=== PATIENT | male | born 1945 | race Caucasian/White ===

== ENCOUNTER 2016-10-27 | Outpatient (CLI) | payer MEDICARE, OTHER | END 2016-10-27 01:04 | disposition short-term general hospital (02) | DX: R07.9 Chest pain, unspecified (principal) | CPT/HCPCS: A0425; A0427 ==

== ENCOUNTER 2016-11-02 13:22 | Outpatient (CLI) | payer MEDICARE, OTHER | END 2016-11-02 13:23 | disposition home or self-care (01) | DX: J84.10 Pulmonary fibrosis, unspecified (principal); E11.9 Type 2 diabetes mellitus without complications; I25.10 Atherosclerotic heart disease of native coronary artery without angina pectoris; M54.5 Low back pain ==

== ENCOUNTER 2016-12-23 14:07 | Outpatient (CLI) | payer MEDICARE, OTHER | END 2016-12-23 14:08 | disposition home or self-care (01) | DX: G47.33 Obstructive sleep apnea (adult) (pediatric) (principal) | CPT/HCPCS: 99214; G0463 ==

== ENCOUNTER 2017-01-25 11:29 | Outpatient (CLI) | payer MEDICARE, OTHER ==
[2017-01-25 19:50] LABS: ALBUMIN/GLOBULIN RATIO 1.1 (1.0-2.2); BILIRUBIN,TOTAL 0.3 mg/dL (0.2-1.0); CALCIUM 9.5 mg/dL (8.5-10.3); CREATININE 0.9 mg/dL (0.6-1.2); POTASSIUM 4.1 mmol/L (3.5-5.0); TOTAL PROTEIN 7.5 g/dL (6.7-8.2)
[2017-01-25 20:06] LABS: BASOPHILS # (AUTO) 0.1 10^3/uL (0.0-0.1); BASOPHILS % (AUTO) 0.6 %; EOSINOPHILS # (AUTO) 0.3 10^3/uL (0.0-0.7); EOSINOPHILS % (AUTO) 2.3 %; HCT - HEMATOCRIT 41.2 % (42.0-52.0); HGB - HEMOGLOBIN 13.6 g/dL (14.0-18.0); LYMPHOCYTES # (AUTO) 1.6 10^3/uL (1.5-3.5); LYMPHOCYTES % (AUTO) 13.1 %; MEAN CORPUSCULAR HEMOGLOBIN 29.4 pg (27.0-31.0); MEAN CORPUSCULAR VOLUME 89.2 fL (80.0-94.0); MEAN PLATELET VOLUME 9.4 fL (7.4-11.4); MONOCYTES # (AUTO) 0.9 10^3/uL (0.0-1.0); MONOCYTES % (AUTO) 7.5 %; NEUTROPHILS # (AUTO) 9.1 10^3/uL (1.5-6.6); NEUTROPHILS % (AUTO) 76.5 %; NUCLEATED RED BLOOD CELLS AUTO 0.1 /100WBC; RED BLOOD COUNT 4.62 10^6/uL (4.70-6.10); RED CELL DISTRIBUTION WIDTH 14.3 % (12.0-15.0); UNCORRECTED WHITE BLOOD COUNT 11.9 x10^3/uL; WHITE BLOOD COUNT 11.9 x10^3/uL (4.8-10.8)
== END 2017-01-25 23:59 | disposition home or self-care (01) ==
LOC: LAB.WCP 11:29
PROVIDERS: ATTEND Family Medicine
DX: E11.9 Type 2 diabetes mellitus without complications (principal); I25.10 Atherosclerotic heart disease of native coronary artery without angina pectoris
CPT/HCPCS: 36415; 80053; 85025

== ENCOUNTER 2017-02-16 04:27 | Outpatient (CLI) | payer MEDICARE, OTHER | END 2017-02-16 04:28 | disposition critical access hospital (66) | LOC: EMS 04:27 | PROVIDERS: ATTEND Surgery | DX: R07.9 Chest pain, unspecified (principal) | CPT/HCPCS: A0425; A0427 ==

== ENCOUNTER 2017-02-16 04:45 | Emergency (ER) | payer MEDICARE, OTHER ==
[2017-02-16] MEDS ORDERED: SODIUM CHLORIDE 0.9% 1,000 ML IV ONE (05:06)
--- NOTE | 2017-02-16 05:08 | ED Physician Documentation ---
PD HPI CHEST PAIN - Stated complaint Stated Complaint: CP - Chief complaint Chief Complaint: Cardiac - History obtained from History obtained from: Patient, EMS - History of Present Illness Timing - onset: Enter time (2199), Today Timing - onset during: Rest Timing - duration: Hours Timing - details: Gradual onset, Now resolved Quality: Pressure Location: Substernal, Left chest Improved by: Nitro (given by medics) Worsened by: Exertion Associated symptoms: No: Shortness of air, Diaphoresis, Nausea, Vomiting Similar symptoms before: Diagnosis (angina) Recently seen: Other (had a stent placed in December of this year saw the body designer on 02-10-17 and his metoprolol was increased to 3 pills per day.) - Additional information Additional information: 71 y/o male with a history of CAD and angina has had angina this evening that has not responded to 3 nitros given at home and he did get relief of this with nitro given in the ambulance. He arrives pain free. He notes that he has angina and uses nitro about 3 times per week with exertion or stress and this usually works. Tonight he was celebrating with a granddaughter graduating and he had extra cake and ice cream today and he has not been taking care of his diabetes. Review of Systems Constitutional: denies: Fever Eyes: denies: Decreased vision Ears: denies: Ear pain Nose: denies: Congestion Throat: denies: Sore throat Cardiac: reports: Chest pain / pressure. denies: Palpitations, Pedal edema, Calf pain Respiratory: denies: Dyspnea, Cough, Wheezing GI: denies: Abdominal Pain, Nausea, Vomiting : denies: Dysuria, Frequency PD PAST MEDICAL HISTORY - Past Medical History Cardiovascular: Congestive heart failure, Hypertension, Coronary artery disease , Valve disorder Endocrine/Autoimmune: Type 2 diabetes GI: GERD Musculoskeletal: Fibromyalgia - Past Surgical History Past Surgical History: Yes Cardiovascular: Coronary stent, Other - Present Medications Home Medications: Ambulatory Orders Medication Instructions Recorded Confirmed Albuterol 2.5 mg INH Q4H PRN 06/09/13 02/16/17 Amitriptyline [Elavil] 50 mg PO HS 06/09/13 02/16/17 Aspirin Chewable [St Jr 81 mg PO DAILY 06/09/13 02/16/17 Aspirin] Atorvastatin Calcium [Lipitor] 80 mg PO HS 06/09/13 02/16/17 Clonazepam [Klonopin] 0.5 mg PO HS 06/09/13 02/16/17 Glucosamine Sulfate Dipot Chlr 1,000 mg PO DAILY 06/09/13 02/16/17 [Glucosamine] HYDROcod/ACETAM 5/325 [Vicodin 1 - 2 ea PO Q6H PRN 06/09/13 02/16/17 5/325] Insulin Glargine,Hum.rec.anlog 35 unit SQ QAM 06/09/13 02/16/17 [Lantus] Metformin HCl [Metformin HCl ER] 500 mg PO BID 06/09/13 02/16/17 Metoprolol Succinate [Toprol Xl] 50 mg PO BID 06/09/13 02/16/17 Mometasone Furoate [Nasonex] 17 gm NS DAILY PRN 06/09/13 02/16/17 Multivitamin [Multi-Vitamin Daily] 1 each PO DAILY 06/09/13 02/16/17 Nitroglycerin [Nitrostat] 0.4 mg SL Q5MIN PRN 06/09/13 02/16/17 Omeprazole 20 mg PO BID 06/09/13 02/16/17 Ranitidine HCl [Acid Control] 150 mg PO HS 06/09/13 02/16/17 glipiZIDE [Glucotrol] 5 mg PO QAM 06/09/13 02/16/17 Cholecalciferol (Vitamin D3) 1,000 unit PO DAILY 09/11/13 02/16/17 [Vitamin D3] Isosorbide Mononitrate ER [Imdur] 30 mg PO DAILY 09/11/13 02/16/17 Ascorbic Acid [Vitamin C] 1,000 mg PO DAILY 07/05/15 02/16/17 Ezetimibe [Zetia] 10 mg PO DAILY PM 02/25/16 02/16/17 - Allergies Allergies/Adverse Reactions: Allergies Allergy/AdvReac Type Severity Reaction Status Date / Time amiodarone Allergy Severe Anaphylaxis Verified 02/16/17 04:54 levodopa Allergy Severe Nausea Verified 02/16/17 04:54 venom-honey bee Allergy Severe Edema/Light Verified 02/16/17 04:54 [bee venom (honey bee)] headed moxifloxacin HCl * AdvReac Severe GI upset Verified 02/16/17 04:54 [From Avelox] - Social History Does the pt smoke?: No Smoking Status: Never smoker Does the pt drink ETOH?: No Does the pt have substance abuse?: No - Immunizations Immunizations are current?: Yes - POLST Patient has POLST: Yes POLST Status: Limited Interventions PD ED PE NORMAL - Vitals Vital signs reviewed: Yes (hypertensive. ) - General General: Alert and oriented X 3, No acute distress, Well developed/nourished - HEENT HEENT: Atraumatic, PERRL, EOMI - Neck Neck: Supple, no meningeal sign - Cardiac Cardiac: RRR, Other (2/6 holosystolic blowing murmer at LSB) - Respiratory Respiratory: No respiratory distress, Clear bilaterally - Abdomen Abdomen: Soft, Non tender - Back Back: No CVA TTP, No spinal TTP - Derm Derm: Normal color, Warm and dry, No rash - Extremities Extremities: No deformity, No edema - Neuro Neuro: Alert and oriented X 3, No motor deficit, No sensory deficit, Normal speech - Psych Psych: Normal mood, Normal affect Results - Vitals Vitals: Vital Signs - 24 hr 02/16/17 02/16/17 02/16/17 04:47 05:52 06:10 Temperature 36.3 C L Heart Rate 84 77 89 Respiratory 17 18 21 Rate Blood Pressure 179/82 H 165/75 H 174/84 H O2 Saturation 96 100 100 02/16/17 02/16/17 02/16/17 06:35 06:49 07:06 Temperature Heart Rate 86 90 85 Respiratory 18 19 19 Rate Blood Pressure 182/80 H 160/76 H 152/81 H O2 Saturation 99 100 100 Oxygen O2 Source Nasal cannula - EKG (time done) 0452 Rate: Rate (enter#) (79) Rhythm: LAE Intervals: RBBB Compare to prior EKG: Changed from prior EKG (SPT 07-05-15 rate has increased. ) Computer interpretation: Agree with computer - Labs Labs: Laboratory Tests 02/16/17 02/16/17 02/16/17 05:49 05:49 05:49 WBC RBC Hgb Hct MCV MCH MCHC RDW Plt Count MPV Neut # Lymph # Trigg # Eos # Baso # Absolute Nucleated RBC Nucleated RBCs Sodium 136 Potassium 4.5 Chloride 101 Carbon Dioxide 27 Anion Gap 8.0 BUN 12 Creatinine 0.8 Estimated GFR (MDRD) 96 Glucose 324 H Calcium 8.8 Total Bilirubin 0.4 AST 17 ALT 23 Alkaline Phosphatase 94 Troponin I 0.05 B-Natriuretic Peptide 148 H Total Protein 6.9 Albumin 3.8 Globulin 3.1 Albumin/Globulin Ratio 1.2 Lipase 14 L 02/16/17 06:10 WBC 8.5 RBC 3.90 L Hgb 11.7 L Hct 34.9 L MCV 89.4 MCH 30.1 MCHC 33.7 RDW 14.2 Plt Count 163 MPV 8.7 Neut # 6.6 Lymph # 0.9 L Trigg # 0.7 Eos # 0.2 Baso # 0.1 Absolute Nucleated RBC 0.00 Nucleated RBCs 0.0 Sodium Potassium Chloride Carbon Dioxide Anion Gap BUN Creatinine Estimated GFR (MDRD) Glucose Calcium Total Bilirubin AST ALT Alkaline Phosphatase Troponin I B-Natriuretic Peptide Total Protein Albumin Globulin Albumin/Globulin Ratio Lipase - Rads (name of study) 2 view chest Radiology: Prelim report reviewed (Impression: 1. Postoperative changes with chronic pleural and parenchymal opacities. 2. Minimal superimposed acute infiltrate or edema not excluded.), EMP read indepedently, See rad report Procedures - IVC sono (time) 0455 Bedside IVC sono: IVC measures (cm) (1.02), IVC collapsed c insp (cm) (complete) , Dehydration PD MEDICAL DECISION MAKING - ED course Complexity details: reviewed old records, reviewed results, re-evaluated patient , considered differential, d/w patient, d/w family ED course: 71 y/o male with a history of angina is usually stable with this and requires only one nitro. He has bad CAD with [address] This morning he appears mildly dehydrated and his angina recurs despite addition of fluids. He is given a 5th and a 6th nitro and his pressure is running high and he is given an inch of nitro paste. Dr. Hoyt cardiology at [facility] diamond powder mixer for Dr. Martinez has accepted the patient in transfer and we have started a heparin drip as well. Departure - Departure Disposition: 02 Transfer Acute Care Hosp Clinical Impression: Unstable angina, Dehydration Hypertension Qualifiers: Hypertension type: essential hypertension Qualified Code(s): I10 - Essential ( primary) hypertension Condition: Fair
[2017-02-16] MEDS ORDERED: NITROGLYCERIN SL 0.4 MG TABLET SL ONE (05:22)
[2017-02-16] MEDS ORDERED: NITROGLYCERIN SL 0.4 MG TABLET SL STA ×3 (05:22→07:44)
--- NOTE | 2017-02-16 05:53 | XRAY Preliminary Report ---
Exam: XR Chest 2 View PA/LAT IMPRESSION: 1. Postoperative changes with chronic pleural and parenchymal opacities. 2. Minimal superimposed acute infiltrate or edema not excluded. [facility] SITE ID: [id number]
--- NOTE | 2017-02-16 05:56 | XRAY Report ---
EXAM: CHEST RADIOGRAPHY EXAM DATE: 02/16/2017 05:35 AM. CLINICAL HISTORY: Chest pain . COMPARISON: 02/26/2016. TECHNIQUE: 2 views. FINDINGS: Lungs/Pleura: Chronic pleural and parenchymal opacities are again seen. There could be minimal superi mposed acute infiltrate or edema. No pneumothorax. Mediastinum: Heart and mediastinal contours are unremarkable. Other: Median sternotomy and CABG. IMPRESSION: 1. Postoperative changes with chronic pleural and parenchymal opacities. 2. Minimal superimposed acute infiltrate or edema not excluded. [facility] Referring Provider Line: [phone] SITE ID: [id number]
[2017-02-16] MEDS ORDERED: NITROGLYCERIN 2% PASTE TOP STA ×2 (06:08→07:45)
[2017-02-16] MEDS ORDERED: NITROGLYCERIN 2% PASTE TOP ONE ×2 (06:08→07:45)
[2017-02-16 06:10] LABS: ALBUMIN/GLOBULIN RATIO 1.2 (1.0-2.2); BILIRUBIN,TOTAL 0.4 mg/dL (0.2-1.0); CALCIUM 8.8 mg/dL (8.5-10.3); CREATININE 0.8 mg/dL (0.6-1.2); POTASSIUM 4.5 mmol/L (3.5-5.0); TOTAL PROTEIN 6.9 g/dL (6.7-8.2)
[2017-02-16 06:16] LABS: BASOPHILS # (AUTO) 0.1 10^3/uL (0.0-0.1); BASOPHILS % (AUTO) 0.6 %; EOSINOPHILS # (AUTO) 0.2 10^3/uL (0.0-0.7); EOSINOPHILS % (AUTO) 2.7 %; HCT - HEMATOCRIT 34.9 % (42.0-52.0); HGB - HEMOGLOBIN 11.7 g/dL (14.0-18.0); LYMPHOCYTES # (AUTO) 0.9 10^3/uL (1.5-3.5); LYMPHOCYTES % (AUTO) 10.4 %; MEAN CORPUSCULAR HEMOGLOBIN 30.1 pg (27.0-31.0); MEAN CORPUSCULAR HGB CONC 33.7 g/dL (32.0-36.0); MEAN CORPUSCULAR VOLUME 89.4 fL (80.0-94.0); MEAN PLATELET VOLUME 8.7 fL (7.4-11.4); MONOCYTES # (AUTO) 0.7 10^3/uL (0.0-1.0); MONOCYTES % (AUTO) 8.2 %; NEUTROPHILS # (AUTO) 6.6 10^3/uL (1.5-6.6); NEUTROPHILS % (AUTO) 78.1 %; RED CELL DISTRIBUTION WIDTH 14.2 % (12.0-15.0); UNCORRECTED WHITE BLOOD COUNT 8.5 x10^3/uL; WHITE BLOOD COUNT 8.5 x10^3/uL (4.8-10.8)
[2017-02-16] MEDS ORDERED: HEPARIN 5,000 UNIT/ML VIAL IVP STA (06:54)
[2017-02-16] MEDS ORDERED: HEPARIN 25,000 UNITS/500 ML 500 ML IV STA (06:54)
[2017-02-16] MEDS ORDERED: HEPARIN 5,000 UNIT/ML VIAL ONE (06:58)
[2017-02-16] MEDS ORDERED: HEPARIN 25,000 UNITS/500 ML 500 ML IV ONE (06:59)
[2017-02-16 07:53] VITALS: BP 163/81
== END 2017-02-16 08:00 | disposition short-term general hospital (02) ==
LOC: EDUNIT# → ED 04:45 → SUPCPDRO 04:45 → ED 08:00
DX: I25.110 Atherosclerotic heart disease of native coronary artery with unstable angina pectoris (principal); E86.0 Dehydration; I45.10 Unspecified right bundle-branch block; R94.31 Abnormal electrocardiogram [ECG] [EKG]; I11.0 Hypertensive heart disease with heart failure; I50.9 Heart failure, unspecified; E11.9 Type 2 diabetes mellitus without complications; Z79.4 Long term (current) use of insulin; Z79.84 Long term (current) use of oral hypoglycemic drugs; K21.9 Gastro-esophageal reflux disease without esophagitis; M79.7 Fibromyalgia; Z79.82 Long term (current) use of aspirin
CPT/HCPCS: 36415; 71020; 80053; 83690; 83880; 84484; 85025; 93005; 93010; 96361; 96365; 96376; 99284; 99285; A9270

== ENCOUNTER 2017-02-16 08:04 | Outpatient (CLI) | payer MEDICARE, OTHER | END 2017-02-16 08:05 | disposition short-term general hospital (02) | LOC: EMS 08:04 | PROVIDERS: ATTEND Surgery | DX: I20.0 Unstable angina (principal) | CPT/HCPCS: A0170; A0425; A0426 ==

== ENCOUNTER 2017-03-22 08:00 | Outpatient (CLI) | payer MEDICARE, OTHER ==
[2017-03-22 20:05] LABS: BASOPHILS # (AUTO) 0.1 10^3/uL (0.0-0.1); BASOPHILS % (AUTO) 0.7 %; EOSINOPHILS # (AUTO) 0.4 10^3/uL (0.0-0.7); EOSINOPHILS % (AUTO) 5.1 %; HCT - HEMATOCRIT 35.7 % (42.0-52.0); HGB - HEMOGLOBIN 11.9 g/dL (14.0-18.0); LYMPHOCYTES # (AUTO) 1.2 10^3/uL (1.5-3.5); LYMPHOCYTES % (AUTO) 13.8 %; MEAN CORPUSCULAR HEMOGLOBIN 29.6 pg (27.0-31.0); MEAN CORPUSCULAR HGB CONC 33.4 g/dL (32.0-36.0); MEAN CORPUSCULAR VOLUME 88.4 fL (80.0-94.0); MEAN PLATELET VOLUME 8.5 fL (7.4-11.4); MONOCYTES # (AUTO) 0.6 10^3/uL (0.0-1.0); MONOCYTES % (AUTO) 7.5 %; NEUTROPHILS # (AUTO) 6.1 10^3/uL (1.5-6.6); NEUTROPHILS % (AUTO) 72.9 %; RED BLOOD COUNT 4.04 10^6/uL (4.70-6.10); RED CELL DISTRIBUTION WIDTH 14.6 % (12.0-15.0); UNCORRECTED WHITE BLOOD COUNT 8.4 x10^3/uL; WHITE BLOOD COUNT 8.4 x10^3/uL (4.8-10.8)
[2017-03-22 20:34] LABS: HEMOGLOBIN A1C 0.7 g/dL
[2017-03-22 21:02] LABS: ALBUMIN/GLOBULIN RATIO 1.4 (1.0-2.2); BILIRUBIN,TOTAL < 0.2 mg/dL (0.2-1.0); BUN - BLOOD UREA NITROGEN 11 mg/dL (6-20); CARBON DIOXIDE - CO2 28 mmol/L (21-32); CHLORIDE 103 mmol/L (101-111); CREATININE 0.9 mg/dL (0.6-1.2); GFR - MDRD 83 (>89); GLUCOSE 114 mg/dL (70-100); POTASSIUM 4.4 mmol/L (3.5-5.0); SODIUM 138 mmol/L (135-145); TOTAL PROTEIN 6.6 g/dL (6.7-8.2)
[2017-03-22 22:37] LABS: PLATELET MORPHOLOGY NORMAL APPEARANCE (NORMAL)
[2017-03-22 22:38] LABS: PLATELET ESTIMATE, MANUAL NORMAL (130-450,000) (NORMAL)
== END 2017-03-22 08:01 | disposition home or self-care (01) ==
LOC: LAB.WCP 08:00
PROVIDERS: ATTEND Family Medicine
DX: J18.0 Bronchopneumonia, unspecified organism (principal); E11.9 Type 2 diabetes mellitus without complications; I20.0 Unstable angina
CPT/HCPCS: 36415; 80053; 83036; 85025

== ENCOUNTER 2017-04-23 11:57 | Outpatient (CLI) | payer MEDICARE, OTHER | END 2017-04-23 11:58 | disposition critical access hospital (66) | LOC: EMS 11:57 | PROVIDERS: ATTEND Surgery | DX: R07.9 Chest pain, unspecified (principal) | CPT/HCPCS: A0425; A0427 ==

== ENCOUNTER 2017-04-23 12:16 | Emergency (ER) | payer MEDICARE, OTHER ==
--- NOTE | 2017-04-23 12:57 | ED Physician Documentation ---
PD HPI CHEST PAIN - Stated complaint Stated Complaint: CP - Chief complaint Chief Complaint: Cardiac - History obtained from History obtained from: Patient - History of Present Illness Timing - onset: Last night (CP last night for about an hour, improved with few nitro SL. He awoke with some dull pains; not improved with NTG.) Timing - onset during: Rest Timing - details: Abrupt onset Quality: Aching, Pain Location: Substernal, Left chest Radiation: No: Jaw, Neck, Back Improved by: No: Nitro Worsened by: No: Exertion, Inspiration, Movement, Palpation Associated symptoms: Shortness of air. No: Diaphoresis, Nausea, Feeling faint / dizzy, Palpitations Similar symptoms before: Diagnosis (angina and prior MIs. Last seen by Cardiology March with med changes, seen and admitted for CP February. Last heart cath November 2016 without stentable lesions (small vessel occlusions that are too small/distal to stent).) Recently seen: Clinic, Emergency Dept, Admitted Review of Systems Constitutional: denies: Fever, Chills Nose: denies: Rhinorrhea / runny nose, Congestion Throat: denies: Sore throat Cardiac: reports: Chest pain / pressure, Pedal edema. denies: Palpitations, Calf pain Respiratory: denies: Cough GI: denies: Abdominal Pain, Nausea, Vomiting, Diarrhea : denies: Frequency, Hematuria Skin: denies: Rash, Lesions Neurologic: denies: Generalized weakness, Focal weakness, Numbness, Near syncope Endocrine: denies: Weight loss, Weight gain Immunocompromised: denies: Immunocompromised PD PAST MEDICAL HISTORY - Past Medical History Past Medical History: Yes Cardiovascular: Congestive heart failure, Hypertension, Coronary artery disease , [place], Arrhythmia, Valve disorder Respiratory: Shortness of breath, Sleep apnea, CPAP use Neuro: Tremors Endocrine/Autoimmune: Type 2 diabetes GI: GERD, Chronic constipation, Diverticulitis HEENT: Other Psych: None Musculoskeletal: Osteoarthritis, Fibromyalgia, Rheumatoid arthritis Derm: None - Past Surgical History Past Surgical History: Yes General: Other Cardiovascular: Coronary stent, Other - Present Medications Home Medications: Ambulatory Orders Medication Instructions Recorded Confirmed Albuterol 2.5 mg INH Q4H PRN 06/09/13 04/23/17 Amitriptyline [Elavil] 50 mg PO HS 06/09/13 04/23/17 Aspirin Chewable [St Jr 81 mg PO DAILY 06/09/13 04/23/17 Aspirin] Clonazepam [Klonopin] 0.5 mg PO HS 06/09/13 04/23/17 HYDROcod/ACETAM 5/325 [Vicodin 1 - 2 ea PO Q6H PRN 06/09/13 04/23/17 5/325] Insulin Glargine,Hum.rec.anlog 35 unit SQ QAM 06/09/13 04/23/17 [Lantus] Metformin HCl [Metformin HCl ER] 500 mg PO BID 06/09/13 04/23/17 Metoprolol Succinate [Toprol Xl] 50 mg PO TID 06/09/13 04/23/17 Mometasone Furoate [Nasonex] 17 gm NS DAILY PRN 06/09/13 04/23/17 Multivitamin [Multi-Vitamin Daily] 1 each PO DAILY 06/09/13 04/23/17 Nitroglycerin [Nitrostat] 0.4 mg SL Q5MIN PRN 06/09/13 04/23/17 glipiZIDE [Glucotrol] 5 mg PO QAM 06/09/13 04/23/17 Cholecalciferol (Vitamin D3) 1,000 unit PO DAILY 09/11/13 04/23/17 [Vitamin D3] Isosorbide Mononitrate ER [Imdur] 30 mg PO DAILY 09/11/13 04/23/17 Ascorbic Acid [Vitamin C] 1,000 mg PO DAILY 07/05/15 04/23/17 Ezetimibe [Zetia] 10 mg PO DAILY PM 02/25/16 04/23/17 Atorvastatin Calcium [Lipitor] 80 mg PO 04/23/17 Clopidogrel [Plavix] 75 mg PO DAILY 04/23/17 04/23/17 Lisinopril [Prinivil] 5 mg PO 04/23/17 Magnesium Oxide 400 mg PO 04/23/17 Pantoprazole [Protonix] 40 mg PO 04/23/17 04/23/17 Ranolazine [Ranexa] 500 mg PO 04/23/17 Sodium Fluoride 0.5 mg PO 04/23/17 amLODIPine [Norvasc] 5 mg PO DAILY 04/23/17 04/23/17 - Allergies Allergies/Adverse Reactions: Allergies Allergy/AdvReac Type Severity Reaction Status Date / Time amiodarone Allergy Severe Anaphylaxis Verified 06/13/17 04:54 levodopa Allergy Severe Nausea Verified 02/16/17 04:54 venom-honey bee Allergy Severe Edema/Light Verified 02/16/17 04:54 [bee venom (honey bee)] headed moxifloxacin HCl * AdvReac Severe GI upset Verified 02/16/17 04:54 [From Avelox] - Social History Does the pt smoke?: No Smoking Status: Never smoker Does the pt drink ETOH?: No Does the pt have substance abuse?: No - Immunizations Immunizations are current?: Yes - POLST Patient has POLST: Yes POLST Status: Limited Interventions PD ED PE NORMAL - Vitals Vital signs reviewed: Yes - General General: Alert and oriented X 3, No acute distress, Well developed/nourished - HEENT HEENT: Pharynx benign - Neck Neck: Supple, no meningeal sign, No adenopathy, No JVD - Cardiac Cardiac: RRR, No murmur - Respiratory Respiratory: Clear bilaterally - Abdomen Abdomen: Soft, Non tender - Back Back: No CVA TTP - Derm Derm: Normal color, Warm and dry - Extremities Extremities: No tenderness to palpate, Normal ROM s pain, No calf tenderness / cord, Other (1+ edema in both legs. ) - Neuro Neuro: Alert and oriented X 3, No motor deficit, Normal speech - Psych Psych: Normal mood Results - Vitals Vitals: Vital Signs - 24 hr 04/23/17 04/23/17 04/23/17 16:01 16:05 16:19 Heart Rate 94 99 94 Respiratory 20 22 21 Rate Blood Pressure 155/73 H 143/68 H 137/62 H O2 Saturation 96 98 94 Oxygen O2 Source Room air - EKG (time done) 12:20 Rate: Rate (enter#) (86) Rhythm: NSR [place]: Normal Intervals: Normal MT Ischemia: Non specific changes. No: ST elevation c/w ischemia, ST depression Compare to prior EKG: Unchanged from prior EKG - Labs Labs: Laboratory Tests 04/23/17 04/23/17 04/23/17 13:52 13:52 13:52 WBC 9.1 RBC 3.83 L Hgb 11.6 L Hct 34.1 L MCV 89.1 MCH 30.3 MCHC 34.0 RDW 15.0 Plt Count 245 MPV 8.2 Neut # 7.2 H Lymph # 0.9 L [place] # 0.8 Eos # 0.2 Baso # 0.0 Absolute Nucleated RBC 0.00 Nucleated RBCs 0.0 Sodium 137 Potassium 4.0 Chloride 99 L Carbon Dioxide 29 Anion Gap 9.0 BUN 10 Creatinine 0.8 Estimated GFR (MDRD) 96 Glucose 171 H Calcium 9.2 Magnesium 1.8 Total Bilirubin 0.6 AST 17 ALT 15 Alkaline Phosphatase 85 Troponin I 0.04 B-Natriuretic Peptide Total Protein 6.9 Albumin 3.7 Globulin 3.2 Albumin/Globulin Ratio 1.2 Lipase 14 L 04/23/17 13:52 WBC RBC Hgb Hct MCV MCH MCHC RDW Plt Count MPV Neut # Lymph # [place] # Eos # Baso # Absolute Nucleated RBC Nucleated RBCs Sodium Potassium Chloride Carbon Dioxide Anion Gap BUN Creatinine Estimated GFR (MDRD) Glucose Calcium Magnesium Total Bilirubin AST ALT Alkaline Phosphatase Troponin I B-Natriuretic Peptide 259 H Total Protein Albumin Globulin Albumin/Globulin Ratio Lipase - Rads (name of study) chest Radiology: Prelim report reviewed (no acute process) PD MEDICAL DECISION MAKING - ED course Complexity details: reviewed old records, reviewed results, considered differential, d/w patient, d/w windows consultant (front desk receptionist cardiology, who reviewed chart and recent cath. No stentable lesions, but small vessels problems. Medical management is only option. To increase oral nitrates. His BP has been relatively low at times (103-105 on some readings from home) so can hold other BP med initially. ) Departure - Departure Disposition: Home, Self Care Clinical Impression: Angina pectoris Chest pain Qualifiers: Chest pain type: precordial pain Qualified Code(s): R07.2 - Precordial pain Condition: Stable Record reviewed to determine appropriate education?: Yes Instructions: ED Chest Pain Angina Stable Follow-Up: Travon Morales MD [Primary Care Provider] - Lee Ann Martinez MD [Physician No Access] - Comments: Increase your nitrate isosorbide dinitrate 20 mg to 3 times a day, morning dinner and bedtime. Hold her lisinopril for now and if her blood pressure is still doing well then you can reinstitute it. If her blood pressure is still low then consider decreasing the metoprolol from 3 times to twice daily. However the cardiology office should call you on Wednesday to see how you are doing and arrange a follow-up. Return to the ER or call your enterprise sales person if significant symptoms over the weekend despite these medication changes. Discharge Date/Time: 04/23/17 16:48
--- NOTE | 2017-04-23 14:03 | XRAY Preliminary Report ---
Exam: XR Chest 2 View PA/LAT IMPRESSION: 1. Stable chest 2. Airways disease 3. Masslike opacity at the right lung base with adjacent pleural thickening or fluid most suggestive of round atelectasis, similar. Three-month follow-up chest radiograph can be obtained. [facility] SITE ID: [id number]
--- NOTE | 2017-04-23 14:06 | XRAY Report ---
EXAM: CHEST RADIOGRAPHY EXAM DATE: 04/23/2017 01:33 PM. CLINICAL HISTORY: Recurrent chest pain, worse last night. COMPARISON: Chest radiograph 02/16/2017. TECHNIQUE: 2 views. FINDINGS: Lungs/Pleura: Chronic lung changes. Masslike opacity at the right lung base adjacent to pleural thick ening or effusion with convergence of vessels. Mediastinum: Stable. Coronary stent. Mediastinal surgical clips. Other: Status post median sternotomy. IMPRESSION: 1. Stable chest 2. Airways disease 3. Masslike opacity at the right lung base with adjacent pleural thickening or fluid most suggestive of round atelectasis, similar. Three-month follow-up chest radiograph can be obtained. [facility] Referring Provider Line: [phone] SITE ID: [id number]
[2017-04-23 14:29] LABS: BASOPHILS % (AUTO) 0.4 %; EOSINOPHILS # (AUTO) 0.2 10^3/uL (0.0-0.7); EOSINOPHILS % (AUTO) 1.8 %; HCT - HEMATOCRIT 34.1 % (42.0-52.0); HGB - HEMOGLOBIN 11.6 g/dL (14.0-18.0); LYMPHOCYTES # (AUTO) 0.9 10^3/uL (1.5-3.5); LYMPHOCYTES % (AUTO) 10.2 %; MEAN CORPUSCULAR HEMOGLOBIN 30.3 pg (27.0-31.0); MEAN CORPUSCULAR VOLUME 89.1 fL (80.0-94.0); MEAN PLATELET VOLUME 8.2 fL (7.4-11.4); MONOCYTES # (AUTO) 0.8 10^3/uL (0.0-1.0); MONOCYTES % (AUTO) 8.6 %; NEUTROPHILS # (AUTO) 7.2 10^3/uL (1.5-6.6); RED BLOOD COUNT 3.83 10^6/uL (4.70-6.10); UNCORRECTED WHITE BLOOD COUNT 9.1 x10^3/uL; WHITE BLOOD COUNT 9.1 x10^3/uL (4.8-10.8)
[2017-04-23 14:30] LABS: ALBUMIN/GLOBULIN RATIO 1.2 (1.0-2.2); BILIRUBIN,TOTAL 0.6 mg/dL (0.2-1.0); CALCIUM 9.2 mg/dL (8.5-10.3); CREATININE 0.8 mg/dL (0.6-1.2); MAGNESIUM 1.8 mg/dL (1.7-2.8); TOTAL PROTEIN 6.9 g/dL (6.7-8.2)
[2017-04-23] MEDS ORDERED: MORPHINE 2 MG/ML CARPUJECT IVP STA (15:39)
[2017-04-23] MEDS ORDERED: MORPHINE 2 MG/ML CARPUJECT ONE (15:58)
[2017-04-23] MEDS ORDERED: SODIUM CHLORIDE FLUSH 0.9% 10 ML SYRINGE IVP ONE (16:00)
[2017-04-23 16:21] VITALS: BP 137/62
== END 2017-04-23 16:48 | disposition home or self-care (01) ==
LOC: EDUNIT# → ED 12:16 → SUPCPDRO 12:16 → ED 16:48
DX: I25.119 Atherosclerotic heart disease of native coronary artery with unspecified angina pectoris (principal); I45.10 Unspecified right bundle-branch block; I10 Essential (primary) hypertension; I25.2 Old myocardial infarction; E11.8 Type 2 diabetes mellitus with unspecified complications; Z79.4 Long term (current) use of insulin; Z95.5 Presence of coronary angioplasty implant and graft; Z79.82 Long term (current) use of aspirin
CPT/HCPCS: 36415; 71020; 80053; 83690; 83735; 83880; 84484; 85025; 93005; 96374; 99284

== ENCOUNTER 2017-04-27 14:00 | Outpatient (CLI) | payer MEDICARE, OTHER ==
[2017-04-27 19:39] LABS: CHOL/HDL RATIO 2.8 (<5.0); CHOLESTEROL 73 mg/dL; HDL CHOLESTEROL 26 mg/dL
[2017-04-27 20:04] LABS: LDL/HDL RATIO 1.2 (<3.6); TRIGLYCERIDES 84 mg/dL; VLDL CHOLESTEROL 17 mg/dL
== END 2017-04-27 14:01 | disposition home or self-care (01) ==
LOC: LAB.WCP 14:00
PROVIDERS: ATTEND Family Medicine
DX: E11.40 Type 2 diabetes mellitus with diabetic neuropathy, unspecified (principal); J84.10 Pulmonary fibrosis, unspecified; I25.10 Atherosclerotic heart disease of native coronary artery without angina pectoris
CPT/HCPCS: 36415; 80061; 82043

== ENCOUNTER 2017-06-17 15:27 | Outpatient (CLI) | payer MEDICARE, OTHER ==
--- NOTE | 2017-06-18 08:21 | XRAY Report ---
THREE-VIEW LEFT ANKLE: 06/17/2017 CLINICAL INDICATION: Pain, edema. FINDINGS: AP, lateral, oblique views of the left ankle demonstrate mild osteoarthritis. There is no evidence of acute fracture or dislocation. Postoperative changes are noted in the medial soft tissu es. IMPRESSION: MILD OSTEOARTHRITIS. NO EVIDENCE OF FRACTURE. JOB #: [id number] EXT JOB #:[id number]
== END 2017-06-17 15:28 | disposition home or self-care (01) ==
LOC: DI 15:27
PROVIDERS: ATTEND Podiatrist
DX: M19.072 Primary osteoarthritis, left ankle and foot (principal)

== ENCOUNTER 2017-07-26 09:47 | Outpatient (CLI) | payer MEDICARE, OTHER ==
[2017-07-26 14:10] LABS: HEMOGLOBIN A1C 0.8 g/dL
[2017-07-26 14:30] LABS: ALBUMIN/GLOBULIN RATIO 1.3 (1.0-2.2); BILIRUBIN,TOTAL 0.5 mg/dL (0.2-1.0); CALCIUM 8.8 mg/dL (8.5-10.3); CREATININE 0.9 mg/dL (0.6-1.2); POTASSIUM 4.1 mmol/L (3.5-5.0); TOTAL PROTEIN 6.5 g/dL (6.7-8.2)
== END 2017-07-26 09:48 | disposition home or self-care (01) ==
LOC: LAB.WCP 09:47
PROVIDERS: ATTEND Family Medicine
DX: E11.40 Type 2 diabetes mellitus with diabetic neuropathy, unspecified (principal); I25.10 Atherosclerotic heart disease of native coronary artery without angina pectoris; J84.10 Pulmonary fibrosis, unspecified
CPT/HCPCS: 36415; 80053; 83036

== ENCOUNTER 2017-07-30 07:55 | Outpatient (CLI) | payer MEDICARE, OTHER ==
--- NOTE | 2017-07-30 11:06 | MRI Report ---
EXAM: MRI LUMBAR SPINE WITHOUT CONTRAST EXAM DATE: 07/30/2017 08:51 AM. CLINICAL HISTORY: Left leg numbness. COMPARISON: None. TECHNIQUE: Multiplanar, multisequence T1-weighted and fluid-sensitive sequences of the lumbar spine w ithout contrast. Other: None. FINDINGS: Numbering assumes 5 [id number] lumbar-type vertebral bodies. No suspicious marrow replacement is identified in the lumbar vertebral bodies. The urinary bladder is mildly distended. The distal tip of the conus medullaris is seen at the level near the L1-L2 disk space. T11 through L3: No posterior disk protrusion is present. L3-L4: A mild broad-based posterior disk protrusion is seen. No central canal or foraminal stenosis. L4-L5: Unremarkable. L5-S1: A minimal shallow left posterior lateral protrusion is seen. No central canal or foraminal pat nosis. Mild to moderate facet/ligamentum flavum hypertrophy is seen in the mid and lower lumbar spine. IMPRESSION: 1. Mild degenerative disk disease at L3-L4. 2. Minimal degenerative disk disease on the left at L5-S1. 3. No central canal or foraminal stenosis. 4. Mild urinary bladder distention. Comment: The following findings are so common in adults without low back pain that while we report th eir presence, they must be interpreted with caution and in the context of the clinical situation. (Re adrien Delaney et al, Spine 2001) Prevalence of findings in patients without low back pain: Disk degeneration (any evidence): 92% Disk desiccation/T2 signal loss: 83% Disk height loss: 56% Disk bulge: 64% Disk protrusion: 32% Annular tear/high intensity zone: 38% [facility] Referring Provider Line: [phone] SITE ID: [id number]
== END 2017-07-30 07:56 | disposition home or self-care (01) ==
LOC: DI 07:55
PROVIDERS: ATTEND Family Medicine
DX: M51.26 Other intervertebral disc displacement, lumbar region (principal); M51.27 Other intervertebral disc displacement, lumbosacral region; M51.36 Other intervertebral disc degeneration, lumbar region; M51.37 Other intervertebral disc degeneration, lumbosacral region
CPT/HCPCS: 72148

== ENCOUNTER 2017-10-28 08:00 | Outpatient (CLI) | payer MEDICARE, OTHER ==
[2017-10-28 19:01] LABS: ALBUMIN 3.9 g/dL (3.2-5.5); ALBUMIN/GLOBULIN RATIO 1.4 (1.0-2.2); BILIRUBIN,TOTAL 0.6 mg/dL (0.2-1.0); CALCIUM 8.9 mg/dL (8.5-10.3); CREATININE 1.1 mg/dL (0.6-1.2); TOTAL PROTEIN 6.7 g/dL (6.7-8.2)
[2017-10-28 19:03] LABS: HB2 TOTAL 13.3 g/dL; HEMOGLOBIN A1C 0.98 g/dL; HEMOGLOBIN A1C % 8.9 % (4.6-6.2)
== END 2017-10-28 08:01 | disposition home or self-care (01) ==
LOC: LAB.WCP 08:00
PROVIDERS: ATTEND Family Medicine
DX: E11.40 Type 2 diabetes mellitus with diabetic neuropathy, unspecified (principal); I25.10 Atherosclerotic heart disease of native coronary artery without angina pectoris
CPT/HCPCS: 36415; 80053; 83036

== ENCOUNTER 2017-11-04 03:48 | Outpatient (CLI) | payer MEDICARE, OTHER | END 2017-11-04 03:49 | disposition critical access hospital (66) | LOC: EMS 03:48 | PROVIDERS: ATTEND Surgery | DX: R51 Headache (principal); R53.83 Other fatigue; R47.81 Slurred speech; R29.6 Repeated falls | CPT/HCPCS: A0425; A0427 ==

== ENCOUNTER 2017-11-04 04:07 | Emergency (ER) | payer MEDICARE, OTHER ==
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
--- NOTE | 2017-11-04 04:51 | CT Report ---
EXAM: CT HEAD EXAM DATE: 11/04/2017 04:33 AM. CLINICAL HISTORY: Altered mental status. COMPARISON: None. TECHNIQUE: Multiaxial CT images were obtained from the foramen magnum to the vertex. Reformats: Coron al. IV contrast: None. In accordance with CT protocol optimization, one or more of the following dose reduction techniques w ere utilized for this exam: automated exposure control, adjustment of mA and/or KV based on patient s ize, or use of iterative reconstructive technique. FINDINGS: Parenchyma: No intraparenchymal hemorrhage. No evidence of mass, midline shift, or CT findings of inf arction. Haddad-white differentiation is distinct. Extraaxial Spaces: Normal for age. No subdural or epidural collections identified. Ventricles: Normal in size and position. Sinuses and Orbits: Imaged paranasal sinuses, orbits, and mastoids show no significant abnormality. C hanges of endoscopic sinus surgery. Bones: No evidence of fracture or calvarial defect. Other: None. IMPRESSION: No acute or focal intracranial abnormality. [facility] Referring Provider Line: [phone] SITE ID: [id number]
[2017-11-04 05:07] LABS: BASOPHILS # (AUTO) 0.1 10^3/uL (0.0-0.1); BASOPHILS % (AUTO) 0.8 %; EOSINOPHILS # (AUTO) 0.2 10^3/uL (0.0-0.7); EOSINOPHILS % (AUTO) 3.5 %; HGB - HEMOGLOBIN 11.3 g/dL (14.0-18.0); LYMPHOCYTES # (AUTO) 1.2 10^3/uL (1.5-3.5); LYMPHOCYTES % (AUTO) 17.9 %; MEAN CORPUSCULAR HEMOGLOBIN 29.4 pg (27.0-31.0); MEAN CORPUSCULAR HGB CONC 33.4 g/dL (32.0-36.0); MEAN CORPUSCULAR VOLUME 88.1 fL (80.0-94.0); MEAN PLATELET VOLUME 8.1 fL (7.4-11.4); MONOCYTES # (AUTO) 0.7 10^3/uL (0.0-1.0); NEUTROPHILS # (AUTO) 4.5 10^3/uL (1.5-6.6); NEUTROPHILS % (AUTO) 67.8 %; PLT - PLATELET COUNT 234 10^3/uL (130-450); RED BLOOD COUNT 3.84 10^6/uL (4.70-6.10); RED CELL DISTRIBUTION WIDTH 13.8 % (12.0-15.0); WHITE BLOOD COUNT 6.7 x10^3/uL (4.8-10.8)
[2017-11-04 05:26] LABS: ALBUMIN 3.5 g/dL (3.2-5.5); ALBUMIN/GLOBULIN RATIO 1.2 (1.0-2.2); ALKALINE PHOSPHATASE 74 IU/L (42-121); ALT ALANINE AMINOTRANSFERASE 20 IU/L (10-60); AST ASPARTATE AMINOTRANSFERASE 18 IU/L (10-42); BILIRUBIN,TOTAL 0.6 mg/dL (0.2-1.0); BUN - BLOOD UREA NITROGEN 10 mg/dL (6-20); CALCIUM 8.7 mg/dL (8.5-10.3); CARBON DIOXIDE - CO2 25 mmol/L (21-32); CHLORIDE 103 mmol/L (101-111); CREATININE 0.8 mg/dL (0.6-1.2); GFR - MDRD 96 (>89); GLUCOSE 240 mg/dL (70-100); SODIUM 136 mmol/L (135-145); TOTAL PROTEIN 6.5 g/dL (6.7-8.2)
[2017-11-04 05:28] LABS: MUDS CUTOFF CONCENTRATIONS CUTOFF CONC BELOW:
[2017-11-04 05:35] LABS: BILIRUBIN,URINE NEGATIVE (NEGATIVE); GLUCOSE, URINE (UA) 100 mg/dL (NEGATIVE); KETONES,URINE (UA) NEGATIVE (NEGATIVE); LEUKOCYTE ESTERASE, URINE NEGATIVE (NEGATIVE); NITRITE,URINE NEGATIVE (NEGATIVE); OCCULT BLOOD,URINE NEGATIVE (NEGATIVE); PROTEIN,URINE NEGATIVE (NEGATIVE); UROBILINOGEN,URINE 0.2 (NORMAL) E.U./dL (NORMAL)
[2017-11-04 05:38] LABS: CLARITY,URINE CLEAR (CLEAR)
[2017-11-04 05:58] LABS: AMPHETAMINE SCREEN,URINE NEGATIVE (NEGATIVE); BENZODIAZEPINES SCREEN, URINE NEGATIVE (NEGATIVE); COCAINE SCREEN URINE NEGATIVE (NEGATIVE); METHADONE SCREEN, URINE NEGATIVE (NEGATIVE); METHAMPHETAMINES SCREEN, URINE NEGATIVE (NEGATIVE); OPIATE SCREEN, URINE POSITIVE (NEGATIVE); OXYCODONE SCREEN, URINE NEGATIVE (NEGATIVE); PROPOXYPHENE SCREEN, URINE NEGATIVE (NEGATIVE); TRICYCLIC ANTIDEPRESSANT,URINE POSITIVE (NEGATIVE)
[2017-11-04 06:07] VITALS: BP 136/67
[2017-11-04 06:35] LABS: LIPASE < 10 U/L (22-51)
== END 2017-11-04 06:06 | disposition home or self-care (01) ==
LOC: EDUNIT# → ED 04:07
DX: R41.82 Altered mental status, unspecified (principal); I45.81 Long QT syndrome; I45.10 Unspecified right bundle-branch block; I11.0 Hypertensive heart disease with heart failure; I50.9 Heart failure, unspecified; I25.10 Atherosclerotic heart disease of native coronary artery without angina pectoris; I25.2 Old myocardial infarction; E11.9 Type 2 diabetes mellitus without complications; Z79.4 Long term (current) use of insulin; Z95.5 Presence of coronary angioplasty implant and graft; Z79.82 Long term (current) use of aspirin
CPT/HCPCS: 36415; 70450; 80053; 80306; 81001; 81003; 82375; 83690; 84443; 85025; 87086; 93005; 99283; 99285

== ENCOUNTER 2017-11-07 08:48 | Outpatient (CLI) | payer MEDICARE, OTHER ==
[2017-11-07] MEDS ORDERED: ALBUTEROL NEB 2.5 MG/3 ML INH ONE (09:30)
== END 2017-11-07 08:49 | disposition home or self-care (01) ==
LOC: RT 08:48
PROVIDERS: ATTEND Family Medicine
DX: J84.10 Pulmonary fibrosis, unspecified (principal)
CPT/HCPCS: 94060; 94729; J7613

== ENCOUNTER 2018-02-05 23:26 | Outpatient (CLI) | payer MEDICARE, OTHER | END 2018-02-05 23:27 | disposition critical access hospital (66) | LOC: EMS 23:26 | PROVIDERS: ATTEND Surgery | DX: R53.83 Other fatigue (principal); R53.1 Weakness; J02.9 Acute pharyngitis, unspecified | CPT/HCPCS: A0425; A0429 ==

== ENCOUNTER 2018-02-05 23:44 | Emergency (ER) | payer MEDICARE, OTHER ==
--- NOTE | 2018-02-05 23:54 | ED Physician Documentation ---
History of Present Illness - Stated complaint Stated Complaint: FEELING SICK, DECREASED ENERGY - Chief complaint Chief Complaint: Resp - History obtained from History obtained from: Patient - History of Present Illness Timing: Today Pain level now: 0 Improved by: no ameliorating factors Worsened by: no exacerbating factors - Additonal information Additional information: c/o nonproductive/dry cough despite chest congestion, mild sore throat, mild chest discomfort. fatigue, "just feel sick" (per patient) Review of Systems Constitutional: reports: Fatigue. denies: Fever, Chills, Sweats Cardiac: reports: Chest pain / pressure (mild, which patient relates to coughing ). denies: Palpitations, Pedal edema, Calf pain Respiratory: reports: Cough. denies: Dyspnea, Hemoptysis, Wheezing GI: reports: Reviewed and negative : denies: Dysuria, Frequency PD PAST MEDICAL HISTORY - Past Medical History Cardiovascular: Congestive heart failure, Hypertension, Coronary artery disease , [place], Arrhythmia, Valve disorder Respiratory: Shortness of breath, Sleep apnea, CPAP use Endocrine/Autoimmune: Type 2 diabetes GI: GERD, Chronic constipation, Diverticulitis HEENT: Other Psych: None Musculoskeletal: Osteoarthritis, Fibromyalgia, Rheumatoid arthritis Derm: None - Past Surgical History Past Surgical History: Yes General: Other Cardiovascular: Coronary stent, Other - Present Medications Home Medications: Ambulatory Orders Medication Instructions Recorded Confirmed Albuterol 2.5 mg INH Q4H PRN 06/09/13 12/27/17 Amitriptyline [Elavil] 50 mg PO HS 06/09/13 12/27/17 Aspirin Chewable [St Jr 81 mg PO DAILY 06/09/13 12/27/17 Aspirin] HYDROcod/ACETAM 5/325 [Vicodin 1 - 2 ea PO Q6H PRN 06/09/13 12/27/17 5/325] Insulin Glargine,Hum.rec.anlog 35 unit SQ QAM 06/09/13 12/27/17 [Lantus] Metformin HCl [Metformin HCl ER] 500 mg PO BID 06/09/13 12/27/17 Metoprolol Succinate [Toprol Xl] 50 mg PO TID 06/09/13 12/27/17 Mometasone Furoate [Nasonex] 17 gm NS DAILY PRN 06/09/13 12/27/17 Multivitamin [Multi-Vitamin Daily] 1 each PO DAILY 06/09/13 12/27/17 Nitroglycerin [Nitrostat] 0.4 mg SL Q5MIN PRN 06/09/13 12/27/17 clonazePAM [Klonopin] 0.5 mg PO HS 06/09/13 12/27/17 glipiZIDE [Glucotrol] 5 mg PO QAM 06/09/13 12/27/17 Cholecalciferol (Vitamin D3) 1,000 unit PO DAILY 09/11/13 12/27/17 [Vitamin D3] Ascorbic Acid [Vitamin C] 1,000 mg PO DAILY 07/05/15 12/27/17 Ezetimibe [Zetia] 10 mg PO DAILY PM 02/25/16 12/27/17 Atorvastatin Calcium [Lipitor] 80 mg PO DAILY 04/23/17 12/27/17 Clopidogrel [Plavix] 75 mg PO DAILY 04/23/17 12/27/17 Magnesium Oxide 400 mg PO DAILY 04/23/17 12/27/17 Pantoprazole [Protonix] 40 mg PO DAILY 04/23/17 12/27/17 Ranolazine [Ranexa] 500 mg PO BID 04/23/17 12/27/17 amLODIPine [Norvasc] 5 mg PO DAILY 04/23/17 12/27/17 Isosorbide Dinitrate 20 mg PO TID 05/24/17 12/27/17 Gabapentin 600 mg PO Q12H 09/20/17 12/27/17 - Allergies Allergies/Adverse Reactions: Allergies Allergy/AdvReac Type Severity Reaction Status Date / Time amiodarone Allergy Severe Anaphylaxis Verified 02/05/18 23:49 levodopa Allergy Severe Nausea Verified 02/05/18 23:49 venom-honey bee Allergy Severe Edema/Light Verified 02/05/18 23:49 [bee venom (honey bee)] headed moxifloxacin HCl * AdvReac Severe GI upset Verified 02/05/18 23:49 [From Avelox] - Social History Does the pt smoke?: No Smoking Status: Never smoker Does the pt drink ETOH?: No Does the pt have substance abuse?: No - Immunizations Immunizations are current?: Yes - POLST Patient has POLST: Yes POLST Status: Limited Interventions PD ED PE NORMAL - Vitals Vital signs reviewed: Yes - General General: Alert and oriented X 3, No acute distress, Well developed/nourished - HEENT HEENT: Moist mucous membranes, Pharynx benign - Neck Neck: Supple, no meningeal sign - Cardiac Cardiac: RRR - Respiratory Respiratory: No respiratory distress, Clear bilaterally - Abdomen Abdomen: Soft, Non tender - Back Back: No CVA TTP - Derm Derm: Normal color, Warm and dry - Extremities Extremities: No edema - Neuro Neuro: Alert and oriented 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, 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, No motor deficit, No sensory deficit, Normal speech PD ED PE EXPANDED - Cardiac Cardiac: Murmur Present Results - Vitals Vitals: Vital Signs - 24 hr 02/05/18 02/06/18 02/06/18 23:46 01:00 02:25 Temperature 36.8 C Heart Rate 74 69 76 Respiratory 18 16 18 Rate Blood Pressure 117/72 107/86 H 109/62 O2 Saturation 95 99 95 Oxygen O2 Source Room air - Labs Labs: Laboratory Tests 02/05/18 02/05/18 02/05/18 23:59 23:59 23:59 WBC 14.2 H RBC 4.17 L Hgb 12.7 L Hct 37.1 L MCV 88.8 MCH 30.4 MCHC 34.3 RDW 14.0 Plt Count 190 MPV 8.6 Neut # (Auto) 12.7 H Lymph # (Auto) 0.5 L [place] # (Auto) 0.8 Eos # (Auto) 0.2 Baso # (Auto) 0.1 Absolute Nucleated RBC 0.01 Nucleated RBC % 0.0 Sodium 131 L Potassium 3.9 Chloride 95 L Carbon Dioxide 27 Anion Gap 9.0 BUN 9 Creatinine 0.9 Estimated GFR (MDRD) 83 L Glucose 293 H Calcium 8.2 L Troponin I < 0.04 Urine Color Urine Clarity Urine pH Ur Specific [place] Urine Protein Urine Glucose (UA) Urine Ketones Urine Occult Blood Urine Nitrite Urine Bilirubin Urine Urobilinogen Ur Leukocyte Esterase Ur Microscopic Review Urine Culture Comments Serum Ketones NEGATIVE 02/06/18 01:08 WBC RBC Hgb Hct MCV MCH MCHC RDW Plt Count MPV Neut # (Auto) Lymph # (Auto) [place] # (Auto) Eos # (Auto) Baso # (Auto) Absolute Nucleated RBC Nucleated RBC % Sodium Potassium Chloride Carbon Dioxide Anion Gap BUN Creatinine Estimated GFR (MDRD) Glucose Calcium Troponin I Urine Color YELLOW Urine Clarity CLEAR Urine pH 5.5 Ur Specific [place] 1.025 Urine Protein NEGATIVE Urine Glucose (UA) >=1000 H Urine Ketones NEGATIVE Urine Occult Blood NEGATIVE Urine Nitrite NEGATIVE Urine Bilirubin NEGATIVE Urine Urobilinogen 0.2 (NORMAL) Ur Leukocyte Esterase NEGATIVE Ur Microscopic Review NOT INDICATED Urine Culture Comments NOT INDICATED Serum Ketones - Rads (name of study) chest xray Radiology: Prelim report reviewed, See rad report PD MEDICAL DECISION MAKING - ED course Complexity details: reviewed results, re-evaluated patient, considered differential, d/w patient, d/w family Departure - Departure Disposition: 01 Home, Self Care Clinical Impression: Hyperglycemia Upper respiratory tract infection Qualifiers: URI type: unspecified URI Qualified Code(s): J06.9 - Acute upper respiratory infection, unspecified Condition: Good Instructions: ED Hyperglycemia Diabetic, ED URI Viral Comments: Follow up with your primary doctor within 3-5 days if symptoms have not resolved Discharge Date/Time: 02/06/18 02:25
[2018-02-06 00:26] LABS: BASOPHILS # (AUTO) 0.1 10^3/uL (0.0-0.1); BASOPHILS % (AUTO) 0.6 %; EOSINOPHILS # (AUTO) 0.2 10^3/uL (0.0-0.7); EOSINOPHILS % (AUTO) 1.4 %; HGB - HEMOGLOBIN 12.7 g/dL (14.0-18.0); LYMPHOCYTES # (AUTO) 0.5 10^3/uL (1.5-3.5); LYMPHOCYTES % (AUTO) 3.5 %; MEAN CORPUSCULAR HEMOGLOBIN 30.4 pg (27.0-31.0); MEAN CORPUSCULAR HGB CONC 34.3 g/dL (32.0-36.0); MEAN CORPUSCULAR VOLUME 88.8 fL (80.0-94.0); MEAN PLATELET VOLUME 8.6 fL (7.4-11.4); MONOCYTES # (AUTO) 0.8 10^3/uL (0.0-1.0); MONOCYTES % (AUTO) 5.3 %; NEUTROPHILS # (AUTO) 12.7 10^3/uL (1.5-6.6); NEUTROPHILS % (AUTO) 89.2 %; PLT - PLATELET COUNT 190 10^3/uL (130-450); RED BLOOD COUNT 4.17 10^6/uL (4.70-6.10); WHITE BLOOD COUNT 14.2 x10^3/uL (4.8-10.8)
[2018-02-06 00:33] LABS: BUN - BLOOD UREA NITROGEN 9 mg/dL (6-20); CALCIUM 8.2 mg/dL (8.5-10.3); CARBON DIOXIDE - CO2 27 mmol/L (21-32); CHLORIDE 95 mmol/L (101-111); CREATININE 0.9 mg/dL (0.6-1.2); GFR - MDRD 83 (>89); GLUCOSE 293 mg/dL (70-100); SODIUM 131 mmol/L (135-145)
[2018-02-06 00:52] LABS: KETONES, SERUM (ACETEST) NEGATIVE (NEGATIVE)
--- NOTE | 2018-02-06 00:55 | XRAY Report ---
EXAM: CHEST RADIOGRAPHY EXAM DATE: 02/06/2018 12:38 AM. CLINICAL HISTORY: Cough. Chest pain. COMPARISON: 04/23/2017. TECHNIQUE: 2 views. FINDINGS: Lungs/Pleura: Persistent pleural and parenchymal scarring at the right base, otherwise no focal opaci ties evident. No pleural effusion. No pneumothorax. Normal volumes. Mediastinum: Prior CABG. Large heart. Other: No compression fractures. IMPRESSION: 1. No acute abnormalities. 2. Persistent pleural and parenchymal scarring at the right base. 3. Cardiomegaly. [facility] Referring Provider Line: [phone] SITE ID: [id number]
[2018-02-06 01:21] LABS: BILIRUBIN,URINE NEGATIVE (NEGATIVE); GLUCOSE, URINE (UA) >=1000 mg/dL (NEGATIVE); KETONES,URINE (UA) NEGATIVE (NEGATIVE); LEUKOCYTE ESTERASE, URINE NEGATIVE (NEGATIVE); NITRITE,URINE NEGATIVE (NEGATIVE); OCCULT BLOOD,URINE NEGATIVE (NEGATIVE); PH,URINE 5.5 PH (5.0-7.5); PROTEIN,URINE NEGATIVE (NEGATIVE); UROBILINOGEN,URINE 0.2 (NORMAL) E.U./dL (NORMAL)
[2018-02-06 01:32] LABS: CLARITY,URINE CLEAR (CLEAR)
[2018-02-06 02:25] VITALS: BP 109/62
== END 2018-02-06 02:25 | disposition home or self-care (01) ==
LOC: EDUNIT# → ED 23:44
DX: J06.9 Acute upper respiratory infection, unspecified (principal); I45.10 Unspecified right bundle-branch block; I11.0 Hypertensive heart disease with heart failure; I50.9 Heart failure, unspecified; I25.10 Atherosclerotic heart disease of native coronary artery without angina pectoris; I25.2 Old myocardial infarction; E11.9 Type 2 diabetes mellitus without complications; M06.9 Rheumatoid arthritis, unspecified; Z95.5 Presence of coronary angioplasty implant and graft; Z79.82 Long term (current) use of aspirin
CPT/HCPCS: 36415; 71046; 80048; 81001; 81003; 82009; 84484; 85025; 87086; 93005; 99283; 99284

== ENCOUNTER 2018-03-28 07:33 | Outpatient (CLI) | payer MEDICARE, OTHER ==
[2018-03-28 13:42] LABS: HB2 TOTAL 12.1 g/dL; HEMOGLOBIN A1C 0.85 g/dL; HEMOGLOBIN A1C % 8.6 % (4.6-6.2)
[2018-03-28 13:50] LABS: ALBUMIN 3.3 g/dL (3.2-5.5); BILIRUBIN,TOTAL 0.7 mg/dL (0.2-1.0); CALCIUM 8.4 mg/dL (8.5-10.3); CREATININE 0.8 mg/dL (0.6-1.2); TOTAL PROTEIN 6.5 g/dL (6.7-8.2)
== END 2018-03-28 07:34 | disposition home or self-care (01) ==
LOC: LAB.WCP 07:33
PROVIDERS: ATTEND Family Medicine
DX: E11.40 Type 2 diabetes mellitus with diabetic neuropathy, unspecified (principal); I25.10 Atherosclerotic heart disease of native coronary artery without angina pectoris; J84.9 Interstitial pulmonary disease, unspecified
CPT/HCPCS: 36415; 80053; 82043; 83036

== ENCOUNTER 2018-03-31 11:24 | Outpatient (CLI) | payer MEDICARE, OTHER | END 2018-03-31 11:25 | disposition critical access hospital (66) | LOC: EMS 11:24 | PROVIDERS: ATTEND Surgery | DX: R06.02 Shortness of breath (principal); R53.1 Weakness | CPT/HCPCS: A0425; A0429 ==

== ENCOUNTER 2018-03-31 11:46 | Inpatient (IN) | payer MEDICARE, OTHER ==
[2018-03-31] MEDS ORDERED: MAG HYDROX/AL HYDROX/SIMETH 30 ML UDC PO STA (12:07)
[2018-03-31] MEDS ORDERED: LIDOCAINE VISCOUS 2% 15 ML UDC MM STA (12:07)
[2018-03-31] MEDS ORDERED: SODIUM CHLORIDE 0.9% 500 ML IV ONE (12:08)
--- NOTE | 2018-03-31 12:11 | ED Physician Documentation ---
History of Present Illness - Stated complaint Stated Complaint: SOA - Chief complaint Chief Complaint: General - History obtained from History obtained from: Patient - History of Present Illness Timing: Other (This is a gentleman with complicated medical history including 14 cardiac stents, diabetes who presents with 2 days of generalized weakness which got worse over the last couple of days and now today has been so weak he basically Crumpled out of bed on the floor. It is associated with staccato chest pain yesterday and today which is now been constant today but feels more like heartburn and is nonradiating. He has had shortness of breath with a mild dry cough, potentially fevers, nausea and large episode of vomiting but no changes in his bowel movements and no dark or tarry stools. He has some crampy abdominal pain with it. He has been sweating.) Review of Systems Constitutional: reports: Fever, Fatigue, Sweats. denies: Chills Nose: denies: Rhinorrhea / runny nose, Congestion Cardiac: reports: Chest pain / pressure. denies: Palpitations, Pedal edema, Calf pain Respiratory: reports: Dyspnea, Cough GI: reports: Abdominal Pain, Nausea, Vomiting. denies: Constipation, Diarrhea, Hematemesis, Bloody / black stool PD PAST MEDICAL HISTORY - Past Medical History Cardiovascular: Congestive heart failure, Hypertension, Coronary artery disease , [place], Arrhythmia, Valve disorder Respiratory: Shortness of breath, Sleep apnea, CPAP use Endocrine/Autoimmune: Type 2 diabetes GI: GERD, Chronic constipation, Diverticulitis HEENT: Other Psych: None Musculoskeletal: Osteoarthritis, Fibromyalgia, Rheumatoid arthritis Derm: None - Past Surgical History Past Surgical History: Yes General: Other Cardiovascular: Coronary stent, Other - Present Medications Home Medications: Ambulatory Orders Medication Instructions Recorded Confirmed Albuterol 2.5 mg INH Q4H PRN 06/09/13 12/27/17 Amitriptyline [Elavil] 50 mg PO HS 06/09/13 12/27/17 Aspirin Chewable [St Jr 81 mg PO DAILY 06/09/13 12/27/17 Aspirin] HYDROcod/ACETAM 5/325 [Vicodin 1 - 2 ea PO Q6H PRN 06/09/13 12/27/17 5/325] Insulin Glargine,Hum.rec.anlog 35 unit SQ QAM 06/09/13 12/27/17 [Lantus] Metformin HCl [Metformin HCl ER] 500 mg PO BID 06/09/13 12/27/17 Metoprolol Succinate [Toprol Xl] 50 mg PO TID 06/09/13 12/27/17 Mometasone Furoate [Nasonex] 17 gm NS DAILY PRN 06/09/13 12/27/17 Multivitamin [Multi-Vitamin Daily] 1 each PO DAILY 06/09/13 12/27/17 Nitroglycerin [Nitrostat] 0.4 mg SL Q5MIN PRN 06/09/13 12/27/17 clonazePAM [Klonopin] 0.5 mg PO HS 06/09/13 12/27/17 glipiZIDE [Glucotrol] 5 mg PO QAM 06/09/13 12/27/17 Cholecalciferol (Vitamin D3) 1,000 unit PO DAILY 09/11/13 12/27/17 [Vitamin D3] Ascorbic Acid [Vitamin C] 1,000 mg PO DAILY 07/05/15 12/27/17 Ezetimibe [Zetia] 10 mg PO DAILY PM 02/25/16 12/27/17 Atorvastatin Calcium [Lipitor] 80 mg PO DAILY 04/23/17 12/27/17 Clopidogrel [Plavix] 75 mg PO DAILY 04/23/17 12/27/17 Magnesium Oxide 400 mg PO DAILY 04/23/17 12/27/17 Pantoprazole [Protonix] 40 mg PO DAILY 04/23/17 12/27/17 Ranolazine [Ranexa] 500 mg PO BID 04/23/17 12/27/17 amLODIPine [Norvasc] 5 mg PO DAILY 04/23/17 12/27/17 Isosorbide Dinitrate 20 mg PO TID 05/24/17 12/27/17 Gabapentin 600 mg PO Q12H 09/20/17 12/27/17 - Allergies Allergies/Adverse Reactions: Allergies Allergy/AdvReac Type Severity Reaction Status Date / Time amiodarone Allergy Severe Anaphylaxis Verified 03/31/18 11:57 levodopa Allergy Severe Nausea Verified 03/31/18 11:57 venom-honey bee Allergy Severe Edema/Light Verified 03/31/18 11:57 [bee venom (honey bee)] headed moxifloxacin HCl * AdvReac Severe GI upset Verified 03/31/18 11:57 [From Avelox] - Social History Does the pt smoke?: No Smoking Status: Never smoker Does the pt drink ETOH?: No Does the pt have substance abuse?: No - Family History Family history: reports: Non contributory - Immunizations Immunizations are current?: Yes - POLST Patient has POLST: Yes POLST Status: Limited Interventions PD ED PE NORMAL - Vitals Vital signs reviewed: Yes - General General: Alert and oriented X 3, No acute distress - HEENT HEENT: PERRL, EOMI - Neck Neck: Supple, no meningeal sign, No bony TTP, No JVD (Neck veins are flat) - Cardiac Cardiac: Other (Tachycardic with frequent extrasystoles, no murmur) - Respiratory Respiratory: No respiratory distress, Other (Rhonchi at the right base) - Abdomen Abdomen: Normal bowel sounds, Soft, Non tender, Other (Extensive surgical scars) - Back Back: No CVA TTP, No spinal TTP - Derm Derm: Normal color, Warm and dry - Extremities Extremities: No edema, No calf tenderness / cord - Neuro Neuro: Alert and oriented X 3, Normal speech - Psych Psych: Normal mood, Normal affect Results - Vitals Vitals: Vital Signs - 24 hr 03/31/18 03/31/18 11:53 12:09 Temperature 36.8 C Heart Rate 113 H 113 H Respiratory 16 16 Rate Blood Pressure 128/73 128/73 O2 Saturation 94 95 Oxygen O2 Source Room air - EKG (time done) 1157 Rate: Rate (enter#) (102) Rhythm: Sinus tachycardia (frq pacs) [place]: Normal Intervals: RBBB Ischemia: Non specific changes (ST depression especially V1 and V2, compared with the last EKG on chart, February 05, 2018 he has a faster rate now but the ST-T changes are pretty similar.) Computer interpretation: Agree with computer - Labs Labs: Laboratory Tests 03/31/18 03/31/18 03/31/18 12:10 12:10 12:10 WBC 23.2 H RBC 4.00 L Hgb 12.0 L Hct 35.9 L MCV 89.8 MCH 29.9 MCHC 33.3 RDW 14.8 Plt Count 264 MPV 8.5 Neut # (Auto) 21.0 H Lymph # (Auto) 0.7 L Toole # (Auto) 1.4 H Eos # (Auto) 0.0 Baso # (Auto) 0.1 Absolute Nucleated RBC 0.00 Band Neuts % (Manual) Not Reportable Abnorm Lymph % (Manual) Not Reportable Nucleated RBC % 0.0 Neutrophils # (Manual) Not Reportable Lymphocytes # (Manual) Not Reportable Monocytes # (Manual) Not Reportable Eosinophils # (Manual) Not Reportable Basophils # (Manual) Not Reportable Differential Comment MANUAL=AUTO DIFF WBC Morphology 1+ VACUOLATION PT INR D-Dimer Sodium 134 L Potassium 3.9 Chloride 98 L Carbon Dioxide 26 Anion Gap 10.0 BUN 10 Creatinine 0.8 Estimated GFR (MDRD) 95 Glucose 322 H Lactic Acid Calcium 8.9 Total Bilirubin 0.9 AST 17 ALT 17 Alkaline Phosphatase 94 Troponin I < 0.04 Total Protein 7.0 Albumin 3.2 Globulin 3.8 Albumin/Globulin Ratio 0.8 L Lipase 15 L 03/31/18 03/31/18 12:30 13:09 WBC RBC Hgb Hct MCV MCH MCHC RDW Plt Count MPV Neut # (Auto) Lymph # (Auto) Toole # (Auto) Eos # (Auto) Baso # (Auto) Absolute Nucleated RBC Band Neuts % (Manual) Abnorm Lymph % (Manual) Nucleated RBC % Neutrophils # (Manual) Lymphocytes # (Manual) Monocytes # (Manual) Eosinophils # (Manual) Basophils # (Manual) Differential Comment WBC Morphology PT 13.9 H INR 1.2 D-Dimer 201.6 Sodium Potassium Chloride Carbon Dioxide Anion Gap BUN Creatinine Estimated GFR (MDRD) Glucose Lactic Acid 1.2 Calcium Total Bilirubin AST ALT Alkaline Phosphatase Troponin I Total Protein Albumin Globulin Albumin/Globulin Ratio Lipase - Rads (name of study) 1v chest Radiology: EMP read contemporaneously (Right basilar atelectasis or chronic infiltrate and pleural thickening without clear acute disease.) PD MEDICAL DECISION MAKING - ED course ED course: This is a 73-year-old gentleman with multiple medical problems aunts with chest pain, weakness, and probably clinical pneumonia at the right base although this is not completely corroborated on chest x-ray. He does have a significantly elevated white count 23,000 and a negative troponin making an infectious etiology more likely. He was tachycardic, on and off in A. fib. He appeared hypovolemic. He was given IV fluids, Rocephin and Zithromax after blood cultures again for clinical pneumonia. Call the hospitalist for admission at 2: 01 PM. - Sepsis Event Vital Signs: Vital Signs - 24 hr 03/31/18 03/31/18 11:53 12:09 Temperature 36.8 C Heart Rate 113 H 113 H Respiratory 16 16 Rate Blood Pressure 128/73 128/73 O2 Saturation 94 95 Oxygen O2 Source Room air Departure - Departure Disposition: [facility] DC/Xfer Clinical Impression: Chest pain Qualifiers: Chest pain type: unspecified Qualified Code(s): R07.9 - Chest pain, unspecified Pneumonia Qualifiers: Pneumonia type: due to unspecified organism Laterality: right Lung location: lower lobe of lung Qualified Code(s): J18.1 - Lobar pneumonia, unspecified organism Condition: Stable
[2018-03-31 12:19] LABS: BASOPHILS # (AUTO) 0.1 10^3/uL (0.0-0.1); BASOPHILS % (AUTO) 0.5 %; EOSINOPHILS % (AUTO) 0.1 %; LYMPHOCYTES # (AUTO) 0.7 10^3/uL (1.5-3.5); LYMPHOCYTES % (AUTO) 3.1 %; MEAN CORPUSCULAR HEMOGLOBIN 29.9 pg (27.0-31.0); MEAN CORPUSCULAR HGB CONC 33.3 g/dL (32.0-36.0); MEAN CORPUSCULAR VOLUME 89.8 fL (80.0-94.0); MEAN PLATELET VOLUME 8.5 fL (7.4-11.4); MONOCYTES # (AUTO) 1.4 10^3/uL (0.0-1.0); MONOCYTES % (AUTO) 5.9 %; NEUTROPHILS % (AUTO) 90.4 %; PLT - PLATELET COUNT 264 10^3/uL (130-450); RED CELL DISTRIBUTION WIDTH 14.8 % (12.0-15.0); WHITE BLOOD COUNT 23.2 x10^3/uL (4.8-10.8)
[2018-03-31 12:45] LABS: ALBUMIN 3.2 g/dL (3.2-5.5); ALBUMIN/GLOBULIN RATIO 0.8 (1.0-2.2); BILIRUBIN,TOTAL 0.9 mg/dL (0.2-1.0); CALCIUM 8.9 mg/dL (8.5-10.3); CREATININE 0.8 mg/dL (0.6-1.2)
[2018-03-31 12:49] LABS: INR 1.2 (0.8-1.2); PT - PROTHROMBIN TIME 13.9 secs (9.9-12.6)
[2018-03-31 12:56] LABS: D-DIMER 201.6 ng/mL (200.0-255.0)
[2018-03-31 13:02] LABS: DIFFERENTIAL COMMENT MANUAL=AUTO DIFF
--- NOTE | 2018-03-31 13:56 | XRAY Report ---
Procedure Date: 03/31/2018 Accession Number: [id number] / [id number] Procedure: XR - Chest 1 View X-Ray CPT Code: 20863 FULL RESULT: EXAM: CHEST RADIOGRAPHY EXAM DATE: 03/31/2018 12:15 PM. CLINICAL HISTORY: Chest pain. COMPARISON: 02/06/2018. TECHNIQUE: 1 view. FINDINGS: Lungs/Pleura: Minimal right pleural fluid or thickening, as before. No pneumothorax. Minimal wispy lateral bibasilar scarring or atelectasis, as before. No new airspace opacities. No interstitial abnormality. Mediastinum: Heart size normal. Prior CABG. Other: None. IMPRESSION: 1. Heart size normal. Prior CABG. 2. No new air space opacities. Minimal scarring or atelectasis at the lateral right lung base, as before. Minimal right pleural fluid or thickening, as before. RADIA
[2018-03-31] MEDS ORDERED: AZITHROMYCIN INJ 500 MG in SODIUM CHLORIDE 0.9% 250 ML IV STA (14:00)
[2018-03-31] MEDS ORDERED: cefTRIAXone 2 GM in SODIUM CHLORIDE 0.9% MINIBAG 100 ML IV STA (14:00)
[2018-03-31] MEDS ORDERED: PROCHLORPERAZINE 10 MG/2 ML VIAL IVP PRN ×2 (14:11→16:05)
[2018-03-31] MEDS ORDERED: SODIUM CHLORIDE FLUSH 0.9% 10 ML SYRINGE IVP PRN ×2 (14:11→16:05)
[2018-03-31] MEDS ORDERED: ONDANSETRON 4 MG/2 ML VIAL IVP PRN ×2 (14:11→16:05)
[2018-03-31] MEDS ORDERED: oxyCODONE 5 MG TABLET PO PRN (14:11)
[2018-03-31] MEDS ORDERED: ACETAMINOPHEN 325 MG TABLET PO PRN ×2 (14:11→16:05)
[2018-03-31] MEDS ORDERED: ONDANSETRON ODT 4 MG TABLET TL PRN ×2 (14:11→16:05)
[2018-03-31] MEDS ORDERED: NON FORMULARY MED (Gabapentin [Gabapentin] 600 MG) PO SCH (14:15)
[2018-03-31] MEDS ORDERED: NITROGLYCERIN SL 0.4 MG TABLET SL PRN ×2 (14:15→16:05)
[2018-03-31] MEDS ORDERED: SODIUM CHLORIDE 0.9% 1,000 ML IV SCH (15:00)
[2018-03-31 15:01] LABS: HB2 TOTAL 12.6 g/dL; HEMOGLOBIN A1C 0.9 g/dL; HEMOGLOBIN A1C % 8.7 % (4.6-6.2)
[2018-03-31] MEDS ORDERED: INSULIN ASPART 300 UNIT/3 ML PEN SUBQ SCH (17:00)
[2018-03-31] MEDS ORDERED: SODIUM CHLORIDE FLUSH 0.9% 10 ML SYRINGE IVP SCH (17:00)
[2018-03-31] MEDS: SODIUM CHLORIDE 0.9% 1,000 ML IV SCH ×2 (17:33→17:35)
[2018-03-31] MEDS: INSULIN ASPART 300 UNIT/3 ML PEN SUBQ SCH ×2 (17:34→21:07)
[2018-03-31] MEDS: SODIUM CHLORIDE FLUSH 0.9% 10 ML SYRINGE IVP SCH (17:35)
[2018-03-31] MEDS: oxyCODONE 5 MG TABLET PO PRN (17:39)
--- NOTE | 2018-03-31 19:10 | HISTORY & PHYSICAL EXAMINATION ---
Chief Complaint - Chief Complaint Chief Complaint: unable to get up after sliding to ground History of Present Illness - Admitted From Admitted From:: HOme/ER - History Obtained From [facility] History obtained from: Dr. Knowles, and records Exam Limitations: encephalopathy - History of Present Illness HPI Comment/Other: He started feeling generalized malaise and generalized achiness with weakness on 03/29. He thinks he was having fevers accompanied by severe sweats, fatigue, and generalized achiness. He had 24 hours of emesis and then he felt better. But denied any rigors. He saw Dr. Morales on 03/30 and they both agreed it was most likely food poisoning of some type. Later that day he started having tickle in his throat with a cough. But he denied sore throat, rhinorrhea, ear pain. He started getting mildly short of breath, and then 03/30 started having brief episodes of sharp stabbing chest pain. Today those are gone but now he feels like he is having a burning steady ache in his central chest. It is nonradiating. It happens at rest. He has been sweating off and on so he cannot tell if he is diaphoretic from the chest pain or not. He has been nauseated off and on but he cannot tell of his from the chest pain. Today, he tried to get out of bed because the phone was ringing at 5:30 am and it woke him up. He was so weak that he just slid to the floor. And he cannot get up. Crawled on his hands and knees to the bathroom and to call his grandson who lives with him. He was brought to the ER via ambulance. He was evaluated by Dr. Morales. This gentleman has a history of numerous cardiac stents. The last 2 stents were placed after he had a cardiac arrest in 2017. He has 14 total. On examination he was afebrile to 36.8 but tachycardic at 113. Normotensive at 128/73 with 94% oxygen saturation. He was alert, no respiratory distress but had rhonchi at the right lung base. A normal abdominal exam. His troponin was less than 0.04. Random glucose was 322. White cell count with now 23.2 thousand. And chest x-ray confirms a right lower lobe infiltrate. History - Past Medical History Cardiovascular: reports: Congestive heart failure, Hypertension, Coronary artery disease (10 stents with bypass surgery in the past. He then had a chest pain in October 2016 and sent to [facility]. 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 ABVD chemotherapy from January 1993 through July 1993. Complete response. Iron deficiency anemia diagnosed March 2012. On intermittent INFeD. EGD and colonoscopy showed no source of bleeding July 2015. Low reticulocyte count. Bone marrow biopsy done October 2015 negative for cancer or lymphoma and has generalized low cellularity. - Past Surgical History General: reports: Other Cardiovascular: reports: Coronary stent, Other - Family & Social History Family History Comment/Other: Dad at 59 of stroke, he was an alcoholic. Mom at 62 of lung cancer. 1 half brother is alive. 3 kids: daughter of enlarged heart and failure 1.5 years ago. Other 2 sons are healthy. Living arrangement: At home Living Situation: With spouse/s.o., With family Social History Notes: He was born in [place] but moved to [place] when his dad went back to his family. Lived in [place] all of his life until he enrolled into the [employer] when he graduated from high school. 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 Did that until senior living when he moved to [facility]. [place] When his daughter , they are taking care of their grandson. The grandson has Tourette's, developmental delay. He still considers himself independent with his activities of daily living, drives a car , and slowly gets all of his work done around the house. No history of alcohol abuse. No recreational substance abuse. Smoked in the past. - Substance History Use: Uses substance without health or social issues: NONE Abuse: Recurrent use of substance despite neg consequences: NONE Dependence: Experiences withdrawal or developed tolerances: NONE - POLST Patient has POLST: Yes POLST Status: Full Code (he states he has a POLST here but not in our records.) Meds/Allgy - Home Medications Home Medications: Ambulatory Orders Medication Instructions Recorded Confirmed Amitriptyline [Elavil] 25 mg PO HS 06/09/13 03/31/18 HYDROcod/ACETAM 5/325 [Vicodin 1 tab PO QID PRN 06/09/13 03/31/18 5/325] Insulin Glargine,Hum.rec.anlog 40 unit SQ QPM 06/09/13 03/31/18 [Lantus] Metformin HCl [Metformin HCl ER] 1,000 mg PO BID 06/09/13 03/31/18 Mometasone Furoate [Nasonex] 2 spray KILLIAN BID 06/09/13 03/31/18 Multivitamin [Multi-Vitamin Daily] 1 each PO DAILY 06/09/13 03/31/18 Nitroglycerin [Nitrostat] 0.4 mg SL Q5MIN PRN 06/09/13 03/31/18 clonazePAM [Klonopin] 0.5 mg PO HS 06/09/13 03/31/18 Cholecalciferol (Vitamin D3) 1,000 unit PO DAILY 09/11/13 03/31/18 [Vitamin D3] Ascorbic Acid [Vitamin C] 1,000 mg PO DAILY 07/05/15 03/31/18 Ezetimibe [Zetia] 10 mg PO DAILY PM 02/25/16 03/31/18 Atorvastatin Calcium [Lipitor] 80 mg PO QPM 04/23/17 03/31/18 Clopidogrel [Plavix] 75 mg PO DAILY 04/23/17 03/31/18 Pantoprazole [Protonix] 40 mg PO QDAC 04/23/17 03/31/18 Ranolazine [Ranexa] 500 mg PO BID 04/23/17 03/31/18 amLODIPine [Norvasc] 5 mg PO QPM 04/23/17 03/31/18 Isosorbide Dinitrate 20 mg PO BID 05/24/17 03/31/18 Albuterol Sulfate [Proair Hfa 2 puffs INH Q4H PRN 03/31/18 03/31/18 Inhaler] Aspirin [Aspirin EC] 81 mg PO DAILY 03/31/18 03/31/18 Furosemide [Furosemide] 20 mg PO DAILY 03/31/18 03/31/18 Gabapentin [Gabapentin] 300 mg PO BID 03/31/18 03/31/18 Glipizide [Glipizide ER] 5 mg PO DAILY 03/31/18 03/31/18 Gluc/Devin-MSM#1/Vit C/Blane/Bor 1 each PO BID 03/31/18 03/31/18 [[id number]-GCK Complex Cplt] Magnesium Oxide [Magnesium] 500 mg PO DAILY 03/31/18 03/31/18 Metoprolol Tartrate [Lopressor] 50 mg PO TID 03/31/18 03/31/18 raNITIdine [Zantac] 150 mg PO QPM 03/31/18 03/31/18 - Allergies Allergies/Adverse Reactions: Allergies Allergy/AdvReac Type Severity Reaction Status Date / Time amiodarone Allergy Severe Anaphylaxis Verified 03/31/18 11:57 levodopa Allergy Severe Nausea Verified 03/31/18 11:57 venom-honey bee Allergy Severe Edema/Light Verified 03/31/18 11:57 [bee venom (honey bee)] headed moxifloxacin HCl * AdvReac Severe GI upset Verified 03/31/18 11:57 [From Avelox] Review of Systems - Constitutional Constitutional: reports: Fatigue, Fever, Malaise, Weakness, Poor appetite - Eyes Eyes: denies: Pain, Irritation, Amaurosis, Blurred vision - Ears, Nose & Throat Ears, Nose & Throat: denies: Ear pain, Hearing loss, Hearing aids, Tinnitus, Nasal obstruction, Nasal congestion, Sore throat, Hoarseness - Cardiovascular Cariovascular: reports: Irregular heart rate, Palpitations, Chest pain, Lightheadedness, Exertional dyspnea (Constant. Not new.) - Respiratory Respiratory: reports: Cough (Mild, no sputum production), SOB with exertion. denies: Wheezing, Snoring, Hemoptysis, Orthopnea - Gastrointestinal Gastrointestinal: reports: Nausea. denies: Black stools, Bloody stools, Vomiting, Bile emesis - Genitourinary Genitourinary: denies: Dysuria, Frequency, Urgency, Hematuria - Musculoskeletal Musculoskeletal: reports: Muscle pain, Muscle aches, Muscle weakness. denies: Stiffness, Limited range of motion, Gout, Joint pain - Integumentary Integumentary: denies: Rash, Pruritis, Lesions, Dryness - Neurological Neurological: reports: General weakness, Numbness (Chronic from peripheral neuropathy). denies: Focal weakness, Headache, Dizziness - Psychiatric Psychiatric: denies: Depression, Anxiety, Suicidal - Endocrine Endocrine: denies: Polyuria, Polydypsia - Hematologic/Lymphatic Hematologic/Lymphatic: reports: Anemia, Bruising. denies: Petechiae, Blood clots Exam - Vital Signs Reviewed Vital Signs: Yes Vital Signs: Vital Signs x48h Temp Pulse Pulse Resp BP BP Pulse Ox 03/31/18 15:50 36.9 C 99 20 138/64 H 96 03/31/18 15:03 98 20 144/63 H 99 03/31/18 14:19 85 17 140/77 H 97 - Physical Exam General Appearance: positive: Alert, Mild distress (from cough and congestion and fatigue, sleepy) Eyes Bilateral: positive: PERRL, EOMI ENT: positive: Pharynx nml, Other (hoarse voice, nasal tone of voice) Neck: positive: No JVD, Carotid bruit. negative: Stiff neck Respiratory: positive: Chest non-tender, No respiratory distress, Rales, Rhonchi , Other (congested cough). negative: Wheezes Cardiovascular: positive: Regular rate & rhythm, Systolic murmur. negative: Gallop/S4, Friction rub Peripheral Pulses: positive: 0 Abdomen: positive: Non-tender (5 sec capillary refill), Nml bowel sounds, No distention. negative: Guarding, Rebound Skin: positive: Warm, Dry Extremities: positive: Full ROM Neurologic/Psychiatric: positive: Oriented x3, CN's nml (2-12), Motor nml, Other (sleepy, slow to respond) Conclusion/Plan - Problem List (1) Pneumonia involving right lung Conclusion/Plan: He clinically presents as an infection with an elevated white cell count, days of fever, cough, and positive findings on lung exam. Chest x-ray shows the same chronic changes with no new opacity. Nevertheless will be admitted and treated as pneumonia. Plan: Admit inpatient status Blood cultures Sputum cultures Treatment with Rocephin and azithromycin and adjust on the basis of culture results Qualifiers: Pneumonia type: due to unspecified organism (2) Chest pain Conclusion/Plan: It sounds atypical. But in a gentleman who has known cardiac disease with a cardiac arrest a year ago, it would be prudent to do serial cardiac enzymes to rule out UT. He is already on aspirin, statin, beta-steven and those will be continued. Qualifiers: Chest pain type: unspecified Qualified Code(s): R07.9 - Chest pain, unspecified (3) Type II diabetes mellitus with complication, uncontrolled Conclusion/Plan: His random glucose of over 300 indicates uncontrolled diabetes. He does not describe noncompliance. He says he takes his medications. He does admit to not checking sugars very frequently. We will resume some of his oral medications. Check A1c. Start Lantus and sliding scale insulin. 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 Resume usual medications Qualifiers: Hypertension type: essential hypertension Qualified Code(s): I10 - Essential (primary) hypertension (5) Generalized weakness Conclusion/Plan: Associated with an acute episode of illness. He had vomiting for 24 hours earlier this week, poor p.o. intake, elevated glucose. Although his BUN and creatinine are normal, I suspect some elements of dehydration and orthostasis. He will get IV fluids. Reassess in 24 hours. If still week we will ask for physical therapy evaluation. - Lab Results Lab results reviewed: Yes Fish Bones: 03/31/18 12:10 03/31/18 12:10 - Diagnostic Imaging Results Diagnostic Imaging Results: positive: Final report reviewed Diagnostic Imaging Results Comments: Chest Xray IMPRESSION: 1. Heart size normal. Prior CABG. 2. No new air space opacities. Minimal scarring or atelectasis at the lateral right lung base, as before. Minimal right pleural fluid or thickening, as before. - EKG Results EKG Interpreted Independently: No EKG Comparison: Unchanged from prior EKG (NSR. PAC's) Core Measures - Anticipated LOS I expect patient to be DC'd or transferred within 96 hours.: Yes - DVT/VTE - Prophylaxis VTE/DVT Device ordered at admit?: Yes
[2018-03-31] MEDS ORDERED: RANOLAZINE 500 MG PO SCH (21:00)
[2018-03-31] MEDS ORDERED: AMITRIPTYLINE 25 MG TABLET PO SCH (21:00)
[2018-03-31] MEDS ORDERED: clonazePAM 0.5 MG TABLET PO SCH (21:00)
[2018-03-31] MEDS ORDERED: INSULIN GLARGINE 300 UNIT/3 ML PEN SUBQ SCH (21:00)
[2018-03-31] MEDS: ATORVASTATIN 40 MG TABLET PO SCH (21:02)
[2018-03-31] MEDS: amLODIPine 5 MG TABLET PO SCH (21:03)
[2018-03-31] MEDS: EZETIMIBE 10 MG TABLET PO SCH (21:04)
[2018-03-31] MEDS: METOPROLOL TARTRATE 50 MG TABLET PO SCH (21:04)
[2018-03-31] MEDS: AMITRIPTYLINE 25 MG TABLET PO SCH (21:04)
[2018-03-31] MEDS: GABAPENTIN 300 MG CAPSULE PO SCH (21:04)
[2018-03-31] MEDS: clonazePAM 0.5 MG TABLET PO SCH (21:05)
[2018-03-31] MEDS: Ranolazine [Ranexa] 500 MG PO SCH (21:05)
[2018-03-31] MEDS: ISOSORBIDE DINITRATE 10 MG TABLET PO SCH (21:06)
[2018-03-31] MEDS ORDERED: ISOSORBIDE DINITRATE 20 MG PO SCH (22:00)
[2018-03-31] MEDS ORDERED: METOPROLOL SUCCINATE 50 MG TABLET PO SCH (22:00)
[2018-04-01] MEDS: SODIUM CHLORIDE FLUSH 0.9% 10 ML SYRINGE IVP SCH ×4 (02:10→23:57)
[2018-04-01] MEDS: SODIUM CHLORIDE 0.9% 1,000 ML IV SCH ×2 (02:32→12:56)
[2018-04-01] MEDS: HYDROcod/ACETAM 5/325 MG TABLET PO PRN ×2 (03:14→19:18)
[2018-04-01] MEDS: METOPROLOL TARTRATE 50 MG TABLET PO SCH ×3 (06:37→21:04)
[2018-04-01] MEDS: PANTOPRAZOLE 40 MG TABLET PO SCH (06:37)
[2018-04-01] MEDS ORDERED: INSULIN GLARGINE 300 UNIT/3 ML PEN SUBQ SCH (07:00)
[2018-04-01] MEDS: POLYETHYLENE GLYCOL 3350 17 GM PACKET PO SCH (08:07)
[2018-04-01] MEDS: CLOPIDOGREL 75 MG TABLET PO SCH (08:07)
[2018-04-01] MEDS: ASPIRIN CHEW 81 MG TABLET PO SCH (08:08)
[2018-04-01] MEDS: MAGNESIUM OXIDE 400 MG TABLET PO SCH (08:08)
[2018-04-01] MEDS: INSULIN ASPART 300 UNIT/3 ML PEN SUBQ SCH ×4 (08:11→21:06)
[2018-04-01] MEDS: AZITHROMYCIN INJ 500 MG in SODIUM CHLORIDE 0.9% 250 ML IV SCH (08:18)
[2018-04-01] MEDS: ISOSORBIDE DINITRATE 10 MG TABLET PO SCH ×2 (08:21→21:05)
[2018-04-01] MEDS: Ranolazine [Ranexa] 500 MG PO SCH ×2 (08:21→21:06)
[2018-04-01] MEDS: ENOXAPARIN 40 MG/0.4 ML SYRINGE SUBQ SCH (08:24)
[2018-04-01] MEDS ORDERED: MAGNESIUM OXIDE 400 MG TABLET PO SCH (09:00)
[2018-04-01] MEDS ORDERED: amLODIPine 5 MG TABLET PO SCH (09:00)
[2018-04-01] MEDS ORDERED: ENOXAPARIN 40 MG/0.4 ML SYRINGE SUBQ SCH (09:00)
[2018-04-01] MEDS ORDERED: ASPIRIN CHEW 81 MG TABLET PO SCH (09:00)
[2018-04-01] MEDS ORDERED: PANTOPRAZOLE 40 MG TABLET PO SCH (09:00)
[2018-04-01] MEDS ORDERED: ATORVASTATIN CALCIUM 80 MG PO SCH (09:00)
[2018-04-01] MEDS ORDERED: POLYETHYLENE GLYCOL 3350 17 GM PACKET PO SCH (09:00)
[2018-04-01] MEDS ORDERED: CLOPIDOGREL 75 MG TABLET PO SCH (09:00)
[2018-04-01] MEDS ORDERED: AZITHROMYCIN INJ 500 MG in SODIUM CHLORIDE 0.9% 250 ML IV SCH (09:00)
[2018-04-01] MEDS ORDERED: cefTRIAXone 2 GM in SODIUM CHLORIDE 0.9% MINIBAG 100 ML IV SCH (09:00)
[2018-04-01] MEDS: cefTRIAXone 2 GM in SODIUM CHLORIDE 0.9% MINIBAG 100 ML IV SCH (09:43)
--- NOTE | 2018-04-01 14:56 | PROVIDER PROGRESS NOTE ---
Subjective - Prog Note Date Prog Note Date: 04/01/18 Prog Note Time: 14:54 - Subjective Pt reports feeling: Improved Subjective: He has been able to get up to go to the bathroom. He feels like the escort that I have ordered is not necessary. I explained to him that he fell getting out of bed, and I just wanted to make sure he can get to the bathroom and back without falling in our hospital. He says that he is eating better now, the fevers are gone. The generalized aches are gone. His cough is now looser and more frequent and is bringing up phlegm that he did not before. No hemoptysis. The chest pain that was central and burning is completely resolved since last night. Current Medications - Current Medications Current Medications: Active Medications Acetaminophen (Tylenol) 650 mg PO Q4HR PRN PRN Reason: Pain 1 to 4 Last Admin: 03/31/18 17:39 Dose: 650 mg Hydrocodone Bitart/Acetaminophen ([place] 5/325) 1 tab PO QID PRN PRN Reason: PAIN Last Admin: 04/01/18 03:14 Dose: 1 tab Amitriptyline HCl (Elavil) 25 mg PO HS PENDING SALE TO [facility] Last Admin: 03/31/18 21:04 Dose: 25 mg Amlodipine Besylate (Norvasc) 5 mg PO QPM PENDING SALE TO [facility] Last Admin: 03/31/18 21:03 Dose: 5 mg Aspirin (St Jr Aspirin) 81 mg PO DAILY PENDING SALE TO [facility] Last Admin: 04/01/18 08:08 Dose: 81 mg Atorvastatin Calcium (Lipitor) 80 mg PO QPM PENDING SALE TO [facility] Last Admin: 03/31/18 21:02 Dose: 80 mg Clonazepam (Klonopin) 0.5 mg PO HS PENDING SALE TO [facility] Last Admin: 03/31/18 21:05 Dose: 0.5 mg Clopidogrel Bisulfate (Plavix) 75 mg PO DAILY PENDING SALE TO [facility] Last Admin: 04/01/18 08:07 Dose: 75 mg Ezetimibe (Zetia) 10 mg PO QPM PENDING SALE TO [facility] Last Admin: 03/31/18 21:04 Dose: 10 mg Enoxaparin Sodium (Lovenox) 40 mg SUBQ DAILY PENDING SALE TO [facility] Last Admin: 04/01/18 08:24 Dose: 40 mg Gabapentin (Neurontin) 300 mg PO QPM PENDING SALE TO [facility] Last Admin: 03/31/18 21:04 Dose: 300 mg Sodium Chloride (Normal Saline 0.9%) 1,000 mls @ 100 mls/hr IV .Q10H PENDING SALE TO [facility] Last Admin: 04/01/18 12:56 Dose: 100 mls/hr Azithromycin 500 mg/ Sodium (Chloride) 250 mls @ 250 mls/hr IV DAILY PENDING SALE TO [facility] Last Infusion: 04/01/18 09:18 Dose: Infused Ceftriaxone Sodium 2 gm/ (Sodium Chloride) 100 mls @ 200 mls/hr IV DAILY PENDING SALE TO [facility] Last Infusion: 04/01/18 10:15 Dose: Infused Insulin Aspart (Novolog) 2 - 10 unit SUBQ 0800,1200,1700,2100 PENDING SALE TO [facility] PRN Reason: Protocol Last Admin: 04/01/18 12:56 Dose: 6 unit Insulin Glargine (Lantus Solostar) 40 unit SUBQ QPM PENDING SALE TO [facility] Last Admin: 03/31/18 21:06 Dose: 40 unit Isosorbide Dinitrate (Isordil) 20 mg PO BID PENDING SALE TO [facility] Last Admin: 04/01/18 08:21 Dose: 20 mg Magnesium Oxide (Mag Ox) 400 mg PO DAILYWM PENDING SALE TO [facility] Last Admin: 04/01/18 08:08 Dose: 400 mg Metoprolol Tartrate (Lopressor) 50 mg PO TID PENDING SALE TO [facility] Last Admin: 04/01/18 14:03 Dose: 50 mg Nitroglycerin (Nitrostat) 0.4 mg SL Q5MIN PRN PRN Reason: Chest Pain Ondansetron HCl (Zofran Inj) 4 mg IVP Q6HR PRN PRN Reason: Nausea / Vomiting Ondansetron HCl (Zofran Odt) 4 mg TL Q6HR PRN PRN Reason: Nausea / Vomiting Oxycodone HCl (Roxicodone) 5 mg PO Q4HR PRN PRN Reason: Pain 5 to 7 Last Admin: 03/31/18 17:39 Dose: 5 mg Pantoprazole Sodium (Protonix) 40 mg PO QDAC PENDING SALE TO [facility] Last Admin: 04/01/18 06:37 Dose: 40 mg Ranolazine [Ranexa] (500 Mg) 1 each PO BID PENDING SALE TO [facility] Last Admin: 04/01/18 08:21 Dose: 1 each Polyethylene Glycol (Miralax) 17 gm PO DAILY PENDING SALE TO [facility] Last Admin: 04/01/18 08:07 Dose: 17 gm Prochlorperazine Edisylate (Compazine Inj) 10 mg IVP Q6HR PRN PRN Reason: Nausea / Vomiting Sodium Chloride (Normal Saline Flush 0.9%) 10 ml IVP PRN PRN PRN Reason: NEEDED PER PROVIDER ORDERS Sodium Chloride (Normal Saline Flush 0.9%) 10 ml IVP 0100,0900,1700 TERRA Last Admin: 04/01/18 13:31 Dose: Not Given Amitriptyline [Elavil] 25 mg PO HS 06/09/13 HYDROcod/ACETAM 5/325 [Vicodin 5/325] 1 tab PO QID PRN 06/09/13 Insulin Glargine,Hum.rec.anlog [Lantus] 40 unit SQ QPM 06/09/13 Metformin HCl [Metformin HCl ER] 1,000 mg PO BID 06/09/13 Mometasone Furoate [Nasonex] 2 spray KILLIAN BID 06/09/13 Multivitamin [Multi-Vitamin Daily] 1 each PO DAILY 06/09/13 Nitroglycerin [Nitrostat] 0.4 mg SL Q5MIN PRN 06/09/13 clonazePAM [Klonopin] 0.5 mg PO HS 06/09/13 Cholecalciferol (Vitamin D3) [Vitamin D3] 1,000 unit PO DAILY 09/11/13 Ascorbic Acid [Vitamin C] 1,000 mg PO DAILY 07/05/15 Ezetimibe [Zetia] 10 mg PO DAILY PM 02/25/16 Atorvastatin Calcium [Lipitor] 80 mg PO QPM 04/23/17 Clopidogrel [Plavix] 75 mg PO DAILY 04/23/17 Pantoprazole [Protonix] 40 mg PO QDAC 04/23/17 Ranolazine [Ranexa] 500 mg PO BID 04/23/17 amLODIPine [Norvasc] 5 mg PO QPM 04/23/17 Isosorbide Dinitrate 20 mg PO BID 05/24/17 Albuterol Sulfate [Proair Hfa Inhaler] 2 puffs INH Q4H PRN 03/31/18 Aspirin [Aspirin EC] 81 mg PO DAILY 03/31/18 Furosemide [Furosemide] 20 mg PO DAILY 03/31/18 Gabapentin [Gabapentin] 300 mg PO BID 03/31/18 Glipizide [Glipizide ER] 5 mg PO DAILY 03/31/18 Gluc/Devin-MSM#1/Vit C/Blane/Bor [Bxjqorx-Tjpzy-EOE Complex Cplt] 1 each PO BID Magnesium Oxide [Magnesium] 500 mg PO DAILY 03/31/18 Metoprolol Tartrate [Lopressor] 50 mg PO TID 03/31/18 raNITIdine [Zantac] 150 mg PO QPM 03/31/18 Objective - Vital Signs/Intake & Output Reviewed Vital Signs: Yes Vital Signs: Vital Signs x48h Temp Pulse Resp BP BP Pulse Ox 04/01/18 14:03 128/67 04/01/18 10:38 36.5 C 67 16 109/56 L 96 Intake & Output: Intake & Output 03/29/18 03/30/18 03/31/18 04/01/18 23:59 23:59 23:59 23:59 Intake Total 313.413 6583 Balance 657.155 6848 - Objective General Appearance: positive: No acute distress, Alert (Yesterday he was sleepy , slow to respond, today completely normal, smiling and interactive) Eyes Bilateral: positive: PERRL, EOMI ENT: positive: Other (Still with hoarse voice, nasal tone of voice) Neck: positive: No JVD, Carotid bruit. negative: Stiff neck Respiratory: positive: Chest non-tender, No respiratory distress, Rales, Rhonchi (Rhonchi or looser and more wet in the right mid lung.) Cardiovascular: negative: Systolic murmur, Gallop/S4, Friction rub Skin: positive: Warm, Dry Extremities: positive: Full ROM, No pedal edema Neurologic/Psychiatric: positive: Oriented x3, CN's nml (2-12), Motor nml - Lab Results Fish Bones: 03/31/18 12:10 03/31/18 12:10 ABX Reporting Has patient been on IV antibiotics over the past 48 hours?: Yes Assessment/Plan - Problem List (1) Pneumonia involving right lung Impression: He clinically presents as an infection with an elevated white cell count, days of fever, cough, and positive findings on lung exam. Chest x-ray shows the same chronic changes with no new opacity. Nevertheless will be admitted and treated as pneumonia. Plan: Admit inpatient status Blood cultures are negative at 24 hours Sputum cultures have been ordered but not collected Treatment with Rocephin and azithromycin Day #2 and adjust on the basis of culture results He is improved in the last 24 hours. Much stronger, less weak. Anticipate discharge on day 3 or 4 depending on how much he improves tomorrow. Stop IVF for hydration. Qualifiers: Pneumonia type: due to unspecified organism (2) Chest pain Conclusion/Plan: It sounds atypical. But in a gentleman who has known cardiac disease with a cardiac arrest a year ago, it would be prudent to do serial cardiac enzymes to rule out MA. He is already on aspirin, statin, beta-steven and those will be continued. Repeat labs ordered now since I did not order them last night. Qualifiers: Chest pain type: unspecified Qualified Code(s): R07.9 - Chest pain, unspecified (3) Type II diabetes mellitus with complication, uncontrolled Conclusion/Plan: His random glucose of over 300 indicates uncontrolled diabetes. He does not describe noncompliance. He says he takes his medications. He does admit to not checking sugars very frequently. We will resume some of his oral medications. Check A1c. Start Lantus and sliding scale insulin. With the hypoglycemia. I have stopped his glyburide. 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 insulin use: with senior care use Qualified Code( s): E11.8 - Type 2 diabetes mellitus with unspecified complications; E11.65 - Type 2 diabetes mellitus with hyperglycemia; E11.65 - Type 2 diabetes mellitus with hyperglycemia; E11.65 - Type 2 diabetes mellitus with hyperglycemia; E11.65 - Type 2 diabetes mellitus with hyperglycemia; Z79.4 - long term acute care registered nurse (current ) use of insulin; Z79.4 - long term acute care registered nurse (current) use of insulin; Z79.4 - long term acute care registered nurse (current) use of insulin; Z79.4 - long term acute care registered nurse (current) use of insulin (4) Hypertension Conclusion/Plan: Currently at goal. Resume usual medications Qualifiers: Hypertension type: essential hypertension Qualified Code(s): I10 - Essential (primary) hypertension (5) Generalized weakness Conclusion/Plan: Associated with an acute episode of illness. He had vomiting for 24 hours earlier this week, poor p.o. intake, elevated glucose. Although his BUN and creatinine are normal, I suspect some elements of dehydration and orthostasis. He will get IV fluids. Reassess in 24 hours. If still week we will ask for physical therapy evaluation.He is not weak anymore so hold of on PT and will not need PT at home. Qualifiers: Pneumonia type: due to unspecified organism (2) Chest pain Qualifiers: Chest pain type: unspecified Qualified Code(s): R07.9 - Chest pain, unspecified (3) Type II diabetes mellitus with complication, uncontrolled Qualifiers: Diabetes mellitus senior care insulin use: with termite control technician use Qualified Code( s): E11.8 - Type 2 diabetes mellitus with unspecified complications; E11.65 - Type 2 diabetes mellitus with hyperglycemia; E11.65 - Type 2 diabetes mellitus with hyperglycemia; E11.65 - Type 2 diabetes mellitus with hyperglycemia; E11.65 - Type 2 diabetes mellitus with hyperglycemia; Z79.4 - USP (current ) use of insulin; Z79.4 - USP (current) use of insulin; Z79.4 - USP (current) use of insulin; Z79.4 - USP (current) use of insulin (4) Hypertension Qualifiers: Hypertension type: essential hypertension Qualified Code(s): I10 - Essential (primary) hypertension
[2018-04-01 15:43] LABS: CALCIUM 8.3 mg/dL (8.5-10.3); CREATININE 0.8 mg/dL (0.6-1.2)
[2018-04-01 15:50] LABS: BASOPHILS % (AUTO) 0.4 %; EOSINOPHILS # (AUTO) 0.1 10^3/uL (0.0-0.7); EOSINOPHILS % (AUTO) 1.6 %; HGB - HEMOGLOBIN 11.1 g/dL (14.0-18.0); LYMPHOCYTES # (AUTO) 0.8 10^3/uL (1.5-3.5); LYMPHOCYTES % (AUTO) 9.8 %; MEAN CORPUSCULAR HEMOGLOBIN 30.3 pg (27.0-31.0); MEAN CORPUSCULAR VOLUME 91.7 fL (80.0-94.0); MEAN PLATELET VOLUME 7.9 fL (7.4-11.4); MONOCYTES # (AUTO) 0.6 10^3/uL (0.0-1.0); MONOCYTES % (AUTO) 7.5 %; NEUTROPHILS # (AUTO) 6.7 10^3/uL (1.5-6.6); NEUTROPHILS % (AUTO) 80.7 %; PLT - PLATELET COUNT 257 10^3/uL (130-450); RED BLOOD COUNT 3.65 10^6/uL (4.70-6.10); RED CELL DISTRIBUTION WIDTH 14.7 % (12.0-15.0); WHITE BLOOD COUNT 8.2 x10^3/uL (4.8-10.8)
[2018-04-01] MEDS: ATORVASTATIN 40 MG TABLET PO SCH (21:03)
[2018-04-01] MEDS: GABAPENTIN 300 MG CAPSULE PO SCH (21:04)
[2018-04-01] MEDS: EZETIMIBE 10 MG TABLET PO SCH (21:06)
[2018-04-01] MEDS: AMITRIPTYLINE 25 MG TABLET PO SCH (21:06)
[2018-04-01] MEDS: clonazePAM 0.5 MG TABLET PO SCH (21:06)
[2018-04-01] MEDS: amLODIPine 5 MG TABLET PO SCH (21:06)
[2018-04-01] MEDS: oxyCODONE 5 MG TABLET PO PRN (23:56)
[2018-04-02] MEDS: HYDROcod/ACETAM 5/325 MG TABLET PO PRN (03:46)
[2018-04-02] MEDS: PANTOPRAZOLE 40 MG TABLET PO SCH (06:21)
[2018-04-02] MEDS: METOPROLOL TARTRATE 50 MG TABLET PO SCH (06:22)
[2018-04-02 06:38] LABS: CALCIUM 8.2 mg/dL (8.5-10.3); CREATININE 0.8 mg/dL (0.6-1.2)
[2018-04-02 06:39] LABS: BASOPHILS # (AUTO) 0.1 10^3/uL (0.0-0.1); BASOPHILS % (AUTO) 0.8 %; EOSINOPHILS # (AUTO) 0.2 10^3/uL (0.0-0.7); HGB - HEMOGLOBIN 9.8 g/dL (14.0-18.0); LYMPHOCYTES % (AUTO) 14.2 %; MEAN CORPUSCULAR HEMOGLOBIN 30.1 pg (27.0-31.0); MEAN CORPUSCULAR HGB CONC 33.4 g/dL (32.0-36.0); MEAN CORPUSCULAR VOLUME 90.3 fL (80.0-94.0); MEAN PLATELET VOLUME 7.7 fL (7.4-11.4); MONOCYTES # (AUTO) 0.7 10^3/uL (0.0-1.0); MONOCYTES % (AUTO) 9.4 %; NEUTROPHILS # (AUTO) 5.2 10^3/uL (1.5-6.6); NEUTROPHILS % (AUTO) 72.6 %; PLT - PLATELET COUNT 246 10^3/uL (130-450); RED BLOOD COUNT 3.26 10^6/uL (4.70-6.10); RED CELL DISTRIBUTION WIDTH 14.4 % (12.0-15.0); WHITE BLOOD COUNT 7.2 x10^3/uL (4.8-10.8)
[2018-04-02] MEDS: POLYETHYLENE GLYCOL 3350 17 GM PACKET PO SCH (07:45)
[2018-04-02] MEDS: MAGNESIUM OXIDE 400 MG TABLET PO SCH (07:46)
[2018-04-02] MEDS: CLOPIDOGREL 75 MG TABLET PO SCH (07:46)
[2018-04-02] MEDS: ASPIRIN CHEW 81 MG TABLET PO SCH (07:46)
[2018-04-02] MEDS: Ranolazine [Ranexa] 500 MG PO SCH (07:47)
[2018-04-02] MEDS: ISOSORBIDE DINITRATE 10 MG TABLET PO SCH (07:48)
[2018-04-02] MEDS: SODIUM CHLORIDE FLUSH 0.9% 10 ML SYRINGE IVP SCH (07:49)
[2018-04-02] MEDS: AZITHROMYCIN INJ 500 MG in SODIUM CHLORIDE 0.9% 250 ML IV SCH (07:50)
[2018-04-02] MEDS: INSULIN ASPART 300 UNIT/3 ML PEN SUBQ SCH (07:54)
[2018-04-02] MEDS: ENOXAPARIN 40 MG/0.4 ML SYRINGE SUBQ SCH (07:55)
[2018-04-02 08:57] VITALS: BP 107/50
[2018-04-02] MEDS ORDERED: INSULIN GLARGINE 300 UNIT/3 ML PEN SUBQ SCH (09:00)
[2018-04-02] MEDS: cefTRIAXone 2 GM in SODIUM CHLORIDE 0.9% MINIBAG 100 ML IV SCH (09:06)
--- NOTE | 2018-04-02 09:27 | Discharge Plan ---
Discharge Plan Disposition: 01 Home, Self Care Condition: Stable Prescriptions: Amoxicillin 875 mg PO BID #6 tablet Azithromycin 500 mg PO DAILY #2 tablet Diet: Regular Activity Restrictions: Activity as Tolerated Shower Restrictions: No Driving Restrictions: No Additional Instructions or Follow Up instructions: You were admitted into the hospital because of such severe weakness that you slumped to the floor when getting out of bed. When you came to the emergency room with found you to have a fever, elevated white cell count, and a right lung pneumonia. You have done well with IV antibiotics for community-acquired pneumonia. Your blood cultures and sputum cultures have been negative. You need to finish antibiotic treatment for a few more days and I have discharge you on azithromycin and amoxicillin. Please take some probiotics while you take these antibiotics to help your bowel health. Please see Dr. Morales in follow-up in 1-2 weeks. Also notify your global product manager and your insurance special agent that you were in the hospital but you do not necessarily need to see them right away. No Smoking: If you smoke, Please STOP! Call for help. Follow-up with: Travon Morales MD [Primary Care Provider] -
--- NOTE | 2018-04-02 10:13 | DISCHARGE SUMMARY ---
"Discharge Summary Admit Date: 03/31/18 Discharge Date: 04/02/18 Discharging Provider: Glenis Gómez MD Primary Care Provider: Vaughn Morales MD Code Status: Attempt Resuscitation Condition at Discharge: Stable Discharge Disposition: 01 Home, Self Care - DIAGNOSES Discharge Diagnoses with Status of Each Condition: 1. Community acquired pneumonia involving right lung 2. Chest pain 3. History of coronary artery disease 4. Type 2 diabetes mellitus, with complications, uncontrolled, on long-term use of insulin 5. Hypertension, essential 6. Generalized weakness from illness, resolved 7. Chronic iron deficiency anemia - HPI History of Present Illness: He started feeling generalized malaise and generalized achiness with weakness on 03/29. He thinks he was having fevers accompanied by severe sweats, fatigue, and generalized achiness. He had 24 hours of emesis and then he felt better. But denied any rigors. He saw Dr. Morales on 03/30 and they both agreed it was most likely food poisoning of some type. Later that day he started having tickle in his throat with a cough. But he denied sore throat, rhinorrhea, ear pain. He started getting mildly short of breath, and then 03/30 started having brief episodes of sharp stabbing chest pain. Today those are gone but now he feels like he is having a burning steady ache in his central chest. It is nonradiating. It happens at rest. He has been sweating off and on so he cannot tell if he is diaphoretic from the chest pain or not. He has been nauseated off and on but he cannot tell of his from the chest pain. Today, he tried to get out of bed because the phone was ringing at 5:30 am and it woke him up. He was so weak that he just slid to the floor. And he cannot get up. Crawled on his hands and knees to the bathroom and to call his grandson who lives with him. He was brought to the ER via ambulance. He was evaluated by Dr. Morales. This gentleman has a history of numerous cardiac stents. The last 2 stents were placed after he had a cardiac arrest in 2017. He has 14 total. On examination he was afebrile to 36.8 but tachycardic at 113. Normotensive at 128/73 with 94% oxygen saturation. He was alert, no respiratory distress but had rhonchi at the right lung base. A normal abdominal exam. His troponin was less than 0.04. Random glucose was 322. White cell count with now 23.2 thousand. And chest x-ray confirms a right lower lobe infiltrate. - CONSULTS | PROCEDURES Procedures: 1. Chest x-ray heart size is normal with prior changes of bypass surgery. No new airspace disease. He has scarring or atelectasis at the lateral right lung base that is chronic and unchanged. Chronic minimal right pleural fluid or thickening unchanged. 2. Blood cultures negative at 48 hours - HOSPITAL COURSE Hospital Course: The patient was treated as pneumonia from a clinical standpoint since he had fever, cough, elevated white cell count. He tells me, on the day of discharge, that he has chronic right lung scarring. He is followed by a deputy register of deeds on a yearly basis from the [facility]. His lungs are being well visualized. Within 24 hours he had defervesced, and white cell count was coming down. He started at 23,000 and at discharge he is 7.2 thousand. He will be sent home on continued antibiotic therapy. He was on Rocephin and azithromycin in the hospital. He will be continued on azithromycin for 2 more days to complete that therapy and then continued on amoxicillin high-dose for 3 more days. I would like him to see his primary care provider in the next 1-2 weeks for follow -up. While he does not need to see his deputy register of deeds, I told him to please let him know that he was in the hospital. He is also to take probiotics over-the- counter while he is on antibiotics. Chest pain was problematic and that he has a known horrendous history of mesenteric artery stenosis, vascular stents to his coronary arteries, 2 bypass surgeries, and an episode of cardiac arrest in October 2016 while on the table getting his last 2 stents. Cardiac enzymes were negative. EKGs remain unchanged. There is no change in his medication at this time. He is to follow- up with his sheet mill supervisor on a routine basis. Hypertension was a little bit elevated during his stay. At times he would go up to 131-144. On the day of discharge he was down to 114/52. No other changes were made. Diabetes was initially uncontrolled when he came in. He was over 300. We started him on Lantus and sliding scale insulin and continued his glyburide. But on the first morning of admission he bottomed out to 36. As such as glyburide was held and he was continued on Lantus and sliding scale. Part of the problem was changing his Lantus to p.m. as opposed a.m. He does better when it is given in the morning. He is discharged in his usual medications in the same fashion he takes them at home. On the day of discharge fasting glucose was 188. A1c was 8.7% on admission. He is known to have chronic iron deficiency anemia. He is followed by the medical ambulatory clinic and gets occasional INFeD dosing. During the stay hemoglobin dropped from 12 down to 9.8. I believe this is more dilutional because he was dehydrated and orthostatic and had almost passed out when he came in. We did not do further workup for the anemia since it is well delineated by oncology notes. On the day of discharge white cell count was 7.2 and hemoglobin was 9.8. Hematocrit 29.4 and platelets 246 - ALLERGIES Allergies/Adverse Reactions: Allergies Allergy/AdvReac Type Severity Reaction Status Date / Time amiodarone Allergy Severe Anaphylaxis Verified 03/31/18 11:57 levodopa Allergy Severe Nausea Verified 03/31/18 11:57 venom-honey bee Allergy Severe Edema/Light Verified 03/31/18 11:57 [bee venom (honey bee)] headed moxifloxacin HCl * AdvReac Severe GI upset Verified 03/31/18 11:57 [From Avelox] - MEDICATIONS Home Medications: Ambulatory Orders Medication Instructions Recorded Confirmed Amitriptyline [Elavil] 25 mg PO HS 06/09/13 03/31/18 HYDROcod/ACETAM 5/325 [[place] 5/325] 1 tab PO QID PRN 06/09/13 03/31/18 Insulin Glargine,Hum.rec.anlog 40 unit SQ QPM 06/09/13 03/31/18 [Lantus] Metformin HCl [Metformin HCl ER] 1,000 mg PO BID 06/09/13 03/31/18 Mometasone Furoate [Nasonex] 2 spray KILLIAN BID 06/09/13 03/31/18 Multivitamin [Multi-Vitamin Daily] 1 each PO DAILY 06/09/13 03/31/18 Nitroglycerin [Nitrostat] 0.4 mg SL Q5MIN PRN 06/09/13 03/31/18 clonazePAM [Klonopin] 0.5 mg PO HS 06/09/13 03/31/18 Cholecalciferol (Vitamin D3) 1,000 unit PO DAILY 09/11/13 03/31/18 [Vitamin D3] Ascorbic Acid [Vitamin C] 1,000 mg PO DAILY 07/05/15 03/31/18 Ezetimibe [Zetia] 10 mg PO DAILY PM 02/25/16 03/31/18 Atorvastatin Calcium [Lipitor] 80 mg PO QPM 04/23/17 03/31/18 Clopidogrel [Plavix] 75 mg PO DAILY 04/23/17 03/31/18 Pantoprazole [Protonix] 40 mg PO QDAC 04/23/17 03/31/18 Ranolazine [Ranexa] 500 mg PO BID 04/23/17 03/31/18 amLODIPine [Norvasc] 5 mg PO QPM 04/23/17 03/31/18 Isosorbide Dinitrate 20 mg PO BID 05/24/17 03/31/18 Albuterol Sulfate [Proair Hfa 2 puffs INH Q4H PRN 03/31/18 03/31/18 Inhaler] Aspirin [Aspirin EC] 81 mg PO DAILY 03/31/18 03/31/18 Furosemide 20 mg PO DAILY 03/31/18 03/31/18 Gabapentin 300 mg PO BID 03/31/18 03/31/18 Glipizide [Glipizide ER] 5 mg PO DAILY 03/31/18 03/31/18 Gluc/Devin-MSM#1/Vit C/Blane/Bor 1 each PO BID 03/31/18 03/31/18 [Auzmnbm-Ekdll-XFP Complex Cplt] Magnesium Oxide [Magnesium] 500 mg PO DAILY 03/31/18 03/31/18 Metoprolol Tartrate [Lopressor] 50 mg PO TID 03/31/18 03/31/18 raNITIdine [Zantac] 150 mg PO QPM 03/31/18 03/31/18 Amoxicillin 875 mg PO BID #6 tablet 04/02/18 Azithromycin 500 mg PO DAILY #2 tablet 04/02/18 - PHYSICAL EXAM AT DISCHARGE General Appearance: positive: No acute distress, Alert, Other (He shaved, washed his hair and combed it so he did look as best as he could to get out of here. Slender elderly man, exceedingly pleasant and a pleasure to of taking care of.) Eyes Bilateral: positive: PERRL, EOMI, Other (Wearing glasses) ENT: positive: Pharynx nml, Other (Chronic low-grade hoarse voice). negative: Pharyngeal erythema Neck: positive: No JVD, Carotid bruit. negative: Stiff neck Respiratory: positive: Chest non-tender, No respiratory distress, Rhonchi ( Right lower lung that clear with a deep cough). negative: Wheezes, Rales Cardiovascular: positive: Regular rate & rhythm, Systolic murmur. negative: Gallop/S4, Friction rub Abdomen: positive: Non-tender, No organomegaly, Nml bowel sounds, No distention Extremities: positive: Full ROM, Other (Delayed capillary refill at the feet) Neurologic/Psychiatric: positive: Oriented x3, CN's nml (2-12), Motor nml - LABS Result Diagrams: 04/02/18 06:15 04/02/18 06:15 - FOLLOW UP Follow Up: Travon Moralse MD"
== END 2018-04-02 10:45 | disposition home or self-care (01) | DRG 193 ==
LOC: EDUNIT# → SUPCPDRO 11:46 → ED 11:46 → MS2 14:11 → ED 15:34
PROVIDERS: ADMIT Specialist; ATTEND Specialist
DX: R07.9 Chest pain, unspecified (principal); J18.1 Lobar pneumonia, unspecified organism; I48.91 Unspecified atrial fibrillation; E11.9 Type 2 diabetes mellitus without complications; J18.9 Pneumonia, unspecified organism; G93.40 Encephalopathy, unspecified; R07.89 Other chest pain; E86.0 Dehydration; J98.4 Other disorders of lung; I25.10 Atherosclerotic heart disease of native coronary artery without angina pectoris; E11.42 Type 2 diabetes mellitus with diabetic polyneuropathy; E11.65 Type 2 diabetes mellitus with hyperglycemia; I11.0 Hypertensive heart disease with heart failure; I50.9 Heart failure, unspecified; D50.9 Iron deficiency anemia, unspecified; G47.30 Sleep apnea, unspecified; K21.9 Gastro-esophageal reflux disease without esophagitis; I25.2 Old myocardial infarction; Z79.4 Long term (current) use of insulin; Z95.5 Presence of coronary angioplasty implant and graft; Z95.1 Presence of aortocoronary bypass graft; Z79.02 Long term (current) use of antithrombotics/antiplatelets; Z79.899 Other long term (current) drug therapy; Z79.82 Long term (current) use of aspirin; Z87.11 Personal history of peptic ulcer disease; Z87.19 Personal history of other diseases of the digestive system; Z85.820 Personal history of malignant melanoma of skin; Z85.72 Personal history of non-Hodgkin lymphomas; Z57.5 Occupational exposure to toxic agents in other industries; Z87.891 Personal history of nicotine dependence; Z91.81 History of falling
CPT/HCPCS: 36415; 71045; 80048; 80053; 83036; 83605; 83690; 84484; 85025; 85379; 85610; 87040; 93005; 96360; 99284

== ENCOUNTER 2018-08-04 13:38 | Outpatient (CLI) | payer MEDICARE, OTHER ==
[2018-08-04 20:32] LABS: CALCIUM 8.5 mg/dL (8.5-10.3)
== END 2018-08-04 23:59 | disposition home or self-care (01) ==
LOC: LAB.WCP 13:38
PROVIDERS: ATTEND Internal Medicine Cardiovascular Disease
DX: R06.00 Dyspnea, unspecified (principal); E11.9 Type 2 diabetes mellitus without complications
CPT/HCPCS: 36415; 80048

== ENCOUNTER 2018-08-05 08:00 | Outpatient (CLI) | payer MEDICARE, OTHER ==
[2018-08-05 19:33] LABS: ALBUMIN 3.7 g/dL (3.2-5.5); CALCIUM 8.4 mg/dL (8.5-10.3); PHOSPHORUS 3.9 mg/dL (2.5-4.6)
== END 2018-08-05 23:59 | disposition home or self-care (01) ==
LOC: LAB.WCP 08:00
PROVIDERS: ATTEND Internal Medicine Cardiovascular Disease
DX: I10 Essential (primary) hypertension (principal); N28.9 Disorder of kidney and ureter, unspecified; E11.9 Type 2 diabetes mellitus without complications
CPT/HCPCS: 36415; 80069

== ENCOUNTER 2018-08-21 15:10 | Emergency (ER) | payer MEDICARE, OTHER ==
--- NOTE | 2018-08-21 15:16 | ED Physician Documentation ---
PD HPI ABD PAIN - Stated complaint Stated Complaint: ABD PX - History obtained from History obtained from: Patient - History of Present Illness Timing - onset: Other (His was falling and she kind of fell against him and he has left upper quadrant pain and lower rib pain on the left. No other injuries.) Review of Systems Constitutional: reports: Reviewed and negative Nose: reports: Reviewed and negative Throat: reports: Reviewed and negative Cardiac: reports: Reviewed and negative PD PAST MEDICAL HISTORY - Past Medical History Cardiovascular: Congestive heart failure, Hypertension, Coronary artery disease (10 stents with bypass surgery in the past. He then had a chest pain in October 2016 and sent to [facility]. He was discharged adn 2 days later his Home Health Outreach Coordinator at [facility] had 2 more stents placed and while on the table coded. ), [place], Arrhythmia, Valve disorder Respiratory: Shortness of breath, Sleep apnea (mild), CPAP use Endocrine/Autoimmune: Type 2 diabetes (Seen on colonoscopy July 2015 on insulin, complicated by severe neuropathy) GI: GERD, Ulcers, Colon polyps, Chronic constipation, Diverticulitis, Other HEENT: Other (Left upper jaw fracture after a tooth removal) Psych: None Musculoskeletal: Osteoarthritis, Fibromyalgia, Rheumatoid arthritis Derm: Other - Past Surgical History Past Surgical History: Yes General: Other Cardiovascular: Coronary stent, Other - Present Medications Home Medications: Ambulatory Orders Medication Instructions Recorded Confirmed Amitriptyline [Elavil] 25 mg PO HS 06/09/13 07/11/18 HYDROcod/ACETAM 5/325 [Glady 5/325] 1 tab PO QID PRN 06/09/13 07/11/18 Insulin Glargine,Hum.rec.anlog 40 unit SQ QPM 06/09/13 07/11/18 [Lantus] Metformin HCl [Metformin HCl ER] 1,000 mg PO BID 06/09/13 07/11/18 Mometasone Furoate [Nasonex] 2 spray KILLIAN BID 06/09/13 07/11/18 Multivitamin [Multi-Vitamin Daily] 1 each PO DAILY 06/09/13 07/11/18 Nitroglycerin [Nitrostat] 0.4 mg SL Q5MIN PRN 06/09/13 07/11/18 clonazePAM [Klonopin] 0.5 mg PO HS 06/09/13 07/11/18 Cholecalciferol (Vitamin D3) 1,000 unit PO DAILY 09/11/13 07/11/18 [Vitamin D3] Ascorbic Acid [Vitamin C] 1,000 mg PO DAILY 07/05/15 07/11/18 Ezetimibe [Zetia] 10 mg PO DAILY PM 02/25/16 07/11/18 Atorvastatin Calcium [Lipitor] 80 mg PO QPM 04/23/17 07/11/18 Clopidogrel [Plavix] 75 mg PO DAILY 04/23/17 07/11/18 Pantoprazole [Protonix] 40 mg PO QDAC 04/23/17 07/11/18 Ranolazine [Ranexa] 500 mg PO BID 04/23/17 07/11/18 amLODIPine [Norvasc] 5 mg PO QPM 04/23/17 07/11/18 Isosorbide Dinitrate 20 mg PO BID 05/24/17 07/11/18 Albuterol Sulfate [Proair Hfa 2 puffs INH Q4H PRN 03/31/18 07/11/18 Inhaler] Aspirin [Aspirin EC] 81 mg PO DAILY 03/31/18 07/11/18 Furosemide 20 mg PO DAILY 03/31/18 07/11/18 Gabapentin 300 mg PO BID 03/31/18 07/11/18 Glipizide [Glipizide ER] 5 mg PO DAILY 03/31/18 07/11/18 Gluc/Devin-MSM#1/Vit C/Blane/Bor 1 each PO BID 03/31/18 07/11/18 [Klqohmi-Lmujo-PSG Complex Cplt] Magnesium Oxide [Magnesium] 500 mg PO DAILY 03/31/18 07/11/18 Metoprolol Tartrate [Lopressor] 50 mg PO TID 03/31/18 07/11/18 raNITIdine [Zantac] 150 mg PO QPM 03/31/18 07/11/18 Amoxicillin 875 mg PO BID #6 tablet 04/02/18 07/11/18 Azithromycin 500 mg PO DAILY #2 tablet 04/02/18 07/11/18 - Allergies Allergies/Adverse Reactions: Allergies Allergy/AdvReac Type Severity Reaction Status Date / Time amiodarone Allergy Severe Anaphylaxis Verified 03/31/18 11:57 levodopa Allergy Severe Nausea Verified 03/31/18 11:57 venom-honey bee Allergy Severe Edema/Light Verified 03/31/18 11:57 [bee venom (honey bee)] headed carbidopa Allergy Nausea Verified 08/21/18 15:19 moxifloxacin HCl * AdvReac Severe GI upset Verified 03/31/18 11:57 [From Avelox] - Social History Does the pt smoke?: No Smoking Status: Former smoker Does the pt drink ETOH?: No Does the pt have substance abuse?: No - Immunizations Immunizations are current?: Yes - POLST Patient has POLST: Yes POLST Status: Full Code PD ED PE NORMAL - Vitals Vital signs reviewed: Yes - General General: Alert and oriented X 3, No acute distress - Respiratory Respiratory: No respiratory distress, Clear bilaterally - Abdomen Abdomen: Other (Mild tenderness in the left upper quadrant more than the left ribs.) - Neuro Neuro: Alert and oriented X 3, Normal speech Results - Vitals Vitals: Vital Signs - 24 hr 08/21/18 15:15 Temperature 36.2 C L Heart Rate 59 L Respiratory 18 Rate Blood Pressure 146/63 H O2 Saturation 100 Oxygen O2 Source Room air - Labs Labs: Laboratory Tests 08/21/18 08/21/18 16:25 16:25 WBC 7.1 RBC 3.88 L Hgb 11.8 L Hct 35.3 L MCV 90.9 MCH 30.4 MCHC 33.5 RDW 14.0 Plt Count 186 MPV 8.4 Neut # (Auto) 5.3 Lymph # (Auto) 0.9 L Clark # (Auto) 0.7 Eos # (Auto) 0.2 Baso # (Auto) 0.1 Absolute Nucleated RBC 0.00 Nucleated RBC % 0.0 Sodium 129 L Potassium 4.2 Chloride 95 L Carbon Dioxide 25 Anion Gap 9.0 BUN 14 Creatinine 1.0 Estimated GFR (MDRD) 74 L Glucose 358 H Calcium 8.5 Total Bilirubin 0.5 AST 20 ALT 19 Alkaline Phosphatase 85 Total Protein 6.5 L Albumin 3.7 Globulin 2.8 Albumin/Globulin Ratio 1.3 Lipase 18 L - Rads (name of study) CT A/P Radiology: EMP read contemporaneously (NAD, no trauma, atherosclerosis) Departure - Departure Disposition: 01 Home, Self Care Clinical Impression: Abdominal wall contusion Qualifiers: Encounter type: initial encounter Qualified Code(s): S30.1XXA - Contusion of abdominal wall, initial encounter Condition: Good Record reviewed to determine appropriate education?: Yes Instructions: ED Contusion Soft Tissue Comments: Call your doctor to arrange a follow-up appointment, make the next available appointment. In the interim, return anytime if worse or if new symptoms develop. Your blood pressure was elevated today on check into the emergency department. This does not mean that you have hypertension, it is a common phenomenon to come to the emergency department and have elevated blood pressure. I recommend that you see your primary care physician within the week to have it rechecked when you are feeling better.
[2018-08-21] MEDS ORDERED: HYDROcod/ACETAM 5/325 MG TABLET PO STA (15:45)
[2018-08-21 16:50] LABS: BASOPHILS # (AUTO) 0.1 10^3/uL (0.0-0.1); BASOPHILS % (AUTO) 0.9 %; EOSINOPHILS # (AUTO) 0.2 10^3/uL (0.0-0.7); EOSINOPHILS % (AUTO) 2.7 %; HGB - HEMOGLOBIN 11.8 g/dL (14.0-18.0); LYMPHOCYTES # (AUTO) 0.9 10^3/uL (1.5-3.5); LYMPHOCYTES % (AUTO) 12.1 %; MEAN CORPUSCULAR HEMOGLOBIN 30.4 pg (27.0-31.0); MEAN CORPUSCULAR HGB CONC 33.5 g/dL (32.0-36.0); MEAN CORPUSCULAR VOLUME 90.9 fL (80.0-94.0); MEAN PLATELET VOLUME 8.4 fL (7.4-11.4); MONOCYTES # (AUTO) 0.7 10^3/uL (0.0-1.0); MONOCYTES % (AUTO) 10.2 %; NEUTROPHILS # (AUTO) 5.3 10^3/uL (1.5-6.6); NEUTROPHILS % (AUTO) 74.1 %; PLT - PLATELET COUNT 186 10^3/uL (130-450); RED BLOOD COUNT 3.88 10^6/uL (4.70-6.10); WHITE BLOOD COUNT 7.1 x10^3/uL (4.8-10.8)
[2018-08-21 17:03] LABS: ALBUMIN 3.7 g/dL (3.2-5.5); ALBUMIN/GLOBULIN RATIO 1.3 (1.0-2.2); BILIRUBIN,TOTAL 0.5 mg/dL (0.2-1.0); CALCIUM 8.5 mg/dL (8.5-10.3); TOTAL PROTEIN 6.5 g/dL (6.7-8.2)
[2018-08-21] MEDS ORDERED: IOVERSOL 320 100 ML VIAL IVP ONE ×2 (17:13→17:34)
--- NOTE | 2018-08-21 18:01 | CT Report ---
Reason: IV only, LUQ trauma Procedure Date: 08/21/2018 Accession Number: [id number] / [id number] Procedure: CT - Abdomen/Pelvis W/ CPT Code: FULL RESULT: EXAM: CT ABDOMEN AND PELVIS EXAM DATE: 08/21/2018 05:29 PM. CLINICAL HISTORY: Left upper quadrant trauma. COMPARISONS: None. TECHNIQUE: Routine helical CT imaging was performed through the abdomen and pelvis. IV contrast: 100 cc of Optiray 320. Enteric contrast: No. Reconstructions: Coronal and sagittal. In accordance with CT protocol optimization, one or more of the following dose reduction techniques were utilized for this exam: automated exposure control, adjustment of mA and/or KV based on patient size, or use of iterative reconstructive technique. FINDINGS: Lung Bases: Peripheral reticulation noted. Liver: Normal. No masses. Gallbladder/Bile Ducts: Unremarkable. Spleen: Normal. Pancreas: Normal. Adrenal Glands: Normal. Kidneys: Normal. No masses or hydronephrosis. Peritoneal Cavity/Bowel: Normal. No free fluid, free air or adenopathy. No masses or acute inflammatory process. The appendix is well visualized and normal. Pelvic Organs: Normal. The bladder and visualized pelvic organs are within normal limits. Vasculature: No aortic aneurysm. Advanced atherosclerotic calcification. Left common iliac stenosis noted. Bones: No significant abnormality. Other: None. IMPRESSION: 1. No acute abnormalities of the abdomen and pelvis. 2. Advanced atherosclerotic calcification noted, with left common iliac stenosis evident. RADIA
[2018-08-21 19:09] VITALS: BP 134/57
== END 2018-08-21 18:25 | disposition home or self-care (01) ==
LOC: ED 15:10
DX: S30.1XXA Contusion of abdominal wall, initial encounter (principal); W22.8XXA Striking against or struck by other objects, initial encounter; I11.0 Hypertensive heart disease with heart failure; I50.9 Heart failure, unspecified; I25.10 Atherosclerotic heart disease of native coronary artery without angina pectoris; Z95.1 Presence of aortocoronary bypass graft; Z95.5 Presence of coronary angioplasty implant and graft; E11.40 Type 2 diabetes mellitus with diabetic neuropathy, unspecified; Z87.891 Personal history of nicotine dependence; Z79.4 Long term (current) use of insulin
CPT/HCPCS: 36415; 74177; 80053; 83690; 85025; 99283; 99284; A9270; Q9967

== ENCOUNTER 2018-09-19 13:24 | Outpatient (CLI) | payer MEDICARE, OTHER ==
[2018-09-19] MEDS ORDERED: BARIUM SULFATE 135 ML BOTTLE PO ONE (15:28)
[2018-09-19] MEDS ORDERED: BARIUM SULFATE 148 GM POWDER PO ONE (15:28)
--- NOTE | 2018-09-20 09:43 | XRAY Report ---
Reason: DYSPHAGIA Procedure Date: 09/19/2018 Accession Number: [id number] / [id number] Procedure: FL - Esophogram CPT Code: FULL RESULT: EXAM: Esophogram DATE: 09/19/2018 3:09 PM CLINICAL HISTORY: DYSPHAGIA. Sensation of food getting stuck in his throat. COMPARISON: None. TECHNIQUE: Routine double contrast esophagram. Fluoroscopic exposure time: 5 minutes 15 seconds. Number of fluoroscopic series: 23 FINDINGS: Swallowing Mechanism: Silent aspiration. 13 mm barium tablet lodges in the vallecula. Despite changes in head position and varying consistency of fluids the barium tablet is difficult to dislodge. This corresponds to the patient's sensation of food being stuck. Once the barium tablet passes into the esophagus and then stops at the level of the aortic arch where the esophagus is sharply angled to the right. This re-creates the other sensation of food sticking that the patient experiences. With repeated swallows of fluid the barium tablet ultimately passes into the stomach. Esophageal Motility: Normal peristaltic stripping wave. Mucosa: . No ulcerations or masses. Gastroesophageal Junction: No hernia, stricture, or significant reflux. Other: Status post sternotomy and CABG.. IMPRESSION: 1. Silent aspiration. 2. A 13 mm barium tablet becomes stuck in 2 locations, reproducing the patient's clinical symptoms. The more superior level is at the vallecula, where the tablet is difficult to dislodge even with changes in head position and the consistency of liquid. The more inferior level is at the aortic arch where the esophagus is sharply angled to the right and the pill has difficulty transiting the bend. 3. Unremarkable gastroesophageal junction. 4. Changes of prior CABG RADIA
== END 2018-09-19 13:25 | disposition home or self-care (01) ==
LOC: DI 13:24
PROVIDERS: ATTEND Family Medicine
DX: R13.10 Dysphagia, unspecified (principal); K22.8 Other specified diseases of esophagus
CPT/HCPCS: 74220; A9270

== ENCOUNTER 2018-10-03 13:08 | Outpatient (CLI) | payer MEDICARE, OTHER ==
--- NOTE | 2018-10-03 14:34 | XRAY Report ---
Reason: DYSPHAGIA Procedure Date: 10/03/2018 Accession Number: [id number] / [id number] Procedure: FL - Modified Barium Swallow W/SP CPT Code: FULL RESULT: EXAM: MODIFIED BARIUM SWALLOW EXAM DATE: 10/03/2018 02:04 PM. CLINICAL HISTORY: DYSPHAGIA. COMPARISON: ESOPHAGRAM 09/19/2018 2:47 PM. TECHNIQUE: Under the direction of speech pathology, patient swallowed various consistencies of barium under lateral fluoroscopic observation of the neck. Fluoroscopy Time: 1 minute 49 seconds. Number of Images: 188. FINDINGS: Swallowing Mechanism: Normal oral phase and swallowing reflex. Airway Protection: Normal epiglottic motion. Tracheal penetration without aspiration. Pharynx: Significant predominate vallecular sinus pooling with retention of contrast. Other: None. IMPRESSION: Significant contrast pooling predominantly in the vallecular recesses as described. RADIA
== END 2018-10-03 13:09 | disposition home or self-care (01) ==
LOC: DI 13:08
PROVIDERS: ATTEND Family Medicine
DX: R13.10 Dysphagia, unspecified (principal)
CPT/HCPCS: 74230

== ENCOUNTER 2018-11-09 19:44 | Outpatient (CLI) | payer MEDICARE, OTHER | END 2018-11-09 19:45 | disposition critical access hospital (66) | LOC: EMS 19:44 | PROVIDERS: ATTEND Surgery | DX: R25.1 Tremor, unspecified (principal); R11.10 Vomiting, unspecified; R82.90 Unspecified abnormal findings in urine | CPT/HCPCS: A0425; A0427 ==

== ENCOUNTER 2018-11-09 20:03 | Inpatient (IN) | payer MEDICARE, OTHER ==
[2018-11-09] MEDS ORDERED: ACETAMINOPHEN 325 MG TABLET PO STA (20:19)
--- NOTE | 2018-11-09 20:21 | ED Physician Documentation ---
History of Present Illness - Stated complaint Stated Complaint: SHAKING/VOMITING - Chief complaint Chief Complaint: Abd Pain - History obtained from History obtained from: Patient, EMS - History of Present Illness Timing: Today (this morning) Pain level max: 3 Pain level now: 2 (headache) Improved by: oxygen, rest Worsened by: standing, ambulating Associated symptoms: weakness, tremulous - Additonal information Additional information: since this morning, patient has had generalized tremulousness, generalized weakness. He had chest pain last night that lasted few minutes and spontaneously resolved. He has had dyspnea with occasional, nonproductive cough today, and occasional nausea with 1-2 episodes emesis. He was having weakness when he tried to stand to urinate, and because of the generalized weakness, he was unable to stay standing, resulting in him falling and striking his head against the toilet. This happened a second time when he tried to get back up. He denies LOC, says he does have generalized ARNDT. Medics took temperature at scene and found patient to have temperature of 101.5. Blood sugar was 176 Review of Systems Constitutional: reports: Fever, Myalgias, Fatigue. denies: Chills, Sweats Eyes: reports: Reviewed and negative Ears: reports: Reviewed and negative Nose: reports: Reviewed and negative Throat: reports: Reviewed and negative Cardiac: reports: Chest pain / pressure (last night, resolved and has not recurred). denies: Palpitations, Pedal edema Respiratory: reports: Dyspnea, Cough. denies: Wheezing GI: reports: Nausea, Vomiting. denies: Abdominal Pain, Constipation, Diarrhea : denies: Dysuria, Frequency Skin: reports: Reviewed and negative Musculoskeletal: reports: Reviewed and negative Neurologic: reports: Generalized weakness, Focal weakness, Numbness, Headache, Head injury. denies: Confused, Altered mental status, LOC PD PAST MEDICAL HISTORY - Past Medical History Cardiovascular: Congestive heart failure, Hypertension, Coronary artery disease (10 stents with bypass surgery in the past. He then had a chest pain in October 2016 and sent to [facility]. He was discharged adn 2 days later his Debeaker at [facility] had 2 more stents placed and while on the table coded. ), [place], Arrhythmia, Valve disorder Respiratory: Shortness of breath, Sleep apnea (mild), CPAP use Neuro: None Endocrine/Autoimmune: Type 2 diabetes (Seen on colonoscopy July 2015 on insulin, complicated by severe neuropathy) GI: GERD, Ulcers, Colon polyps, Chronic constipation, Diverticulitis, Other HEENT: Other (Left upper jaw fracture after a tooth removal) Psych: None Musculoskeletal: Osteoarthritis, Fibromyalgia, Rheumatoid arthritis Derm: Other - Past Surgical History Past Surgical History: Yes General: Other Cardiovascular: Coronary stent, Other - Present Medications Home Medications: Ambulatory Orders Medication Instructions Recorded Confirmed Amitriptyline [Elavil] 25 mg PO HS 06/09/13 11/09/18 HYDROcod/ACETAM 5/325 [Grawn 5/325] 1 tab PO QID PRN 06/09/13 11/09/18 Insulin Glargine,Hum.rec.anlog 40 unit SQ QPM 06/09/13 11/09/18 [Lantus] Metformin HCl [Metformin HCl ER] 1,000 mg PO BID 06/09/13 11/09/18 Mometasone Furoate [Nasonex] 2 spray KILLIAN BID 06/09/13 11/09/18 Multivitamin [Multi-Vitamin Daily] 1 each PO DAILY 06/09/13 11/09/18 Nitroglycerin [Nitrostat] 0.4 mg SL Q5MIN PRN 06/09/13 11/09/18 clonazePAM [Klonopin] 0.5 mg PO HS 06/09/13 11/09/18 Ascorbic Acid [Vitamin C] 1,000 mg PO DAILY 07/05/15 11/09/18 Ezetimibe [Zetia] 10 mg PO DAILY PM 02/25/16 11/09/18 Atorvastatin Calcium [Lipitor] 80 mg PO QPM 04/23/17 11/09/18 Clopidogrel [Plavix] 75 mg PO DAILY 04/23/17 11/09/18 Pantoprazole [Protonix] 40 mg PO QDAC 04/23/17 11/09/18 amLODIPine [Norvasc] 5 mg PO QPM 04/23/17 11/09/18 Isosorbide Dinitrate 20 mg PO BID 05/24/17 11/09/18 Albuterol Sulfate [Proair Hfa 2 puffs INH Q4H PRN 03/31/18 11/09/18 Inhaler] Aspirin [Aspirin EC] 81 mg PO DAILY 03/31/18 11/09/18 Furosemide 20 mg PO DAILY 03/31/18 11/09/18 Gabapentin 300 mg PO BID 03/31/18 11/09/18 Glipizide [Glipizide ER] 5 mg PO DAILY 03/31/18 11/09/18 Gluc/Devin-MSM#1/Vit C/Blane/Bor 1 each PO BID 03/31/18 11/09/18 [Cwtjehp-Ejlov-TQQ Complex Cplt] Magnesium Oxide [Magnesium] 500 mg PO DAILY 03/31/18 11/09/18 Metoprolol Tartrate [Lopressor] 50 mg PO TID 03/31/18 11/09/18 - Allergies Allergies/Adverse Reactions: Allergies Allergy/AdvReac Type Severity Reaction Status Date / Time amiodarone Allergy Severe Anaphylaxis Verified 11/09/18 20:09 levodopa Allergy Severe Nausea Verified 11/09/18 20:09 venom-honey bee Allergy Severe Edema/Light Verified 11/09/18 20:09 [bee venom (honey bee)] headed carbidopa Allergy Nausea Verified 11/09/18 20:09 moxifloxacin HCl * AdvReac Severe GI upset Verified 11/09/18 20:09 [From Avelox] - Social History Does the pt smoke?: No Smoking Status: Former smoker Does the pt drink ETOH?: No Does the pt have substance abuse?: No - Immunizations Immunizations are current?: Yes - POLST Patient has POLST: Yes POLST Status: Full Code PD ED PE NORMAL - Vitals Vital signs reviewed: Yes - General General: Alert and oriented X 3, No acute distress, Well developed/nourished - HEENT HEENT: PERRL, EOMI, Moist mucous membranes - Neck Neck: Supple, no meningeal sign, No bony TTP - Cardiac Cardiac: No murmur - Respiratory Respiratory: No respiratory distress - Abdomen Abdomen: Normal bowel sounds, Soft, Non tender - Back Back: No CVA TTP, No spinal TTP - Derm Derm: Normal color, Warm and dry - Extremities Extremities: No deformity, No tenderness to palpate, Normal ROM s pain, No edema - Neuro Neuro: Alert and oriented X 3, chain builder 2-12 intact, No motor deficit, No sensory deficit, Normal speech Motor: Obeys Commands Verbal: Oriented PD ED PE EXPANDED - Cardiac Cardiac: Tachy, Regular Rhythm - Respiratory Respiratory: Rales (course rales bilateral bases to long-term up from bases) Results - Vitals Vitals: Vital Signs - 24 hr 11/09/18 11/09/18 11/09/18 20:06 20:20 21:18 Temperature 37.9 C H Heart Rate 107 H 98 Respiratory 18 18 18 Rate Blood Pressure 109/90 H 97/67 O2 Saturation 91 L 95 Oxygen O2 Source Nasal cannula - EKG (time done) No standard instances Rate: Rate (enter#) (109) Rhythm: NSR, LAE Dawson: Normal Intervals: Normal SD, RBBB QRS: Normal Ischemia: Normal ST segments Compare to prior EKG: Unchanged from prior EKG (03/31/18) - Labs Labs: Laboratory Tests 11/09/18 11/09/18 11/09/18 10:12 20:52 20:52 WBC 17.9 H RBC 4.41 L Hgb 12.8 L Hct 38.8 L MCV 87.9 MCH 29.0 MCHC 33.0 RDW 15.0 Plt Count 168 MPV 9.0 Neut # (Auto) Not Reportable Lymph # (Auto) Not Reportable [place] # (Auto) Not Reportable Eos # (Auto) Not Reportable Baso # (Auto) Not Reportable Absolute Nucleated RBC Not Reportable Total Counted 100 Band Neuts % (Manual) 22 H Abnorm Lymph % (Manual) 0 Nucleated RBC % Not Reportable Neutrophils # (Manual) 16.6 H Lymphocytes # (Manual) 0.2 L Monocytes # (Manual) 1.1 H Eosinophils # (Manual) 0.0 Basophils # (Manual) 0.0 Differential Comment MANUAL DIFFERENTIAL Manual Slide Review Indicated Platelet Estimate NORMAL (130-450,000) Platelet Morphology NORMAL APPEARANCE RBC Morph Micro Appear NORMAL APPEARANCE Sodium 137 Potassium 3.6 Chloride 98 L Carbon Dioxide 27 Anion Gap 12.0 BUN 14 Creatinine 0.8 Estimated GFR (MDRD) 95 Glucose 207 H Lactic Acid Calcium 8.7 Total Bilirubin 0.8 AST 29 ALT 19 Alkaline Phosphatase 66 Total Creatine Kinase 192 CK-MB (CK-2) Troponin I B-Natriuretic Peptide Total Protein 6.0 L Albumin 3.4 Globulin 2.6 Albumin/Globulin Ratio 1.3 Lipase 20 L Urine Color YELLOW Urine Clarity CLEAR Urine pH 6.5 Ur Specific [place] <=1.005 Urine Protein NEGATIVE Urine Glucose (UA) NEGATIVE Urine Ketones NEGATIVE Urine Occult Blood TRACE-LYSE Urine Nitrite NEGATIVE Urine Bilirubin NEGATIVE Urine Urobilinogen 0.2 (NORMAL) Ur Leukocyte Esterase NEGATIVE Ur Microscopic Review NOT INDICATED Urine Culture Comments NOT INDICATED Influenza A (Rapid) Influenza B (Rapid) 11/09/18 11/09/18 11/09/18 20:52 20:52 20:54 WBC RBC Hgb Hct MCV MCH MCHC RDW Plt Count MPV Neut # (Auto) Lymph # (Auto) [place] # (Auto) Eos # (Auto) Baso # (Auto) Absolute Nucleated RBC Total Counted Band Neuts % (Manual) Abnorm Lymph % (Manual) Nucleated RBC % Neutrophils # (Manual) Lymphocytes # (Manual) Monocytes # (Manual) Eosinophils # (Manual) Basophils # (Manual) Differential Comment Manual Slide Review Platelet Estimate Platelet Morphology RBC Morph Micro Appear Sodium Potassium Chloride Carbon Dioxide Anion Gap BUN Creatinine Estimated GFR (MDRD) Glucose Lactic Acid 2.8 H Calcium Total Bilirubin AST ALT Alkaline Phosphatase Total Creatine Kinase CK-MB (CK-2) 3.0 Troponin I < 0.04 B-Natriuretic Peptide 379 H Total Protein Albumin Globulin Albumin/Globulin Ratio Lipase Urine Color Urine Clarity Urine pH Ur Specific [place] Urine Protein Urine Glucose (UA) Urine Ketones Urine Occult Blood Urine Nitrite Urine Bilirubin Urine Urobilinogen Ur Leukocyte Esterase Ur Microscopic Review Urine Culture Comments Influenza A (Rapid) Influenza B (Rapid) 11/09/18 21:13 WBC RBC Hgb Hct MCV MCH MCHC RDW Plt Count MPV Neut # (Auto) Lymph # (Auto) [place] # (Auto) Eos # (Auto) Baso # (Auto) Absolute Nucleated RBC Total Counted Band Neuts % (Manual) Abnorm Lymph % (Manual) Nucleated RBC % Neutrophils # (Manual) Lymphocytes # (Manual) Monocytes # (Manual) Eosinophils # (Manual) Basophils # (Manual) Differential Comment Manual Slide Review Platelet Estimate Platelet Morphology RBC Morph Micro Appear Sodium Potassium Chloride Carbon Dioxide Anion Gap BUN Creatinine Estimated GFR (MDRD) Glucose Lactic Acid Calcium Total Bilirubin AST ALT Alkaline Phosphatase Total Creatine Kinase CK-MB (CK-2) Troponin I B-Natriuretic Peptide Total Protein Albumin Globulin Albumin/Globulin Ratio Lipase Urine Color Urine Clarity Urine pH Ur Specific [place] Urine Protein Urine Glucose (UA) Urine Ketones Urine Occult Blood Urine Nitrite Urine Bilirubin Urine Urobilinogen Ur Leukocyte Esterase Ur Microscopic Review Urine Culture Comments Influenza A (Rapid) Negative Influenza B (Rapid) Negative - Rads (name of study) chest xray Radiology: Prelim report reviewed, See rad report CT head Radiology: Prelim report reviewed, See rad report PD MEDICAL DECISION MAKING - ED course Complexity details: reviewed results, re-evaluated patient, considered differential, d/w patient - Sepsis Event Current Stage of Sepsis: Sepsis Possible source of Sepsis: Pulmonary Mental/Cognitive Status: Alert/Oriented X3, Normal for patient Reason for not giving 30ml/kg crystalloid fluids: Patient has heart failure Capillary refill: Less than 2 seconds Peripheral Pulse Strength: 3+ Normal Peripheral Pulse Location: Radial Bedside ultrasound performed: No Departure - Departure Disposition: 66 [facility] DC/Xfer Clinical Impression: Pneumonia, Sepsis Condition: Stable Discharge Date/Time: 11/09/18 22:21
[2018-11-09 20:57] LABS: HGB - HEMOGLOBIN 12.8 g/dL (14.0-18.0)
[2018-11-09 21:06] LABS: BASOPHILS % (AUTO) 0.3 %; EOSINOPHILS % (AUTO) 0.2 %; LYMPHOCYTES % (AUTO) 1.6 %; MEAN CORPUSCULAR VOLUME 87.9 fL (80.0-94.0); NEUTROPHILS % (AUTO) 93.9 %; PLT - PLATELET COUNT 168 10^3/uL (130-450); RED BLOOD COUNT 4.41 10^6/uL (4.70-6.10); WHITE BLOOD COUNT 17.9 x10^3/uL (4.8-10.8)
[2018-11-09 21:11] LABS: ALBUMIN 3.4 g/dL (3.2-5.5); ALBUMIN/GLOBULIN RATIO 1.3 (1.0-2.2); BILIRUBIN,TOTAL 0.8 mg/dL (0.2-1.0); CALCIUM 8.7 mg/dL (8.5-10.3); CREATININE 0.8 mg/dL (0.6-1.2)
[2018-11-09 21:14] LABS: TROPONIN I < 0.04 ng/mL (<0.49)
--- NOTE | 2018-11-09 21:21 | XRAY Report ---
Reason: fever, dyspnea, cough Procedure Date: 11/09/2018 Accession Number: [id number] / [id number] Procedure: XR - Chest 2 View X-Ray CPT Code: 73160 FULL RESULT: EXAM: CHEST RADIOGRAPHY EXAM DATE: 11/09/2018 09:10 PM. CLINICAL HISTORY: Fever. Dyspnea. Cough. COMPARISON: CHEST 2 VIEW PA/LAT 04/06/2018 11:49 AM. TECHNIQUE: 2 views. FINDINGS: Lungs/Pleura: Increased ill-defined opacities in the lateral mid lungs in the right base. Chronic blunting of the right costophrenic angle. Chronic right apical pleural thickening with tracheal deviation. No sign of pneumothorax or left effusion. Mediastinum: Prior CABG. Normal heart size. Other: No compression fracture is. IMPRESSION: Bilateral peripheral mid lung and anterior right base infiltrates. RADIA
--- NOTE | 2018-11-09 21:25 | CT Report ---
Reason: fell, hit head, on Plavix Procedure Date: 11/09/2018 Accession Number: [id number] / [id number] Procedure: CT - HEAD WO CPT Code: FULL RESULT: EXAM: CT HEAD EXAM DATE: 11/09/2018 08:59 PM. CLINICAL HISTORY: Fell, hit head, on Plavix. COMPARISON: HEAD W/O 11/04/2017 4:27 AM. TECHNIQUE: Multiaxial CT images were obtained from the foramen magnum to the vertex. Reformats: Sagittal and coronal. IV contrast: None. In accordance with CT protocol optimization, one or more of the following dose reduction techniques were utilized for this exam: automated exposure control, adjustment of mA and/or KV based on patient size, or use of iterative reconstructive technique. FINDINGS: Parenchyma: No intraparenchymal hemorrhage. No evidence of mass, midline shift or CT findings of acute territorial infarction. Haddad-white differentiation is distinct. Extraaxial Spaces: No subdural or epidural collections identified. Ventricles: No hydrocephalus Sinuses: Small amount of fluid in the right maxillary sinus. Bones: No evidence of acute fracture or calvarial defect. Other: None. IMPRESSION: No acute intracranial abnormalities. RADIA
[2018-11-09] MEDS ORDERED: VANCOMYCIN INJ 1.25 GM in SODIUM CHLORIDE 0.9% 250 ML IV STA (21:41)
[2018-11-09] MEDS ORDERED: CEFEPIME 2 GM in SODIUM CHLORIDE 0.9% MINIBAG 100 ML IV STA (21:41)
[2018-11-09] MEDS ORDERED: SODIUM CHLORIDE 0.9% 1,000 ML IV STA (21:49)
[2018-11-09] MEDS ORDERED: ZOLPIDEM 5 MG TABLET PO PRN (21:59)
[2018-11-09] MEDS ORDERED: PROMETHAZINE 25 MG/1 ML VIAL IM PRN (21:59)
[2018-11-09] MEDS ORDERED: oxyCODONE 5 MG TABLET PO PRN (21:59)
[2018-11-09] MEDS ORDERED: ONDANSETRON 4 MG/2 ML VIAL IVP PRN (21:59)
[2018-11-09] MEDS ORDERED: IBUPROFEN 600 MG TABLET PO PRN (21:59)
[2018-11-09] MEDS ORDERED: PROCHLORPERAZINE 10 MG/2 ML VIAL IVP PRN (21:59)
[2018-11-09] MEDS ORDERED: IPRATROPIUM/ALBUTEROL 3 ML NEB INH PRN (21:59)
[2018-11-09] MEDS ORDERED: SODIUM CHLORIDE 0.9% 1,000 ML IV SCH (22:00)
[2018-11-09 22:02] LABS: ABNORMAL LYMPHS % (MANUAL) 0 %; BAND NEUTROPHILS % (MANUAL) 22 %; DIFFERENTIAL COMMENT MANUAL DIFFERENTIAL; LYMPHOCYTES # (MANUAL) 0.2 10^3/uL (1.5-3.5); LYMPHOCYTES % (MANUAL) 1 %; MONOCYTES # (MANUAL) 1.1 10^3/uL (0.0-1.0); NEUTROPHILS # (MANUAL) 16.6 10^3/uL (1.5-6.6); NEUTROPHILS % (MANUAL) 71 %; PLATELET ESTIMATE, MANUAL NORMAL (130-450,000) (NORMAL); PLATELET MORPHOLOGY NORMAL APPEARANCE (NORMAL); RBC MORPHOLOGY (MULTIPLE) NORMAL APPEARANCE (NORMAL)
[2018-11-09 22:20] LABS: BILIRUBIN,URINE NEGATIVE (NEGATIVE); GLUCOSE, URINE (UA) NEGATIVE (NEGATIVE); KETONES,URINE (UA) NEGATIVE (NEGATIVE); LEUKOCYTE ESTERASE, URINE NEGATIVE (NEGATIVE); NITRITE,URINE NEGATIVE (NEGATIVE); OCCULT BLOOD,URINE TRACE-LYSE (NEGATIVE); PH,URINE 6.5 PH (5.0-7.5); PROTEIN,URINE NEGATIVE (NEGATIVE); UROBILINOGEN,URINE 0.2 (NORMAL) E.U./dL (NORMAL)
[2018-11-09 22:24] LABS: CLARITY,URINE CLEAR (CLEAR)
--- NOTE | 2018-11-09 22:34 | HISTORY & PHYSICAL EXAMINATION ---
Chief Complaint - Chief Complaint Chief Complaint: Generalized weakness History of Present Illness - Admitted From Admitted From:: Emergency Department - History Obtained From Records Reviewed: Yes History obtained from: Patient Exam Limitations: None - History of Present Illness HPI Comment/Other: Patient is a very pleasant 73-year-old gentleman past medical history significant for coronary artery disease status post 14 stents most recent stent in July 2018 on Plavix and aspirin, insulin-dependent diabetes mellitus type 2, hypertension, hyperlipidemia, congestive heart failure with unknown ejection fraction, Obstructive sleep apnea on CPAP and COPD who presented to the emergency department with a chief complaint of generalized weakness. The patient states that he was in his normal state of health until a couple of weeks ago when he states that he began having coughing spells, felt as though his chest was congested and was short of breath with exertion. The patient states that at that time he also was feeling chest pain with deep inspirations. He also complained of having body aches and fevers. He states although he was feeling very sick unfortunately his was also sick and was hospitalized at [facility] and recently . He states that due to everything that was going on in his life he did not get a chance to see the doctor. He states that for a little while his symptoms seem to improve but then over the last few days he has felt increasingly weak. 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 He states that he had to go to the bathroom so he somehow was able to manage to get out of the bed and then held onto the harmon to get into the bathroom. He states that once he got up to the bathroom he was shaking and had chills. He ended up urinating all over the floor. He states that he slipped on the urine and fell and hit his head on the toilet. He states that he tried to get up and fell again and hit his head on the toilet once again. He states that he did not lose consciousness but was on the floor for 2- 3 hours before he was finally able to crawl to a phone and contact his daughter. The patient's daughter then called EMS who came to the patient's home. The patient does admit to a headache but denies any focal neurologic deficits. He states that he remembers the entire incident from this morning. He denies any blurred vision. He states that he did have some chest pain yesterday but it has resolved. He also states that he feels nauseated but denies vomiting. The patient admits to continued shortness of breath with exertion and a dry cough. The patient also states that he has lost 10-15 pounds since his as he has not been eating well and has been feeling very depressed. The patient denies any runny nose, sore throat, nasal congestion, difficulty swallowing, orthopnea, PND, increased lower extremity swelling, abdominal pain, diarrhea, constipation, urinary urgency, urinary frequency, dysuria, joint swelling, joint pain, back pain, neck stiffness, skin rash, skin changes, dizziness, lightheadedness, syncope, night sweats or any changes in his appetite. On presentation to the emergency department the patient was febrile with a low- grade temperature of 37.9, tachycardic with a heart rate of 107 and had relative hypotension with blood pressure as low as 97/67. The patient was also found to be hypoxic with oxygen saturation down to 91% on room air. The patient was placed on 2 L of oxygen. The patient's initial lab work revealed a leukocytosis with a white blood cell count of 17.9, bandemia with 22% bands and an elevated lactic acid of 2.8. The patient's blood glucose was also elevated at 207. The patient's urinalysis was negative and influent a and B were negative. The patient's chest x-ray revealed bilateral peripheral midlung and anterior right base infiltrates. Patient also had a CT of his head given his fall which showed no acute fracture or bleed. The patient's EKG showed sinus tachycardia with no ST elevations or acute ischemic changes. The patient's troponin was negative. The patient's pneumonia severity index score was 91 which puts him at risk class IV with 8.2-9.3% mortality. Based on the score hospitalization is recommended. The patient was admitted to the medical so with sepsis due to community- acquired pneumonia. In the emergency department the patient received IV vancomycin and cefepime for treatment of his pneumonia. History - Past Medical History Cardiovascular: reports: Congestive heart failure, Hypertension, Coronary artery disease (10 stents with bypass surgery in the past. He then had a chest pain in October 2016 and sent to [facility]. He was discharged adn 2 days later his Child Care Sitter at [place] had 2 more stents placed and while on the table coded. ), [place], Arrhythmia, Valve disorder Respiratory: reports: Shortness of breath, Sleep apnea (mild), CPAP use Neuro: reports: None Endocrine/Autoimmune: reports: Type 2 diabetes (Seen on colonoscopy July 2015 on insulin, complicated by severe neuropathy) GI: reports: GERD, Ulcers, Colon polyps, Chronic constipation, Diverticulitis, Other HEENT: reports: Other (Left upper jaw fracture after a tooth removal) Psych: reports: None Musculoskeletal: reports: Osteoarthritis, Fibromyalgia, Rheumatoid arthritis Derm: reports: Other MRSA Hx?: No - Past Surgical History General: reports: Other Cardiovascular: reports: Coronary stent, Other - Family & Social History Family History Comment/Other: Dad at 59 of stroke, he was an alcoholic. Mom at 62 of lung cancer. 1 half brother is alive. 3 kids: daughter of enlarged heart and failure 1.5 years ago. Other 2 sons are healthy. Living arrangement: At home Living Situation: Alone Social History Notes: He was born in [place] but moved to [place] when his dad went back to his family. Lived in [place] all of his life until he enrolled into the [employer] when he graduated from high school. 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 Did that until fpc when he moved to [facility]. He [place] and was living with his until a few weeks ago when she . When his daughter , they were taking care of their grandson. The grandson has Tourette's, developmental delay. He still considers himself independent with his activities of daily living, drives a car, and slowly gets all of his work done around the house. No history of alcohol abuse. No recreational substance abuse. Smoked in the past. - Substance History Use: Uses substance without health or social issues: NONE - POLST Patient has POLST: Yes POLST Status: Full Code Meds/Allgy - Home Medications Home Medications: Ambulatory Orders Medication Instructions Recorded Confirmed Amitriptyline [Elavil] 25 mg PO HS 06/09/13 11/09/18 HYDROcod/ACETAM 5/325 [Biddle 5/325] 1 tab PO QID PRN 06/09/13 11/09/18 Insulin Glargine,Hum.rec.anlog 40 unit SQ QPM 06/09/13 11/09/18 [Lantus] Metformin HCl [Metformin HCl ER] 1,000 mg PO BID 06/09/13 11/09/18 Mometasone Furoate [Nasonex] 2 spray KILLIAN BID 06/09/13 11/09/18 Multivitamin [Multi-Vitamin Daily] 1 each PO DAILY 06/09/13 11/09/18 Nitroglycerin [Nitrostat] 0.4 mg SL Q5MIN PRN 06/09/13 11/09/18 clonazePAM [Klonopin] 0.5 mg PO HS 06/09/13 11/09/18 Ascorbic Acid [Vitamin C] 1,000 mg PO DAILY 07/05/15 11/09/18 Ezetimibe [Zetia] 10 mg PO DAILY PM 02/25/16 11/09/18 Atorvastatin Calcium [Lipitor] 80 mg PO QPM 04/23/17 11/09/18 Clopidogrel [Plavix] 75 mg PO DAILY 04/23/17 11/09/18 Pantoprazole [Protonix] 40 mg PO QDAC 04/23/17 11/09/18 amLODIPine [Norvasc] 5 mg PO QPM 04/23/17 11/09/18 Isosorbide Dinitrate 20 mg PO BID 05/24/17 11/09/18 Albuterol Sulfate [Proair Hfa 2 puffs INH Q4H PRN 03/31/18 11/09/18 Inhaler] Aspirin [Aspirin EC] 81 mg PO DAILY 03/31/18 11/09/18 Furosemide 20 mg PO DAILY 03/31/18 11/09/18 Gabapentin 300 mg PO BID 03/31/18 11/09/18 Glipizide [Glipizide ER] 5 mg PO DAILY 03/31/18 11/09/18 Gluc/Devin-MSM#1/Vit C/Blane/Bor 1 each PO BID 03/31/18 11/09/18 [Uyuxpci-Ljgpx-CGU Complex Cplt] Magnesium Oxide [Magnesium] 500 mg PO DAILY 03/31/18 11/09/18 Metoprolol Tartrate [Lopressor] 50 mg PO TID 03/31/18 11/09/18 - Allergies Allergies/Adverse Reactions: Allergies Allergy/AdvReac Type Severity Reaction Status Date / Time amiodarone Allergy Severe Anaphylaxis Verified 11/09/18 20:09 levodopa Allergy Severe Nausea Verified 11/09/18 20:09 venom-honey bee Allergy Severe Edema/Light Verified 11/09/18 20:09 [bee venom (honey bee)] headed carbidopa Allergy Nausea Verified 11/09/18 20:09 moxifloxacin HCl * AdvReac Severe GI upset Verified 11/09/18 20:09 [From Avelox] Review of Systems - Other Findings Other Findings: A comprehensive review of systems was performed the pertinent positives and negatives are stated above in the HPI and the remainder of the review of systems is negative. Prior Level of Functionality: Patient lives independently at home. He recently lost his and seems to struggle with making his own meals and getting adequate nutrition. Otherwise he is independent with all his activities of daily living. Exam - Vital Signs Reviewed Vital Signs: Yes Vital Signs: Vital Signs x48h Temp Pulse Resp BP Pulse Ox 11/09/18 21:18 98 18 97/67 95 11/09/18 20:20 18 11/09/18 20:06 37.9 C H 107 H 18 109/90 H 91 L - Physical Exam General Appearance: positive: No acute distress, Alert, Other (Cachectic appearing) Eyes Bilateral: positive: Normal inspection, PERRL, EOMI, No lid inflammation, Conjunctivae nml, No scleral icterus ENT: positive: ENT inspection nml, Pharynx nml, Dry mucous membranes. negative: Purulent nasal drainage, Pharyngeal erythema, Oral lesions Neck: positive: Nml inspection, Thyroid nml, No JVD, Trachea midline. negative: Lymphadenopathy (R), Lymphadenopathy (L), Stiff neck, Carotid bruit, Tracheal deviation Respiratory: positive: Chest non-tender, Rales (Crackles at the bases.), Rhonchi (Rhonchi heard in right lower lung and mid lung bilaterally.) Cardiovascular: positive: No murmur, No gallop, Tachycardia Peripheral Pulses: positive: 2+ Abdomen: positive: Non-tender, No organomegaly, Nml bowel sounds, No distention. negative: Guarding, Rebound, Hepatomegaly Back: positive: Nml inspection. negative: CVA tenderness (R), CVA tenderness (L) Skin: positive: Color nml, No rash, Warm. negative: Cyanosis, Diaphoresis, Pal elma, Skin rash Extremities: positive: Non-tender, Full ROM, Nml appearance, No pedal edema Neurologic/Psychiatric: positive: Oriented x3, CN's nml (2-12), Motor nml, Sensation nml, Mood/affect nml Sepsis Event Note (H) - Evaluation Current Stage of Sepsis: Sepsis Possible source of Sepsis: positive: Pulmonary - Sepsis Criteria Sepsis Criteria: Recorded Heart Rate greater than 90 bpm, Respiratory: Increasing oxygen requirements, WBC count greater than 10% bands, WBC count greater than 12,000 or less than 4000, Metabolic: lactate > 2 mmol/L Conclusion/Plan - Problem List (1) Severe sepsis Conclusion/Plan: Patient presented to the emergency department with generalized weakness, fever with temperature of 37.9, tachycardia with heart rate 107, borderline hypotension with blood pressure of 97/67, hypoxia with oxygen saturation down to 91% on room air, leukocytosis with WBC of 17.9 and bandemia with 22% bands as well as an elevated lactic acid of 2.8. Source found to be pneumonia as chest x-ray showed bilateral peripheral midlung and anterior right base infiltrates. In the emergency department the patient received 1 L bolus of IV fluid and broad-spectrum IV antibiotics with vancomycin and cefepime Plan: Given patient's history of CHF and unknown ejection fraction we will continue IV fluid but only at 100 mL's per hour as patient's blood pressure appears to be stable Given the source appears to be community acquired pneumonia we will de-escalate antibiotics to IV ceftriaxone and azithromycin Blood cultures were obtained in the emergency department and we will follow-up (2) CAP (community acquired pneumonia) Conclusion/Plan: Patient presented with severe sepsis Source found to be community acquired pneumonia Chest x-ray shows bilateral peripheral midlung and anterior right base infiltrates Patient given IV vancomycin and cefepime in the emergency department Blood cultures and sputum cultures pending Patient will be treated with IV ceftriaxone and azithromycin given this appears to be community acquired pneumonia Influenza A and B negative Patient requiring 2 L of oxygen Qualifiers: Laterality: right (3) Type 2 diabetes mellitus with hyperglycemia Conclusion/Plan: Patient has history of diabetes and presented with hyperglycemia with blood glucose of 207 on presentation. Blood glucose is likely elevated in the setting of sepsis. Patient will be continued on home dose of Lantus Place patient on carb controlled diet Patient will be placed on sliding scale insulin Hold metformin and glipizide Check hemoglobin A1c Qualifiers: Diabetes mellitus retirement insulin use: with retirement use Qualified Code(s): E11.65 - Type 2 diabetes mellitus with hyperglycemia; Z79.4 - [facility] (current) use of insulin (4) Congestive heart failure Conclusion/Plan: The patient has a history of congestive heart failure with unknown ejection fraction The patient does not appear to be in acute exacerbation but does have crackles at the bases. The patient appears to be dry on examination likely secondary to severe sepsis. Patient given IV fluid bolus in the emergency department and continued on maintenance fluid. We will be gentle with hydration given his history of CHF. Placed on telemetry Check echocardiogram Monitor BNP Qualifiers: Heart failure type: unspecified Heart failure chronicity: chronic Qualified Code(s): I50.9 - Heart failure, unspecified (5) COPD (chronic obstructive pulmonary disease) Conclusion/Plan: Patient has a history of COPD and uses an albuterol inhaler at home. The patient does not have wheezing on exam and does not appear to be in COPD exacerbation. Patient will be placed on albuterol nebs as needed. Qualifiers: COPD type: unspecified COPD Qualified Code(s): J44.9 - Chronic obstructive pulmonary disease, unspecified (6) History of coronary artery disease Conclusion/Plan: The patient has a history of CAD status post 14 stents. The patient's most recent stent was in July 2018. The patient is on aspirin, Plavix, metoprolol and a statin. We will continue the patient's aspirin and Plavix as well as statin. Telemetry monitoring Echocardiogram EKG showed no acute ischemic changes and troponin was negative. (7) Hyperlipidemia Conclusion/Plan: Patient is on Zetia which will be continued while he is hospitalized. Stable Qualifiers: Hyperlipidemia type: unspecified Qualified Code(s): E78.5 - Hyperlipidemia, unspecified (8) Hypertension Conclusion/Plan: The patient has a history of hypertension but on presentation patient has severe sepsis and is borderline hypotensive. We will hold antihypertensives for now. Will monitor patient's blood pressure and restart antihypertensives when necessary. Qualifiers: Hypertension type: essential hypertension Qualified Code(s): I10 - Essential (primary) hypertension (9) JAUN on CPAP Conclusion/Plan: Patient has history of obstructive sleep apnea on CPAP We will continue patient's home CPAP - Lab Results Lab results reviewed: Yes Fish Bones: 11/09/18 20:52 11/09/18 20:52 Other Lab Results: Laboratory Results WBC 17.9 x10^3/uL (4.8-10.8) H 11/09/18 20:52 RBC 4.41 10^6/uL (4.70-6.10) L 11/09/18 20:52 Hgb 12.8 g/dL (14.0-18.0) L 11/09/18 20:52 Hct 38.8 % (42.0-52.0) L 11/09/18 20:52 MCV 87.9 fL (80.0-94.0) 11/09/18 20:52 MCH 29.0 pg (27.0-31.0) 11/09/18 20:52 MCHC 33.0 g/dL (32.0-36.0) 11/09/18 20:52 RDW 15.0 % (12.0-15.0) 11/09/18 20:52 Plt Count 168 10^3/uL (130-450) 11/09/18 20:52 MPV 9.0 fL (7.4-11.4) 11/09/18 20:52 Neut # (Auto) Not Reportable 11/09/18 20:52 Lymph # (Auto) Not Reportable 11/09/18 20:52 Lynn # (Auto) Not Reportable 11/09/18 20:52 Eos # (Auto) Not Reportable 11/09/18 20:52 Baso # (Auto) Not Reportable 11/09/18 20:52 Absolute Nucleated RBC Not Reportable 11/09/18 20:52 Total Counted 100 11/09/18 20:52 Band Neuts % (Manual) 22 % (0-10) H 11/09/18 20:52 Abnorm Lymph % (Manual) 0 % 11/09/18 20:52 Nucleated RBC % Not Reportable 11/09/18 20:52 Neutrophils # (Manual) 16.6 10^3/uL (1.5-6.6) H 11/09/18 20:52 Lymphocytes # (Manual) 0.2 10^3/uL (1.5-3.5) L 11/09/18 20:52 Monocytes # (Manual) 1.1 10^3/uL (0.0-1.0) H 11/09/18 20:52 Eosinophils # (Manual) 0.0 10^3/uL (0-0.7) 11/09/18 20:52 Basophils # (Manual) 0.0 10^3/uL (0-0.1) 11/09/18 20:52 Differential Comment MANUAL DIFFERENTIAL 11/09/18 20:52 Manual Slide Review Indicated 11/09/18 20:52 Platelet Estimate NORMAL (130-450,000) (NORMAL) 11/09/18 20:52 Platelet Morphology NORMAL APPEARANCE (NORMAL) 11/09/18 20:52 RBC Morph Micro Appear NORMAL APPEARANCE (NORMAL) 11/09/18 20:52 Sodium 137 mmol/L (135-145) 11/09/18 20:52 Potassium 3.6 mmol/L (3.5-5.0) 11/09/18 20:52 Chloride 98 mmol/L (101-111) L 11/09/18 20:52 Carbon Dioxide 27 mmol/L (21-32) 11/09/18 20:52 Anion Gap 12.0 (6-13) 11/09/18 20:52 BUN 14 mg/dL (6-20) 11/09/18 20:52 Creatinine 0.8 mg/dL (0.6-1.2) 11/09/18 20:52 Estimated GFR (MDRD) 95 (>89) 11/09/18 20:52 Glucose 207 mg/dL (70-100) H 11/09/18 20:52 Lactic Acid 2.8 mmol/L (0.5-2.2) H 11/09/18 20:52 Calcium 8.7 mg/dL (8.5-10.3) 11/09/18 20:52 Total Bilirubin 0.8 mg/dL (0.2-1.0) 11/09/18 20:52 AST 29 IU/L (10-42) 11/09/18 20:52 ALT 19 IU/L (10-60) 11/09/18 20:52 Alkaline Phosphatase 66 IU/L (42-121) 11/09/18 20:52 Total Creatine Kinase 192 IU/L (22-269) 11/09/18 20:52 CK-MB (CK-2) 3.0 ng/mL (0.6-6.3) 11/09/18 20:54 Troponin I < 0.04 ng/mL (<0.49) 11/09/18 20:54 B-Natriuretic Peptide 379 pg/mL (5-100) H 11/09/18 20:52 Total Protein 6.0 g/dL (6.7-8.2) L 11/09/18 20:52 Albumin 3.4 g/dL (3.2-5.5) 11/09/18 20:52 Globulin 2.6 g/dL (2.1-4.2) 11/09/18 20:52 Albumin/Globulin Ratio 1.3 (1.0-2.2) 11/09/18 20:52 Lipase 20 U/L (22-51) L 11/09/18 20:52 Urine Color YELLOW 11/09/18 10:12 Urine Clarity CLEAR (CLEAR) 11/09/18 10:12 Urine pH 6.5 PH (5.0-7.5) 11/09/18 10:12 Ur Specific Eldridge <=1.005 (1.002-1.030) 11/09/18 10:12 Urine Protein NEGATIVE mg/dL (NEGATIVE) 11/09/18 10:12 Urine Glucose (UA) NEGATIVE mg/dL (NEGATIVE) 11/09/18 10:12 Urine Ketones NEGATIVE mg/dL (NEGATIVE) 11/09/18 10:12 Urine Occult Blood TRACE-LYSE (NEGATIVE) 11/09/18 10:12 Urine Nitrite NEGATIVE (NEGATIVE) 11/09/18 10:12 Urine Bilirubin NEGATIVE (NEGATIVE) 11/09/18 10:12 Urine Urobilinogen 0.2 (NORMAL) E.U./dL (NORMAL) 11/09/18 10:12 Ur Leukocyte Esterase NEGATIVE (NEGATIVE) 11/09/18 10:12 Ur Microscopic Review NOT INDICATED 11/09/18 10:12 Urine Culture Comments NOT INDICATED 11/09/18 10:12 Influenza A (Rapid) Negative (Negative) 11/09/18 21:13 Influenza B (Rapid) Negative (Negative) 11/09/18 21:13 - Diagnostic Imaging Results Diagnostic Imaging Results: positive: Final report reviewed Diagnostic Imaging Results Comments: CT head Impression: No acute intracranial abnormalities. Chest x-ray Impression: Bilateral peripheral midlung and anterior right base infiltrates. - EKG Results EKG Interpreted Independently: Yes EKG Findings: No ST elevations or ischemic changes noted. Core Measures - Anticipated LOS I expect patient to be DC'd or transferred within 96 hours.: Yes - DVT/VTE - Prophylaxis VTE/DVT Prophylaxis med ordered at admit?: Yes
[2018-11-09] MEDS ORDERED: SODIUM CHLORIDE 0.9% 500 ML IV SCH (22:50)
[2018-11-09] MEDS ORDERED: WATER FOR INJECTION,STERILE 20 ML ONE ×2 (23:51→23:56)
[2018-11-10] MEDS ORDERED: VANCOMYCIN 1 GM VIAL ONE (00:08)
[2018-11-10] MEDS ORDERED: WATER FOR INJECTION,STERILE 20 ML ONE ×2 (00:09→00:10)
[2018-11-10] MEDS: EZETIMIBE 10 MG TABLET PO SCH ×2 (00:22→20:21)
[2018-11-10] MEDS: METOPROLOL TARTRATE 50 MG TABLET PO SCH ×2 (00:23→06:47)
[2018-11-10] MEDS: SODIUM CHLORIDE FLUSH 0.9% 10 ML SYRINGE IVP SCH ×3 (00:24→17:39)
[2018-11-10] MEDS: oxyCODONE 5 MG TABLET PO PRN ×4 (01:02→18:06)
[2018-11-10 06:36] LABS: HGB - HEMOGLOBIN 11.8 g/dL (14.0-18.0); NEUTROPHILS # (AUTO) 12.9 10^3/uL (1.5-6.6); WHITE BLOOD COUNT 14.6 x10^3/uL (4.8-10.8)
[2018-11-10 06:45] LABS: BASOPHILS % (AUTO) 0.2 %; LYMPHOCYTES # (AUTO) 0.7 10^3/uL (1.5-3.5); LYMPHOCYTES % (AUTO) 4.8 %; MEAN CORPUSCULAR HEMOGLOBIN 29.1 pg (27.0-31.0); MEAN PLATELET VOLUME 9.1 fL (7.4-11.4); MONOCYTES % (AUTO) 6.5 %; NEUTROPHILS % (AUTO) 88.5 %; PLT - PLATELET COUNT 152 10^3/uL (130-450); RED BLOOD COUNT 4.06 10^6/uL (4.70-6.10); RED CELL DISTRIBUTION WIDTH 15.7 % (12.0-15.0)
[2018-11-10 07:11] LABS: ALBUMIN 2.9 g/dL (3.2-5.5); ALBUMIN/GLOBULIN RATIO 1.2 (1.0-2.2); ALKALINE PHOSPHATASE 59 IU/L (42-121); ALT ALANINE AMINOTRANSFERASE 19 IU/L (10-60); AST ASPARTATE AMINOTRANSFERASE 27 IU/L (10-42); BILIRUBIN,TOTAL 0.9 mg/dL (0.2-1.0); BUN - BLOOD UREA NITROGEN 15 mg/dL (6-20); CALCIUM 7.8 mg/dL (8.5-10.3); CARBON DIOXIDE - CO2 26 mmol/L (21-32); CHLORIDE 99 mmol/L (101-111); CREATININE 0.8 mg/dL (0.6-1.2); GFR - MDRD 95 (>89); GLUCOSE 243 mg/dL (70-100); MAGNESIUM 1.7 mg/dL (1.7-2.8); PHOSPHORUS 3.4 mg/dL (2.5-4.6); SODIUM 135 mmol/L (135-145); TOTAL PROTEIN 5.3 g/dL (6.7-8.2)
[2018-11-10 07:18] LABS: HB2 TOTAL 12.5 g/dL; HEMOGLOBIN A1C 1.05 g/dL; HEMOGLOBIN A1C % 9.8 % (4.6-6.2)
[2018-11-10 07:24] LABS: VBG PH 7.506 (7.31-7.41)
[2018-11-10 08:30] LABS: IRON < 6 ug/dL (45-182); PREALBUMIN 13 mg/dL (18-45); TOTAL IRON BINDING CAPACITY 210 ug/dL (250-450); TRANSFERRIN 150 mg/dL (180-329)
[2018-11-10] MEDS ORDERED: AZITHROMYCIN INJ 500 MG in SODIUM CHLORIDE 0.9% 250 ML IV SCH (09:00)
[2018-11-10] MEDS ORDERED: ISOSORBIDE DINITRATE 10 MG TABLET PO SCH (09:00)
[2018-11-10] MEDS: INSULIN ASPART 300 UNIT/3 ML PEN SUBQ SCH ×4 (09:22→20:21)
[2018-11-10] MEDS: cefTRIAXone 2 GM in SODIUM CHLORIDE 0.9% MINIBAG 100 ML IV SCH (09:36)
[2018-11-10] MEDS: ASCORBIC ACID CHEW 500 MG TABLET PO SCH (09:37)
[2018-11-10] MEDS: CLOPIDOGREL 75 MG TABLET PO SCH (09:38)
[2018-11-10] MEDS: MAGNESIUM OXIDE 400 MG TABLET PO SCH (09:38)
[2018-11-10] MEDS: MULTIVITAMIN TABLET PO SCH (09:38)
[2018-11-10] MEDS: GABAPENTIN 300 MG CAPSULE PO SCH ×2 (09:38→20:21)
[2018-11-10] MEDS: ASPIRIN EC 81 MG TABLET PO SCH (09:38)
[2018-11-10] MEDS: POLYETHYLENE GLYCOL 3350 17 GM PACKET PO SCH (09:39)
[2018-11-10] MEDS: FAMOTIDINE 20 MG TABLET PO SCH ×2 (09:39→20:20)
[2018-11-10] MEDS: ENOXAPARIN 40 MG/0.4 ML SYRINGE SUBQ SCH (09:40)
[2018-11-10] MEDS: MEGESTROL 400 MG/10 ML UDC PO SCH (09:40)
[2018-11-10] MEDS: SODIUM CHLORIDE FLUSH 0.9% 10 ML SYRINGE IVP PRN (09:41)
[2018-11-10] MEDS: ACETAMINOPHEN 325 MG TABLET PO PRN ×2 (10:09→18:07)
[2018-11-10] MEDS: MOMETASONE FUROATE NAS SCH ×2 (10:11→22:14)
[2018-11-10] MEDS ORDERED: SODIUM CHLORIDE 0.9% 1,000 ML IV SCH (11:44)
--- NOTE | 2018-11-10 11:53 | PROVIDER PROGRESS NOTE ---
Subjective - Prog Note Date Prog Note Date: 11/10/18 Prog Note Time: 11:51 - Subjective Pt reports feeling: Worse (Patient became hypotensive after administration of azithromycin. Generalized weakness and somewhat short of breath along with physical deconditioning noted) Subjective: Patient felt with headaches and was hypotensive after administration of azithromycin without maculopapular rashes, diarrhea, abdominal pain, joint tenderness or other GI or symptoms. Current Medications - Current Medications Current Medications: Active Medications Acetaminophen (Tylenol) 650 mg PO Q4HR PRN PRN Reason: Pain 1 to 4 Last Admin: 11/10/18 10:09 Dose: 650 mg Acetaminophen/Butalbital/Caffeine (Fioricet) 1 tab PO Q4HR PRN PRN Reason: HEADACHE Albuterol/Ipratropium (Duoneb) 3 ml INH RTQ4H PRN PRN Reason: Wheezing Amitriptyline HCl (Elavil) 25 mg PO HS [facility] Ascorbic Acid (Vitamin C) 1,000 mg PO DAILY [facility] Last Admin: 11/10/18 09:37 Dose: 1,000 mg Aspirin (Ecotrin) 81 mg PO DAILY [facility] Last Admin: 11/10/18 09:38 Dose: 81 mg Atorvastatin Calcium (Lipitor) 80 mg PO QPM [facility] Clonazepam (Klonopin) 0.5 mg PO HS [facility] Clopidogrel Bisulfate (Plavix) 75 mg PO DAILY [facility] Last Admin: 11/10/18 09:38 Dose: 75 mg Ezetimibe (Zetia) 10 mg PO QPM [facility] Last Admin: 11/10/18 00:22 Dose: 10 mg Enoxaparin Sodium (Lovenox) 40 mg SUBQ DAILY [facility] Last Admin: 11/10/18 09:40 Dose: 40 mg Famotidine (Pepcid) 20 mg PO BID [facility] Last Admin: 11/10/18 09:39 Dose: 20 mg Gabapentin (Neurontin) 300 mg PO BID [facility] Last Admin: 11/10/18 09:38 Dose: 300 mg Azithromycin 500 mg/ Sodium (Chloride) 250 mls @ 250 mls/hr IV DAILY [facility] Last Infusion: 11/10/18 10:00 Dose: Infused Ceftriaxone Sodium 2 gm/ (Sodium Chloride) 100 mls @ 200 mls/hr IV DAILY [facility] Last Infusion: 11/10/18 10:11 Dose: Infused Ferric Sodium Gluconate Complex 125 mg/ Sodium Chloride 110 mls @ 100 mls/hr IV DAILY [facility] Stop: 11/12/18 12:00 Sodium Chloride (Normal Saline 0.9%) 1,000 mls @ 250 mls/hr IV .Q4H [facility] Stop: 11/10/18 15:43 Ibuprofen (Motrin) 600 mg PO Q6HR PRN PRN Reason: Pain 1 to 4 Insulin Aspart (Novolog) 1 - 5 unit SUBQ 0800,1200,1700,2100 [facility]; Protocol Last Admin: 11/10/18 09:22 Dose: Not Given Insulin Glargine (Lantus Solostar) 20 unit SUBQ QPM [facility] Magnesium Oxide (Mag Ox) 400 mg PO DAILY [facility] Last Admin: 11/10/18 09:38 Dose: 400 mg Megestrol Acetate (Megace) 400 mg PO DAILY [facility] Last Admin: 11/10/18 09:40 Dose: 400 mg Mirtazapine (Remeron) 7.5 mg PO QPM [facility] Multivitamins (Theragran) 1 tab PO DAILY [facility] Last Admin: 11/10/18 09:38 Dose: 1 tab Nitroglycerin (Nitrostat) 0.4 mg SL Q5MIN PRN PRN Reason: Chest Pain Ondansetron HCl (Zofran Inj) 4 mg IVP Q6HR PRN PRN Reason: Nausea / Vomiting Oxycodone HCl (Roxicodone) 5 mg PO Q4HR PRN PRN Reason: Pain 5 to 7 Last Admin: 11/10/18 10:09 Dose: 5 mg Oxycodone HCl (Roxicodone) 10 mg PO Q4HR PRN PRN Reason: Pain 8 to 10 Pantoprazole Sodium (Protonix) 40 mg PO QDAC [facility] Patient Own Med ( Mometasone Furoate [ Nasonex] 2 [place]) 2 each KILLIAN BID [facility] Last Admin: 11/10/18 10:11 Dose: Not Given Polyethylene Glycol (Miralax) 17 gm PO DAILY [facility] Last Admin: 11/10/18 09:39 Dose: 17 gm Prochlorperazine Edisylate (Compazine Inj) 10 mg IVP Q6HR PRN PRN Reason: Nausea / Vomiting Promethazine HCl (Phenergan Inj) 25 mg IM Q6HR PRN PRN Reason: Nausea / Vomiting Sodium Chloride (Normal Saline Flush 0.9%) 10 ml IVP PRN PRN PRN Reason: NEEDED PER PROVIDER ORDERS Last Admin: 11/10/18 09:41 Dose: 10 ml Sodium Chloride (Normal Saline Flush 0.9%) 10 ml IVP 0100,0900,1700 [facility] Last Admin: 11/10/18 09:41 Dose: 10 ml Zolpidem Tartrate (Ambien) 5 mg PO QPM PRN PRN Reason: Insomnia Amitriptyline [Elavil] 25 mg PO HS 06/09/13 HYDROcod/ACETAM 5/325 [[place] 5/325] 1 tab PO QID PRN 06/09/13 Insulin Glargine,Hum.rec.anlog [Lantus] 40 unit SQ QPM 06/09/13 Metformin HCl [Metformin HCl ER] 1,000 mg PO BID 06/09/13 Mometasone Furoate [Nasonex] 2 spray KILLIAN BID 06/09/13 Multivitamin [Multi-Vitamin Daily] 1 each PO DAILY 06/09/13 Nitroglycerin [Nitrostat] 0.4 mg SL Q5MIN PRN 06/09/13 clonazePAM [Klonopin] 0.5 mg PO HS 06/09/13 Ascorbic Acid [Vitamin C] 1,000 mg PO DAILY 07/05/15 Ezetimibe [Zetia] 10 mg PO DAILY PM 02/25/16 Atorvastatin Calcium [Lipitor] 80 mg PO QPM 04/23/17 Clopidogrel [Plavix] 75 mg PO DAILY 04/23/17 Pantoprazole [Protonix] 40 mg PO QDAC 04/23/17 amLODIPine [Norvasc] 5 mg PO QPM 04/23/17 Isosorbide Dinitrate 20 mg PO BID 05/24/17 Albuterol Sulfate [Proair Hfa Inhaler] 2 puffs INH Q4H PRN 03/31/18 Aspirin [Aspirin EC] 81 mg PO DAILY 03/31/18 Furosemide 20 mg PO DAILY 03/31/18 Gabapentin 300 mg PO BID 03/31/18 Glipizide [Glipizide ER] 5 mg PO DAILY 03/31/18 Gluc/Devin-MSM#1/Vit C/Blane/Bor [[place]-Yzieq-CJJ Complex Cplt] 1 each PO BID 03/31/18 Magnesium Oxide [Magnesium] 500 mg PO DAILY 03/31/18 Metoprolol Tartrate [Lopressor] 50 mg PO TID 03/31/18 Objective - Vital Signs/Intake & Output Reviewed Vital Signs: Yes Vital Signs: Vital Signs x48h Temp Pulse Resp BP Pulse Ox 11/10/18 11:30 87 16 90/42 L 11/10/18 11:22 84 16 92/41 L 11/10/18 11:14 16 77/41 L 11/10/18 11:10 37 C 82 16 80/42 L 96 11/10/18 08:00 36.7 C 94 15 114/56 L 93 11/10/18 06:33 36.6 C 92 18 119/55 L 95 Intake & Output: Intake & Output 11/07/18 11/08/18 11/09/18 11/10/18 23:59 23:59 23:59 23:59 Intake Total 1100 1045 Output Total 350 Balance 1100 695 - Objective General Appearance: positive: Alert, Mild distress, Anxious, Other (Physical deconditioned) Eyes Bilateral: positive: PERRL, EOMI, Conjunctivae nml ENT: positive: Pharynx nml, No signs of dehydration. negative: Pharyngeal erythema Neck: positive: Nml inspection, Thyroid nml, No JVD, Trachea midline. negative: Thyromegaly Respiratory: positive: Chest non-tender, No respiratory distress, Rales (Scattered bibasilar rales), Rhonchi. negative: Wheezes Cardiovascular: positive: Regular rate & rhythm, No murmur, No gallop. negative: JVD present, Systolic murmur, Diastolic murmur Peripheral Pulses: 2+ Dorsalis pedis (R), 2+ Dorsalis pedis (L) Abdomen: positive: Non-tender, No organomegaly, Nml bowel sounds, No distention. negative: Tenderness Back: positive: Nml inspection Skin: positive: Color nml, No rash, Warm Extremities: positive: Non-tender, Full ROM, Nml appearance Neurologic/Psychiatric: positive: Oriented x3, CN's nml (2-12), Mood/affect nml - Lab Results Fish Bones: 11/10/18 06:15 11/10/18 06:15 Other Labs: Lab Results x24hrs 11/10/18 11/10/18 11/10/18 Range/Units 07:56 06:15 06:15 WBC (4.8-10.8) x10^3/uL RBC (4.70-6.10) 10^6/uL Hgb (14.0-18.0) g/dL Hct (42.0-52.0) % MCV (80.0-94.0) fL MCH (27.0-31.0) pg MCHC (32.0-36.0) g/dL RDW (12.0-15.0) % Plt Count (130-450) 10^3/uL MPV (7.4-11.4) fL Neut # (Auto) Lymph # (Auto) [place] # (Auto) Eos # (Auto) Baso # (Auto) Absolute Nucleated RBC Total Counted Band Neuts % (Manual) (0 - 10) % Abnorm Lymph % (Manual) % Nucleated RBC % Neutrophils # (Manual) (1.5-6.6) 10^3/uL Lymphocytes # (Manual) (1.5-3.5) 10^3/uL Monocytes # (Manual) (0.0-1.0) 10^3/uL Eosinophils # (Manual) (0-0.7) 10^3/uL Basophils # (Manual) (0-0.1) 10^3/uL Differential Comment Manual Slide Review Platelet Estimate (NORMAL) Platelet Morphology (NORMAL) RBC Morph Micro Appear (NORMAL) VBG pH 7.506 H (7.31-7.41) Ionized Calcium 0.99 L (1.15-1.33) mmol/L Sodium (135-145) mmol/L Potassium (3.5-5.0) mmol/L Chloride (101-111) mmol/L Carbon Dioxide (21-32) mmol/L Anion Gap (6-13) BUN (6-20) mg/dL Creatinine (0.6-1.2) mg/dL Estimated GFR (MDRD) (>89) Glucose (70-100) mg/dL Glycated Hemoglobin 9.8 H (4.6-6.2) % Estim Average Glucose 235 H (70-100) Lactic Acid (0.5-2.2) mmol/L Calcium (8.5-10.3) mg/dL Phosphorus (2.5-4.6) mg/dL Magnesium (1.7-2.8) mg/dL Iron < 6 L (45-182) ug/dL TIBC 210 L (250-450) ug/dL Transferrin 150 L (180-329) mg/dL Total Bilirubin (0.2-1.0) mg/dL AST (10-42) IU/L ALT (10-60) IU/L Alkaline Phosphatase (42-121) IU/L Total Creatine Kinase (22-269) IU/L CK-MB (CK-2) (0.6-6.3) ng/mL Troponin I (<0.49) ng/mL B-Natriuretic Peptide (5-100) pg/mL Total Protein (6.7-8.2) g/dL Albumin (3.2-5.5) g/dL Globulin (2.1-4.2) g/dL Albumin/Globulin Ratio (1.0-2.2) Prealbumin 13 L (18-45) mg/dL Lipase (22-51) U/L Urine Color Urine Clarity (CLEAR) Urine pH (5.0-7.5) PH Ur Specific [place] (1.002-1.030) Urine Protein (NEGATIVE) mg/dL Urine Glucose (UA) (NEGATIVE) mg/dL Urine Ketones (NEGATIVE) mg/dL Urine Occult Blood (NEGATIVE) Urine Nitrite (NEGATIVE) Urine Bilirubin (NEGATIVE) Urine Urobilinogen (NORMAL) E.U./dL Ur Leukocyte Esterase (NEGATIVE) Ur Microscopic Review Urine Culture Comments Influenza A (Rapid) (Negative) Influenza B (Rapid) (Negative) 11/10/18 11/10/18 11/10/18 Range/Units 06:15 06:15 00:40 WBC 14.6 H (4.8-10.8) x10^3/uL RBC 4.06 L (4.70-6.10) 10^6/uL Hgb 11.8 L (14.0-18.0) g/dL Hct 35.7 L (42.0-52.0) % MCV 88.0 (80.0-94.0) fL MCH 29.1 (27.0-31.0) pg MCHC 33.0 (32.0-36.0) g/dL RDW 15.7 H (12.0-15.0) % Plt Count 152 (130-450) 10^3/uL MPV 9.1 (7.4-11.4) fL Neut # (Auto) 12.9 H Lymph # (Auto) 0.7 L [place] # (Auto) 1.0 Eos # (Auto) 0.0 Baso # (Auto) 0.0 Absolute Nucleated RBC 0.00 Total Counted Band Neuts % (Manual) (0 - 10) % Abnorm Lymph % (Manual) % Nucleated RBC % 0.0 Neutrophils # (Manual) (1.5-6.6) 10^3/uL Lymphocytes # (Manual) (1.5-3.5) 10^3/uL Monocytes # (Manual) (0.0-1.0) 10^3/uL Eosinophils # (Manual) (0-0.7) 10^3/uL Basophils # (Manual) (0-0.1) 10^3/uL Differential Comment Manual Slide Review Platelet Estimate (NORMAL) Platelet Morphology (NORMAL) RBC Morph Micro Appear (NORMAL) VBG pH (7.31-7.41) Ionized Calcium YES (1.15-1.33) mmol/L Sodium 135 (135-145) mmol/L Potassium 3.9 (3.5-5.0) mmol/L Chloride 99 L (101-111) mmol/L Carbon Dioxide 26 (21-32) mmol/L Anion Gap 10.0 (6-13) BUN 15 (6-20) mg/dL Creatinine 0.8 (0.6-1.2) mg/dL Estimated GFR (MDRD) 95 (>89) Glucose 243 H (70-100) mg/dL Glycated Hemoglobin (4.6-6.2) % Estim Average Glucose (70-100) Lactic Acid 1.9 (0.5-2.2) mmol/L Calcium 7.8 L (8.5-10.3) mg/dL Phosphorus 3.4 (2.5-4.6) mg/dL Magnesium 1.7 (1.7-2.8) mg/dL Iron (45-182) ug/dL TIBC (250-450) ug/dL Transferrin (180-329) mg/dL Total Bilirubin 0.9 (0.2-1.0) mg/dL AST 27 (10-42) IU/L ALT 19 (10-60) IU/L Alkaline Phosphatase 59 (42-121) IU/L Total Creatine Kinase (22-269) IU/L CK-MB (CK-2) (0.6-6.3) ng/mL Troponin I (<0.49) ng/mL B-Natriuretic Peptide (5-100) pg/mL Total Protein 5.3 L (6.7-8.2) g/dL Albumin 2.9 L (3.2-5.5) g/dL Globulin 2.4 (2.1-4.2) g/dL Albumin/Globulin Ratio 1.2 (1.0-2.2) Prealbumin (18-45) mg/dL Lipase (22-51) U/L Urine Color Urine Clarity (CLEAR) Urine pH (5.0-7.5) PH Ur Specific [place] (1.002-1.030) Urine Protein (NEGATIVE) mg/dL Urine Glucose (UA) (NEGATIVE) mg/dL Urine Ketones (NEGATIVE) mg/dL Urine Occult Blood (NEGATIVE) Urine Nitrite (NEGATIVE) Urine Bilirubin (NEGATIVE) Urine Urobilinogen (NORMAL) E.U./dL Ur Leukocyte Esterase (NEGATIVE) Ur Microscopic Review Urine Culture Comments Influenza A (Rapid) (Negative) Influenza B (Rapid) (Negative) 11/09/18 11/09/18 11/09/18 Range/Units 21:13 20:54 20:52 WBC (4.8-10.8) x10^3/uL RBC (4.70-6.10) 10^6/uL Hgb (14.0-18.0) g/dL Hct (42.0-52.0) % MCV (80.0-94.0) fL MCH (27.0-31.0) pg MCHC (32.0-36.0) g/dL RDW (12.0-15.0) % Plt Count (130-450) 10^3/uL MPV (7.4-11.4) fL Neut # (Auto) Lymph # (Auto) [place] # (Auto) Eos # (Auto) Baso # (Auto) Absolute Nucleated RBC Total Counted Band Neuts % (Manual) (0 - 10) % Abnorm Lymph % (Manual) % Nucleated RBC % Neutrophils # (Manual) (1.5-6.6) 10^3/uL Lymphocytes # (Manual) (1.5-3.5) 10^3/uL Monocytes # (Manual) (0.0-1.0) 10^3/uL Eosinophils # (Manual) (0-0.7) 10^3/uL Basophils # (Manual) (0-0.1) 10^3/uL Differential Comment Manual Slide Review Platelet Estimate (NORMAL) Platelet Morphology (NORMAL) RBC Morph Micro Appear (NORMAL) VBG pH (7.31-7.41) Ionized Calcium (1.15-1.33) mmol/L Sodium (135-145) mmol/L Potassium (3.5-5.0) mmol/L Chloride (101-111) mmol/L Carbon Dioxide (21-32) mmol/L Anion Gap (6-13) BUN (6-20) mg/dL Creatinine (0.6-1.2) mg/dL Estimated GFR (MDRD) (>89) Glucose (70-100) mg/dL Glycated Hemoglobin (4.6-6.2) % Estim Average Glucose (70-100) Lactic Acid 2.8 H (0.5-2.2) mmol/L Calcium (8.5-10.3) mg/dL Phosphorus (2.5-4.6) mg/dL Magnesium (1.7-2.8) mg/dL Iron (45-182) ug/dL TIBC (250-450) ug/dL Transferrin (180-329) mg/dL Total Bilirubin (0.2-1.0) mg/dL AST (10-42) IU/L ALT (10-60) IU/L Alkaline Phosphatase (42-121) IU/L Total Creatine Kinase (22-269) IU/L CK-MB (CK-2) 3.0 (0.6-6.3) ng/mL Troponin I < 0.04 (<0.49) ng/mL B-Natriuretic Peptide (5-100) pg/mL Total Protein (6.7-8.2) g/dL Albumin (3.2-5.5) g/dL Globulin (2.1-4.2) g/dL Albumin/Globulin Ratio (1.0-2.2) Prealbumin (18-45) mg/dL Lipase (22-51) U/L Urine Color Urine Clarity (CLEAR) Urine pH (5.0-7.5) PH Ur Specific [place] (1.002-1.030) Urine Protein (NEGATIVE) mg/dL Urine Glucose (UA) (NEGATIVE) mg/dL Urine Ketones (NEGATIVE) mg/dL Urine Occult Blood (NEGATIVE) Urine Nitrite (NEGATIVE) Urine Bilirubin (NEGATIVE) Urine Urobilinogen (NORMAL) E.U./dL Ur Leukocyte Esterase (NEGATIVE) Ur Microscopic Review Urine Culture Comments Influenza A (Rapid) Negative (Negative) Influenza B (Rapid) Negative (Negative) 11/09/18 11/09/18 11/09/18 Range/Units 20:52 20:52 20:52 WBC 17.9 H (4.8-10.8) x10^3/uL RBC 4.41 L (4.70-6.10) 10^6/uL Hgb 12.8 L (14.0-18.0) g/dL Hct 38.8 L (42.0-52.0) % MCV 87.9 (80.0-94.0) fL MCH 29.0 (27.0-31.0) pg MCHC 33.0 (32.0-36.0) g/dL RDW 15.0 (12.0-15.0) % Plt Count 168 (130-450) 10^3/uL MPV 9.0 (7.4-11.4) fL Neut # (Auto) Not Reportable Lymph # (Auto) Not Reportable [place] # (Auto) Not Reportable Eos # (Auto) Not Reportable Baso # (Auto) Not Reportable Absolute Nucleated RBC Not Reportable Total Counted 100 Band Neuts % (Manual) 22 H (0 - 10) % Abnorm Lymph % (Manual) 0 % Nucleated RBC % Not Reportable Neutrophils # (Manual) 16.6 H (1.5-6.6) 10^3/uL Lymphocytes # (Manual) 0.2 L (1.5-3.5) 10^3/uL Monocytes # (Manual) 1.1 H (0.0-1.0) 10^3/uL Eosinophils # (Manual) 0.0 (0-0.7) 10^3/uL Basophils # (Manual) 0.0 (0-0.1) 10^3/uL Differential Comment MANUAL DIFFERENTIAL Manual Slide Review Indicated Platelet Estimate NORMAL (130-450,000) (NORMAL) Platelet Morphology NORMAL APPEARANCE (NORMAL) RBC Morph Micro Appear NORMAL APPEARANCE (NORMAL) VBG pH (7.31-7.41) Ionized Calcium (1.15-1.33) mmol/L Sodium 137 (135-145) mmol/L Potassium 3.6 (3.5-5.0) mmol/L Chloride 98 L (101-111) mmol/L Carbon Dioxide 27 (21-32) mmol/L Anion Gap 12.0 (6-13) BUN 14 (6-20) mg/dL Creatinine 0.8 (0.6-1.2) mg/dL Estimated GFR (MDRD) 95 (>89) Glucose 207 H (70-100) mg/dL Glycated Hemoglobin (4.6-6.2) % Estim Average Glucose (70-100) Lactic Acid (0.5-2.2) mmol/L Calcium 8.7 (8.5-10.3) mg/dL Phosphorus (2.5-4.6) mg/dL Magnesium (1.7-2.8) mg/dL Iron (45-182) ug/dL TIBC (250-450) ug/dL Transferrin (180-329) mg/dL Total Bilirubin 0.8 (0.2-1.0) mg/dL AST 29 (10-42) IU/L ALT 19 (10-60) IU/L Alkaline Phosphatase 66 (42-121) IU/L Total Creatine Kinase 192 (22-269) IU/L CK-MB (CK-2) (0.6-6.3) ng/mL Troponin I (<0.49) ng/mL B-Natriuretic Peptide 379 H (5-100) pg/mL Total Protein 6.0 L (6.7-8.2) g/dL Albumin 3.4 (3.2-5.5) g/dL Globulin 2.6 (2.1-4.2) g/dL Albumin/Globulin Ratio 1.3 (1.0-2.2) Prealbumin (18-45) mg/dL Lipase 20 L (22-51) U/L Urine Color Urine Clarity (CLEAR) Urine pH (5.0-7.5) PH Ur Specific [place] (1.002-1.030) Urine Protein (NEGATIVE) mg/dL Urine Glucose (UA) (NEGATIVE) mg/dL Urine Ketones (NEGATIVE) mg/dL Urine Occult Blood (NEGATIVE) Urine Nitrite (NEGATIVE) Urine Bilirubin (NEGATIVE) Urine Urobilinogen (NORMAL) E.U./dL Ur Leukocyte Esterase (NEGATIVE) Ur Microscopic Review Urine Culture Comments Influenza A (Rapid) (Negative) Influenza B (Rapid) (Negative) 11/09/18 Range/Units 10:12 WBC (4.8-10.8) x10^3/uL RBC (4.70-6.10) 10^6/uL Hgb (14.0-18.0) g/dL Hct (42.0-52.0) % MCV (80.0-94.0) fL MCH (27.0-31.0) pg MCHC (32.0-36.0) g/dL RDW (12.0-15.0) % Plt Count (130-450) 10^3/uL MPV (7.4-11.4) fL Neut # (Auto) Lymph # (Auto) [place] # (Auto) Eos # (Auto) Baso # (Auto) Absolute Nucleated RBC Total Counted Band Neuts % (Manual) (0 - 10) % Abnorm Lymph % (Manual) % Nucleated RBC % Neutrophils # (Manual) (1.5-6.6) 10^3/uL Lymphocytes # (Manual) (1.5-3.5) 10^3/uL Monocytes # (Manual) (0.0-1.0) 10^3/uL Eosinophils # (Manual) (0-0.7) 10^3/uL Basophils # (Manual) (0-0.1) 10^3/uL Differential Comment Manual Slide Review Platelet Estimate (NORMAL) Platelet Morphology (NORMAL) RBC Morph Micro Appear (NORMAL) VBG pH (7.31-7.41) Ionized Calcium (1.15-1.33) mmol/L Sodium (135-145) mmol/L Potassium (3.5-5.0) mmol/L Chloride (101-111) mmol/L Carbon Dioxide (21-32) mmol/L Anion Gap (6-13) BUN (6-20) mg/dL Creatinine (0.6-1.2) mg/dL Estimated GFR (MDRD) (>89) Glucose (70-100) mg/dL Glycated Hemoglobin (4.6-6.2) % Estim Average Glucose (70-100) Lactic Acid (0.5-2.2) mmol/L Calcium (8.5-10.3) mg/dL Phosphorus (2.5-4.6) mg/dL Magnesium (1.7-2.8) mg/dL Iron (45-182) ug/dL TIBC (250-450) ug/dL Transferrin (180-329) mg/dL Total Bilirubin (0.2-1.0) mg/dL AST (10-42) IU/L ALT (10-60) IU/L Alkaline Phosphatase (42-121) IU/L Total Creatine Kinase (22-269) IU/L CK-MB (CK-2) (0.6-6.3) ng/mL Troponin I (<0.49) ng/mL B-Natriuretic Peptide (5-100) pg/mL Total Protein (6.7-8.2) g/dL Albumin (3.2-5.5) g/dL Globulin (2.1-4.2) g/dL Albumin/Globulin Ratio (1.0-2.2) Prealbumin (18-45) mg/dL Lipase (22-51) U/L Urine Color YELLOW Urine Clarity CLEAR (CLEAR) Urine pH 6.5 (5.0-7.5) PH Ur Specific [place] <=1.005 (1.002-1.030) Urine Protein NEGATIVE (NEGATIVE) mg/dL Urine Glucose (UA) NEGATIVE (NEGATIVE) mg/dL Urine Ketones NEGATIVE (NEGATIVE) mg/dL Urine Occult Blood TRACE-LYSE (NEGATIVE) Urine Nitrite NEGATIVE (NEGATIVE) Urine Bilirubin NEGATIVE (NEGATIVE) Urine Urobilinogen 0.2 (NORMAL) (NORMAL) E.U./dL Ur Leukocyte Esterase NEGATIVE (NEGATIVE) Ur Microscopic Review NOT INDICATED Urine Culture Comments NOT INDICATED Influenza A (Rapid) (Negative) Influenza B (Rapid) (Negative) - Diagnostic Imaging Diagnostic Imaging Results: positive: Final report reviewed ABX Reporting Has patient been on IV antibiotics over the past 48 hours?: Yes Sepsis Event Note (H) - Evaluation Current Stage of Sepsis: Sepsis Possible source of Sepsis: positive: Pulmonary - Sepsis Criteria Sepsis Criteria: Recorded Heart Rate greater than 90 bpm, Respiratory: Increasing oxygen requirements, WBC count greater than 10% bands, WBC count greater than 12,000 or less than 4000 Assessment/Plan - Problem List (1) Sepsis Impression: Secondary to pneumonia which is community-acquired with superimposed questionable aspiration pneumonia. Continue with IV fluids, empiric IV antibiotics, lactic acid trending, no need for pressor support at this time, presented with severe sepsis and now with improved and resolving sepsis. Due to patient's diabetic status patient high risk for Streptococcus pneumonia and atypical organisms. Patient would likely need to be ruled out for silent aspiration as has history of oropharyngeal dysphagia and is edentulous and has medication-induced dysphagia per history. Failure to thrive with anorexia with approximately 18% weight loss in 3 months and less than 50% p.o. intake and approximately more than 7 days may need a CT chest to confirm possible malignanc y. Qualifiers: Sepsis type: sepsis due to unspecified organism Qualified Code(s): A41.9 - Sepsis, unspecified organism (2) CAP (community acquired pneumonia) Impression: Multilobar pneumonia. Source found to be community acquired pneumonia, However would query on continuous silent aspiration. Chest x-ray shows bilateral peripheral midlung and anterior right base infiltrates. Patient given IV vanco mycin and cefepime in the emergency department. Blood cultures and sputum cultures pending. Influenza A and B negative. Patient requiring 2 L of oxygen. Continuation with azithromycin along with Rocephin however unclear if patient has been exceeded experiencing hypotensive related events with azithromycin. Would query on possible ask for aspiration as patient has a history of oropharyngeal dysphasia in the past mainly with meds at this point and edentulous status. Speech pathology to make recommendations for food consistency with a history of prior barium swallow study. Patient has leukocy tosis with 22% bands. Lactic acid has gone down. Patient presented with upper respiratory tract infection/flulike symptoms. Unclear if there is a underlying component of pulmonary edema/CHF with a BNP of 379. Qualifiers: Laterality: right Lung location: middle lobe of lung Qualified Code(s): J18.1 - Lobar pneumonia, unspecified organism (3) COPD (chronic obstructive pulmonary disease) Impression: Continue with nebs, pulmonary toileting, especially incentive spirometry and medical management. Qualifiers: COPD type: unspecified COPD Qualified Code(s): J44.9 - Chronic obstructive pulmonary disease, unspecified (4) Congestive heart failure Impression: Likely systolic however no prior echocardiogram on [facility]. We will follow-up on echocardiogram on this admission. BNP slightly elevated on admission. Qualifiers: Heart failure type: systolic Heart failure chronicity: chronic Qualified Code(s): I50.22 - Chronic systolic (congestive) heart failure (5) History of coronary artery disease Impression: Patient has coronary artery disease with stents x14 will continue with home medication regimen. (6) Hyperlipidemia Impression: Continuation of a statin. Qualifiers: Hyperlipidemia type: unspecified Qualified Code(s): E78.5 - Hyperlipidemia, unspecified (7) JAUN on CPAP Impression: Continue with home CPAP settings per RT. (8) Type 2 diabetes mellitus with hyperglycemia Impression: Patient is poorly controlled with a hemoglobin A1c of 9.8%, will start on glipizide XL as patient has refused bolus glycemic insulin sliding correctional dosing. Patient with prior history of hypoglycemia and insulin-dependent type 2 diabetes mellitus we will continue with glargine reduced dose to 20 units as patient has had failure to thrive with anorexia and weight loss with moderate to severe protein calorie deficiency malnutrition present on admission. Would maximize optimal insulin management and glycemic control with hemoglobin C of 9.8%. Diabetic teaching education counseling and educator to be provided on this admission. Qualifiers: Diabetes mellitus fdc insulin use: with middle or intermediate school principal use Qualified Code(s): E11.65 - Type 2 diabetes mellitus with hyperglycemia; Z79.4 - shelter (current) use of insulin (9) Generalized weakness Impression: Physical therapy may be needed on this admission. (10) Severe protein-calorie malnutrition Impression: We will optimize medical and nutritional management with dietitian on board as patient has had severe malnutrition and meets criteria with a percent weight loss for approximately 3 months and less than 50% p.o. intake for approximately 7 days or more. May be having a component of underlying depression with anorexia and failure to thrive as back in September. For this reason patient was started on Megace and Remeron. (11) Failure to thrive in adult Impression: Likely with a component of underlying depression, patient with Megace and Remeron to stimulate appetite patient has concomitant and coexisting cachexia with severe protein/calorie deficiency malnutrition.Optimization of nutritional and medical management indicated. (12) Bilateral headaches Impression: We will start on Fioricet as needed (13) Hypotension Impression: Possibly drug-induced after noticing precipitous drop in systolic blood pressure after azithromycin. There was no associated maculopapular rashes. Per patient this has happened in the past patient has multiple drug allergies however none have been noted to be azithromycin on allergy list. We will continue with the azithromycin. Provide IV fluid bolus 1 L as well as provide pressor support in the form of mid a drain 10 mg p.o. 3 times daily as needed with parameters. Qualifiers: Hypotension type: other hypotension type Qualified Code(s): I95.89 - Other hypotension
[2018-11-10] MEDS ORDERED: MIDODRINE 2.5 MG TABLET PO PRN (12:06)
[2018-11-10] MEDS: FERRIC GLUCONATE 125 MG in SODIUM CHLORIDE 0.9% 100ML 100 ML IV SCH (12:59)
[2018-11-10] MEDS: BUTALB/ACETAM/CAFF 50/325/40MG TABLET PO PRN (17:13)
[2018-11-10] MEDS: INSULIN GLARGINE 300 UNIT/3 ML PEN SUBQ SCH (20:20)
[2018-11-10] MEDS: ATORVASTATIN 40 MG TABLET PO SCH (20:20)
[2018-11-10] MEDS: clonazePAM 0.5 MG TABLET PO SCH (20:20)
[2018-11-10] MEDS ORDERED: MIRTAZAPINE 15 MG TABLET PO SCH (21:00)
[2018-11-10] MEDS ORDERED: INSULIN GLARGINE 300 UNIT/3 ML PEN SUBQ SCH (21:00)
[2018-11-10] MEDS ORDERED: AMITRIPTYLINE 25 MG TABLET PO SCH (21:00)
[2018-11-11] MEDS: ACETAMINOPHEN 325 MG TABLET PO PRN ×3 (00:46→19:47)
[2018-11-11] MEDS: oxyCODONE 5 MG TABLET PO PRN ×2 (00:47→06:55)
[2018-11-11] MEDS: SODIUM CHLORIDE FLUSH 0.9% 10 ML SYRINGE IVP SCH ×3 (01:03→15:59)
--- NOTE | 2018-11-11 01:15 | PROVIDER PROGRESS NOTE ---
Heart Surgeon Note - Heart Surgeon Note Heart Surgeon Note: The patient went into Afib, noted on manager winter at about midnight. He was asymptomatic with this. He said he has never been told he had Afib before. HR 80-120. BP 146/66 EKG was done and showed Afib, avg ventr rate 107, unchanged RBBB and vertical QRS axis. A STAT troponin was done and it was undetectable (<0.04). Imp: New Onset Afib. Likely his pneumonia was the trigger. CHADS score = 2 (He does not have systolic congestive heart failure by Echo done today, he does have HTN, his age is not >75, he does have DM, and there is no sign of stroke by CT head done this admission). Plan: Troponin blood test in 6 hours again Consider adding an anticoagulant, but he has just recently fallen and may be at risk of more falls. Increase meds slightly for rate control. The provider will be made aware for further management.
[2018-11-11 05:08] LABS: BASOPHILS % (AUTO) 2.1 %; EOSINOPHILS % (AUTO) 0.3 %; HGB - HEMOGLOBIN 12.7 g/dL (14.0-18.0); MEAN CORPUSCULAR HEMOGLOBIN 29.2 pg (27.0-31.0); MEAN CORPUSCULAR HGB CONC 31.9 g/dL (32.0-36.0); MEAN CORPUSCULAR VOLUME 91.6 fL (80.0-94.0); MEAN PLATELET VOLUME 8.7 fL (7.4-11.4); MONOCYTES % (AUTO) 6.8 %; NEUTROPHILS % (AUTO) 86.8 %; PLT - PLATELET COUNT 148 10^3/uL (130-450); RED BLOOD COUNT 4.33 10^6/uL (4.70-6.10); RED CELL DISTRIBUTION WIDTH 15.9 % (12.0-15.0); WHITE BLOOD COUNT 14.4 x10^3/uL (4.8-10.8)
[2018-11-11 05:27] LABS: ALKALINE PHOSPHATASE 77 IU/L (42-121); AST ASPARTATE AMINOTRANSFERASE 24 IU/L (10-42); CALCIUM 8.4 mg/dL (8.5-10.3); CARBON DIOXIDE - CO2 23 mmol/L (21-32); CHLORIDE 102 mmol/L (101-111); GLUCOSE 153 mg/dL (70-100); SODIUM 137 mmol/L (135-145)
[2018-11-11 05:32] LABS: ABNORMAL LYMPHS % (MANUAL) 0 %
[2018-11-11 05:54] LABS: ALBUMIN 2.9 g/dL (3.2-5.5); ALT ALANINE AMINOTRANSFERASE 18 IU/L (10-60); BILIRUBIN,TOTAL 0.7 mg/dL (0.2-1.0); BUN - BLOOD UREA NITROGEN 11 mg/dL (6-20); CREATININE 0.8 mg/dL (0.6-1.2); GFR - MDRD 95 (>89); MAGNESIUM 2.1 mg/dL (1.7-2.8); PHOSPHORUS 2.3 mg/dL (2.5-4.6); TOTAL PROTEIN 5.9 g/dL (6.7-8.2)
[2018-11-11 06:43] LABS: BAND NEUTROPHILS % (MANUAL) 15 %; DIFFERENTIAL COMMENT MANUAL DIFFERENTIAL; LYMPHOCYTES # (MANUAL) 1.9 10^3/uL (1.5-3.5); LYMPHOCYTES % (MANUAL) 13 %; MONOCYTES # (MANUAL) 0.7 10^3/uL (0.0-1.0); NEUTROPHILS # (MANUAL) 11.8 10^3/uL (1.5-6.6); NEUTROPHILS % (MANUAL) 67 %; PLATELET ESTIMATE, MANUAL NORMAL (130-450,000) (NORMAL); RBC MORPHOLOGY (MULTIPLE) NORMAL APPEARANCE (NORMAL)
[2018-11-11] MEDS: PANTOPRAZOLE 40 MG TABLET PO SCH (06:43)
[2018-11-11] MEDS ORDERED: METOPROLOL TARTRATE 25 MG TABLET PO SCH ×2 (09:00→14:00)
[2018-11-11] MEDS: INSULIN ASPART 300 UNIT/3 ML PEN SUBQ SCH ×4 (09:03→21:21)
[2018-11-11] MEDS: cefTRIAXone 2 GM in SODIUM CHLORIDE 0.9% MINIBAG 100 ML IV SCH (09:25)
[2018-11-11] MEDS: ENOXAPARIN 40 MG/0.4 ML SYRINGE SUBQ SCH (09:53)
[2018-11-11] MEDS: MULTIVITAMIN TABLET PO SCH (09:54)
[2018-11-11] MEDS: CLOPIDOGREL 75 MG TABLET PO SCH (09:54)
[2018-11-11] MEDS: MOMETASONE FUROATE NAS SCH ×2 (09:54→21:22)
[2018-11-11] MEDS: FAMOTIDINE 20 MG TABLET PO SCH ×2 (09:54→21:18)
[2018-11-11] MEDS: POLYETHYLENE GLYCOL 3350 17 GM PACKET PO SCH (09:54)
[2018-11-11] MEDS: MAGNESIUM OXIDE 400 MG TABLET PO SCH (09:54)
[2018-11-11] MEDS: GABAPENTIN 300 MG CAPSULE PO SCH (09:54)
[2018-11-11] MEDS: ASPIRIN EC 81 MG TABLET PO SCH (09:54)
[2018-11-11] MEDS: MEGESTROL 400 MG/10 ML UDC PO SCH (09:54)
[2018-11-11] MEDS: ASCORBIC ACID CHEW 500 MG TABLET PO SCH (09:54)
[2018-11-11] MEDS: SODIUM CHLORIDE FLUSH 0.9% 10 ML SYRINGE IVP PRN (09:55)
[2018-11-11] MEDS ORDERED: HYDROcod/ACETAM 5/325 MG TABLET PO PRN (11:15)
[2018-11-11] MEDS: FERRIC GLUCONATE 125 MG in SODIUM CHLORIDE 0.9% 100ML 100 ML IV SCH (11:21)
[2018-11-11] MEDS: CLINDAMYCIN 900 MG/50 ML 50 ML IV SCH ×2 (12:57→17:32)
--- NOTE | 2018-11-11 13:40 | PROVIDER PROGRESS NOTE ---
Subjective - Prog Note Date Prog Note Date: 11/11/18 Prog Note Time: 13:38 - Subjective Pt reports feeling: Improved Subjective: Patient's respiratory status has improved. Patient was able to tolerate diet yesterday. Patient denies palpitations continues to have shortness of breath with his O2 dependence as it relates to his COPD and pneumonia with an aspiration component. Current Medications - Current Medications Current Medications: Active Medications Acetaminophen (Tylenol) 650 mg PO Q4HR PRN PRN Reason: Pain 1 to 4 Last Admin: 11/11/18 06:55 Dose: 650 mg Acetaminophen/Butalbital/Caffeine (Fioricet) 1 tab PO Q4HR PRN PRN Reason: HEADACHE Last Admin: 11/10/18 17:13 Dose: 1 tab Hydrocodone Bitart/Acetaminophen ([place] 5/325) 1 tab PO QID PRN PRN Reason: PAIN Albuterol/Ipratropium (Duoneb) 3 ml INH RTQ4H PRN PRN Reason: Wheezing Amitriptyline HCl (Elavil) 25 mg PO HS [facility] Last Admin: 11/10/18 20:20 Dose: 25 mg Apixaban (Eliquis) 5 mg PO BID [facility] Ascorbic Acid (Vitamin C) 1,000 mg PO DAILY [facility] Last Admin: 11/11/18 09:54 Dose: 1,000 mg Aspirin (Ecotrin) 81 mg PO DAILY [facility] Last Admin: 11/11/18 09:54 Dose: 81 mg Atorvastatin Calcium (Lipitor) 80 mg PO QPM [facility] Last Admin: 11/10/18 20:20 Dose: 80 mg Clonazepam (Klonopin) 0.5 mg PO [facility] Last Admin: 11/10/18 20:20 Dose: 0.5 mg Clopidogrel Bisulfate (Plavix) 75 mg PO DAILY [facility] Last Admin: 11/11/18 09:54 Dose: 75 mg Ezetimibe (Zetia) 10 mg PO QPM [facility] Last Admin: 11/10/18 20:21 Dose: 10 mg Enoxaparin Sodium (Lovenox) 40 mg SUBQ DAILY [facility] Last Admin: 11/11/18 09:53 Dose: 40 mg Famotidine (Pepcid) 20 mg PO BID [facility] Last Admin: 11/11/18 09:54 Dose: 20 mg Furosemide (Lasix) 20 mg PO DAILY [facility] Gabapentin (Neurontin) 300 mg PO BID [facility] Last Admin: 11/11/18 09:54 Dose: 300 mg Glipizide (Glucotrol Xl) 5 mg PO DAILYWM [facility] Last Admin: 11/11/18 09:53 Dose: 5 mg Ceftriaxone Sodium 2 gm/ (Sodium Chloride) 100 mls @ 200 mls/hr IV DAILY [facility] Last Infusion: 11/11/18 11:00 Dose: Infused Clindamycin Phosphate (Cleocin 900 Mg/50 Ml) 50 mls @ 50 mls/hr IV Q6HR [facility] Last Admin: 11/11/18 12:57 Dose: 50 mls/hr Insulin Aspart (Novolog) 1 - 5 unit SUBQ 0800,1200,1700,2100 [facility]; Protocol Last Admin: 11/11/18 12:35 Dose: Not Given Insulin Glargine (Lantus Solostar) 20 unit SUBQ QPM [facility] Last Admin: 11/10/18 20:20 Dose: 20 unit Magnesium Oxide (Mag Ox) 400 mg PO DAILY [facility] Last Admin: 11/11/18 09:54 Dose: 400 mg Megestrol Acetate (Megace) 400 mg PO DAILY [facility] Last Admin: 11/11/18 09:54 Dose: 400 mg Metoprolol Tartrate (Lopressor) 25 mg PO TID [facility] Midodrine () 10 mg PO TID PRN PRN Reason: SBP<100 or DBP<50 Mirtazapine (Remeron) 7.5 mg PO QPM [facility] Last Admin: 11/10/18 20:20 Dose: 7.5 mg Multivitamins (Theragran) 1 tab PO DAILY [facility] Last Admin: 11/11/18 09:54 Dose: 1 tab Nitroglycerin (Nitrostat) 0.4 mg SL Q5MIN PRN PRN Reason: Chest Pain Ondansetron HCl (Zofran Inj) 4 mg IVP Q6HR PRN PRN Reason: Nausea / Vomiting Oxycodone HCl (Roxicodone) 5 mg PO Q4HR PRN PRN Reason: Pain 5 to 7 Last Admin: 11/11/18 06:55 Dose: 5 mg Oxycodone HCl (Roxicodone) 10 mg PO Q4HR PRN PRN Reason: Pain 8 to 10 Pantoprazole Sodium (Protonix) 40 mg PO QDAC [facility] Last Admin: 11/11/18 06:43 Dose: 40 mg Patient Own Med ( Mometasone Furoate [ Nasonex] 2 [place]) 2 each KILLIAN BID [facility] Last Admin: 11/11/18 09:54 Dose: Not Given Polyethylene Glycol (Miralax) 17 gm PO DAILY [facility] Last Admin: 11/11/18 09:54 Dose: 17 gm Prochlorperazine Edisylate (Compazine Inj) 10 mg IVP Q6HR PRN PRN Reason: Nausea / Vomiting Promethazine HCl (Phenergan Inj) 25 mg IM Q6HR PRN PRN Reason: Nausea / Vomiting Sodium Chloride (Normal Saline Flush 0.9%) 10 ml IVP PRN PRN PRN Reason: NEEDED PER PROVIDER ORDERS Last Admin: 11/11/18 09:55 Dose: 40 ml Sodium Chloride (Normal Saline Flush 0.9%) 10 ml IVP 0100,0900,1700 [facility] Last Admin: 11/11/18 09:55 Dose: 10 ml Zolpidem Tartrate (Ambien) 5 mg PO QPM PRN PRN Reason: Insomnia Amitriptyline [Elavil] 25 mg PO HS 06/09/13 HYDROcod/ACETAM 5/325 [[place] 5/325] 1 tab PO QID PRN 06/09/13 Insulin Glargine,Hum.rec.anlog [Lantus] 40 unit SQ QPM 06/09/13 Metformin HCl [Metformin HCl ER] 1,000 mg PO BID 06/09/13 Mometasone Furoate [Nasonex] 2 spray KILLIAN BID 06/09/13 Multivitamin [Multi-Vitamin Daily] 1 each PO DAILY 06/09/13 Nitroglycerin [Nitrostat] 0.4 mg SL Q5MIN PRN 06/09/13 clonazePAM [Klonopin] 0.5 mg PO HS 06/09/13 Ascorbic Acid [Vitamin C] 1,000 mg PO DAILY 07/05/15 Ezetimibe [Zetia] 10 mg PO DAILY PM 02/25/16 Atorvastatin Calcium [Lipitor] 80 mg PO QPM 04/23/17 Clopidogrel [Plavix] 75 mg PO DAILY 04/23/17 Pantoprazole [Protonix] 40 mg PO QDAC 04/23/17 amLODIPine [Norvasc] 5 mg PO QPM 04/23/17 Isosorbide Dinitrate 20 mg PO BID 05/24/17 Albuterol Sulfate [Proair Hfa Inhaler] 2 puffs INH Q4H PRN 03/31/18 Aspirin [Aspirin EC] 81 mg PO DAILY 03/31/18 Furosemide 20 mg PO DAILY 03/31/18 Gabapentin 300 mg PO BID 03/31/18 Glipizide [Glipizide ER] 5 mg PO DAILY 03/31/18 Gluc/Devin-MSM#1/Vit C/Blane/Bor [Mojimxr-Fgnry-NZT Complex Cplt] 1 each PO BID Magnesium Oxide [Magnesium] 500 mg PO DAILY 03/31/18 Metoprolol Tartrate [Lopressor] 50 mg PO TID 03/31/18 Objective - Vital Signs/Intake & Output Reviewed Vital Signs: Yes Vital Signs: Vital Signs x48h Temp Pulse Resp BP BP Pulse Ox 11/11/18 13:01 95 20 98/46 L 90 L 11/11/18 09:53 133/64 H 11/11/18 07:32 36.6 C 109 H 21 133/64 H 91 L Intake & Output: Intake & Output 11/08/18 11/09/18 11/10/18 11/11/18 23:59 23:59 23:59 23:59 Intake Total 1100 4175 460 Output Total 1650 1175 Balance 1100 3137 -348 - Objective General Appearance: positive: No acute distress, Other (Chronically ill- appearing, Thin and cachectic) Eyes Bilateral: positive: Normal inspection, PERRL, EOMI ENT: positive: ENT inspection nml, Pharynx nml, No signs of dehydration Neck: positive: Nml inspection, Thyroid nml, No JVD, Trachea midline. negative: Thyromegaly, Carotid bruit Respiratory: positive: Chest non-tender, No respiratory distress, Rales (Faint by lateral), Rhonchi (Prolonged expiratory phase). negative: Wheezes Cardiovascular: positive: Regular rate & rhythm, No murmur, No gallop. negative: Irregularly irregular, JVD present, Systolic murmur, Diastolic murmur Peripheral Pulses: 2+ Dorsalis pedis (R), 2+ Dorsalis pedis (L) Abdomen: positive: Non-tender, No organomegaly, Nml bowel sounds, No distention. negative: Tenderness Skin: positive: Color nml, No rash, Warm Extremities: positive: Non-tender, Full ROM, Nml appearance. negative: Pedal edema, Joint swelling, Anita's sign/cords Neurologic/Psychiatric: positive: Oriented x3, CN's nml (2-12) - Lab Results Fish Bones: 11/11/18 04:40 11/11/18 04:40 Other Labs: Lab Results x24hrs 11/11/18 11/11/18 11/11/18 Range/Units 06:05 04:40 04:40 WBC 14.4 H (4.8-10.8) x10^3/uL RBC 4.33 L (4.70-6.10) 10^6/uL Hgb 12.7 L (14.0-18.0) g/dL Hct 39.7 L (42.0-52.0) % MCV 91.6 (80.0-94.0) fL MCH 29.2 (27.0-31.0) pg MCHC 31.9 L (32.0-36.0) g/dL RDW 15.9 H (12.0-15.0) % Plt Count 148 (130-450) 10^3/uL MPV 8.7 (7.4-11.4) fL Neut # (Auto) Not Reportable Lymph # (Auto) Not Reportable [place] # (Auto) Not Reportable Eos # (Auto) Not Reportable Baso # (Auto) Not Reportable Absolute Nucleated RBC Not Reportable Total Counted 100 Band Neuts % (Manual) 15 H (0 - 10) % Abnorm Lymph % (Manual) 0 % Nucleated RBC % Not Reportable Neutrophils # (Manual) 11.8 H (1.5-6.6) 10^3/uL Lymphocytes # (Manual) 1.9 (1.5-3.5) 10^3/uL Monocytes # (Manual) 0.7 (0.0-1.0) 10^3/uL Eosinophils # (Manual) 0.0 (0-0.7) 10^3/uL Basophils # (Manual) 0.0 (0-0.1) 10^3/uL Differential Comment MANUAL DIFFERENTIAL Platelet Estimate NORMAL (130-450,000) (NORMAL) RBC Morph Micro Appear NORMAL APPEARANCE (NORMAL) Sodium 137 (135-145) mmol/L Potassium 3.5 (3.5-5.0) mmol/L Chloride 102 (101-111) mmol/L Carbon Dioxide 23 (21-32) mmol/L Anion Gap 12.0 (6-13) BUN 11 (6-20) mg/dL Creatinine 0.8 (0.6-1.2) mg/dL Estimated GFR (MDRD) 95 (>89) Glucose 153 H (70-100) mg/dL Calcium 8.4 L (8.5-10.3) mg/dL Ionized Calcium NO Phosphorus 2.3 L (2.5-4.6) mg/dL Magnesium 2.1 (1.7-2.8) mg/dL Total Bilirubin 0.7 (0.2-1.0) mg/dL AST 24 (10-42) IU/L ALT 18 (10-60) IU/L Alkaline Phosphatase 77 (42-121) IU/L Troponin I < 0.04 (<0.49) ng/mL Total Protein 5.9 L (6.7-8.2) g/dL Albumin 2.9 L (3.2-5.5) g/dL Globulin 3.0 (2.1-4.2) g/dL Albumin/Globulin Ratio 1.0 (1.0-2.2) 11/11/18 Range/Units 00:15 WBC (4.8-10.8) x10^3/uL RBC (4.70-6.10) 10^6/uL Hgb (14.0-18.0) g/dL Hct (42.0-52.0) % MCV (80.0-94.0) fL MCH (27.0-31.0) pg MCHC (32.0-36.0) g/dL RDW (12.0-15.0) % Plt Count (130-450) 10^3/uL MPV (7.4-11.4) fL Neut # (Auto) Lymph # (Auto) [place] # (Auto) Eos # (Auto) Baso # (Auto) Absolute Nucleated RBC Total Counted Band Neuts % (Manual) (0 - 10) % Abnorm Lymph % (Manual) % Nucleated RBC % Neutrophils # (Manual) (1.5-6.6) 10^3/uL Lymphocytes # (Manual) (1.5-3.5) 10^3/uL Monocytes # (Manual) (0.0-1.0) 10^3/uL Eosinophils # (Manual) (0-0.7) 10^3/uL Basophils # (Manual) (0-0.1) 10^3/uL Differential Comment Platelet Estimate (NORMAL) RBC Morph Micro Appear (NORMAL) Sodium (135-145) mmol/L Potassium (3.5-5.0) mmol/L Chloride (101-111) mmol/L Carbon Dioxide (21-32) mmol/L Anion Gap (6-13) BUN (6-20) mg/dL Creatinine (0.6-1.2) mg/dL Estimated GFR (MDRD) (>89) Glucose (70-100) mg/dL Calcium (8.5-10.3) mg/dL Ionized Calcium Phosphorus (2.5-4.6) mg/dL Magnesium (1.7-2.8) mg/dL Total Bilirubin (0.2-1.0) mg/dL AST (10-42) IU/L ALT (10-60) IU/L Alkaline Phosphatase (42-121) IU/L Troponin I < 0.04 (<0.49) ng/mL Total Protein (6.7-8.2) g/dL Albumin (3.2-5.5) g/dL Globulin (2.1-4.2) g/dL Albumin/Globulin Ratio (1.0-2.2) - Diagnostic Imaging Diagnostic Imaging Results: positive: Final report reviewed ABX Reporting Has patient been on IV antibiotics over the past 48 hours?: Yes Sepsis Event Note (H) - Evaluation Current Stage of Sepsis: Sepsis Possible source of Sepsis: positive: Pulmonary - Sepsis Criteria Sepsis Criteria: Recorded Heart Rate greater than 90 bpm, Respiratory: Increasing oxygen requirements, WBC count greater than 10% bands, WBC count greater than 12,000 or less than 4000 Assessment/Plan - Problem List (1) Sepsis Impression: Secondary to Multi lobar pneumonia with extensive consolidation and groundglass opacities throughout both lungs. Community-acquired pneumonia with a component of aspiration perhaps (chronic "silent" aspiration), Versus atypical pneumonia such as mycoplasma or PCP pneumonia which would benefit from a bronchoscopy if patient's respiratory status further declines. Would change antibiotics to clindamycin plus Rocephin patient has adentulous status which may places him at high risk for further aspiration events. Speech pathology is following currently on a dysphagia mechanical altered diet. Continue with pulmonary toileting, nebs, steroids, incentive spirometry and supportive medical managem ent. Blood cultures to follow. Hypotension was corrected and does not require pressor support. Qualifiers: Sepsis type: sepsis due to unspecified organism Qualified Code(s): A41.9 - Sepsis, unspecified organism (2) Multilobar lung infiltrate Impression: CT chest shows extensive multifocal consolidation and groundglass opacities throughout the both lungs concerning for multifocal pneumonia. Trace bilateral pleural effusions as well as bilateral pleural thickening, which may indicate sequela of previous complicated pleural effusions. No evidence of loculations or indication to think this was an empyema. Would continue with clindamycin and consider discontinuing rocephin due to high rate at 200 ml/hr. (3) New onset a-fib Impression: Patient had new onset RVR A. fib, Confirmed on EKG with 2 sets of troponins unremarkable, likely secondary to patient's aspiration pneumonia/commute acquired pneumonia with ventricular strain. Status post pharmacological cardioversion with metoprolol 25 mg p.o. 3 times daily. However, patient's blood pressure does not tolerate this regimen and will likely switch over to digoxin for paroxysmal atrial fibrillation to prevent recurrence. Eliquis at 5 mg p.o. twice daily due to a CHADSVASC of 4 points. Patient presents with bleeding risk as patient has already aspirin and Plavix on board for patient's 14 stents and chronic ischemic heart disease with coronary disease. Patient's paroxysmal atrial fibrillation has been converted to normal sinus rhythm now. Currently without any recurrence. (4) CAP (community acquired pneumonia) Impression: Discontinue azithromycin and placed on clindamycin to cover anaerobes along with MRSA, CA-acquired, consider d/c rocephin due to high rate IVF's. May place on doxycycline instead. Continue with current medical management maximizing oxygenation currently on Baseline 2.5 L nasal cannula. Respiratory sputum culture shows rare gram-positive cocci in pairs as well as rare rare fungal hyphae. Qualifiers: Laterality: right Lung location: middle lobe of lung Qualified Code(s): J18.1 - Lobar pneumonia, unspecified organism (5) COPD (chronic obstructive pulmonary disease) Impression: Continue with current medical management Qualifiers: COPD type: unspecified COPD Qualified Code(s): J44.9 - Chronic obstructive pulmonary disease, unspecified (6) Congestive heart failure Impression: Patient has diastolic dysfunction CHF grade 1 with ejection fraction of 50-55%. Qualifiers: Heart failure type: diastolic Heart failure chronicity: chronic Qualified Code(s): I50.32 - Chronic diastolic (congestive) heart failure (7) History of coronary artery disease Impression: Coronary disease with history of chronic angina for which patient was previously taking Ranexa. Has history of stents x14. Would consult and or call primary site surveyor as patient will have Eliquis added onto his aspirin and Plavix for which he currently takes. (8) Hyperlipidemia Impression: Continue with statin Qualifiers: Hyperlipidemia type: unspecified Qualified Code(s): E78.5 - Hyperlipidemia, unspecified (9) JAUN on CPAP Impression: Continue with CPAP, On home settings. (10) Type 2 diabetes mellitus with hyperglycemia Impression: Continue with glycemic control. 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 (12) Severe protein-calorie malnutrition Impression: Optimize medical and nutritional management, Maryuri and Chriss on board for failure to thrive and anorexia. (13) Oropharyngeal dysphagia Impression: Patient with "silent" aspiration on barium with an MBSS showing a "slowing" hypopharynx along with vallecular pooling. Currently his diet is at a dysphagia mechanical altered diet with thin liquids to be replaced by speech pathology. Likelihood of patient chronically aspirating is high due to the involvement of the right middle lobe and bilateral lobes on presentation. Respiratory culture growing rare gram-positive cocci in pairs as well as rare fungal hyphae as this may be anuj normal. Speech pathology to continue working with patient for cueing as he eats as well as controlling swallowing and perhaps training patient.
[2018-11-11] MEDS ORDERED: DIGOXIN 125 MCG TABLET PO SCH (14:19)
[2018-11-11] MEDS: APIXABAN 5 MG TABLET PO SCH ×2 (14:34→21:18)
[2018-11-11 14:49] LABS: ABG HCO3 24.6 mmol/L (22.0-26.0); ABG PCO2 43 mmHg (34-45); ABG PH 7.38 (7.35-7.45); ABG PO2 62 mmHg (80-100)
[2018-11-11 14:50] LABS: ABG BASE EXCESS -0.6 mmol/L (-2.0-3.0); ABG OXYGEN SATURATION 91 % (94-98); ALLEN TEST POSITIVE
--- NOTE | 2018-11-11 15:32 | CT Report ---
Reason: Worsening hypoxemia Procedure Date: 11/11/2018 Accession Number: [id number] / [id number] Procedure: CT - CHEST WO CPT Code: FULL RESULT: EXAM: CT CHEST EXAM DATE: 11/11/2018 02:56 PM. CLINICAL HISTORY: Worsening hypoxemia. COMPARISONS: Chest radiograph from 11/09/2018, 04/06/2018. TECHNIQUE: Routine helical CT imaging was performed through the chest. IV contrast: None. Reconstructions: Coronal and sagittal. In accordance with CT protocol optimization, one or more of the following dose reduction techniques were utilized for this exam: automated exposure control, adjustment of mA and/or KV based on patient size, or use of iterative reconstructive technique. FINDINGS: Lungs/Pleura: There are extensive patchy areas of consolidation and groundglass opacity throughout both lungs. Opacities are slightly greater on the left than on the right. There appears to be bilateral pleural thickening as well as trace bilateral pleural effusions. Pleural calcifications are present in bilateral lung apices. Mediastinum: Heart is borderline enlarged with multivessel coronary artery calcification and/or stenting. There also appear to be postsurgical changes from CABG. There are several small and mildly prominent lymph nodes. For example, right paratracheal node measures 9 mm in short axis (series 3, image 12). There is atherosclerotic calcification of the thoracic aorta, which is normal in caliber. Bones: No suspicious osseous lesion. Visualized Abdomen: There appear to be surgical clips in the region of the esophageal hiatus. The remainder of the visualized upper abdomen is unremarkable. Other: None. IMPRESSION: 1. Extensive multifocal consolidation and groundglass opacities throughout both lungs, concerning for multifocal pneumonia. 2. Trace bilateral pleural effusions as well as bilateral pleural thickening, which may indicate sequela of previous complicated pleural effusions. RADIA
[2018-11-11] MEDS: FUROSEMIDE 20 MG/2 ML VIAL IVP SCH (15:58)
[2018-11-11] MEDS: IPRATROPIUM/ALBUTEROL 3 ML NEB INH SCH ×2 (16:21→22:49)
[2018-11-11] MEDS: MIDODRINE 2.5 MG TABLET PO SCH (17:38)
[2018-11-11] MEDS: ATORVASTATIN 40 MG TABLET PO SCH (21:18)
[2018-11-11] MEDS: EZETIMIBE 10 MG TABLET PO SCH (21:19)
[2018-11-11] MEDS: INSULIN GLARGINE 300 UNIT/3 ML PEN SUBQ SCH (21:20)
[2018-11-12] MEDS: SODIUM CHLORIDE FLUSH 0.9% 10 ML SYRINGE IVP SCH ×3 (00:21→21:43)
[2018-11-12] MEDS: CLINDAMYCIN 900 MG/50 ML 50 ML IV SCH ×2 (00:21→05:23)
[2018-11-12] MEDS: clonazePAM 0.5 MG TABLET PO SCH ×2 (00:35→21:44)
[2018-11-12] MEDS: IPRATROPIUM/ALBUTEROL 3 ML NEB INH SCH ×5 (02:31→21:16)
[2018-11-12 04:05] LABS: BASOPHILS % (AUTO) 0.3 %; EOSINOPHILS % (AUTO) 0.3 %; HGB - HEMOGLOBIN 11.8 g/dL (14.0-18.0); LYMPHOCYTES # (AUTO) 0.6 10^3/uL (1.5-3.5); LYMPHOCYTES % (AUTO) 3.9 %; MEAN CORPUSCULAR HEMOGLOBIN 29.3 pg (27.0-31.0); MEAN CORPUSCULAR HGB CONC 33.4 g/dL (32.0-36.0); MEAN CORPUSCULAR VOLUME 87.8 fL (80.0-94.0); MEAN PLATELET VOLUME 8.3 fL (7.4-11.4); MONOCYTES # (AUTO) 0.9 10^3/uL (0.0-1.0); MONOCYTES % (AUTO) 5.7 %; NEUTROPHILS # (AUTO) 14.1 10^3/uL (1.5-6.6); NEUTROPHILS % (AUTO) 89.8 %; PLT - PLATELET COUNT 174 10^3/uL (130-450); RED BLOOD COUNT 4.02 10^6/uL (4.70-6.10); RED CELL DISTRIBUTION WIDTH 15.8 % (12.0-15.0); WHITE BLOOD COUNT 15.7 x10^3/uL (4.8-10.8)
[2018-11-12 04:15] LABS: ALBUMIN 2.5 g/dL (3.2-5.5); ALBUMIN/GLOBULIN RATIO 0.9 (1.0-2.2); ALKALINE PHOSPHATASE 94 IU/L (42-121); ALT ALANINE AMINOTRANSFERASE 35 IU/L (10-60); AST ASPARTATE AMINOTRANSFERASE 31 IU/L (10-42); BILIRUBIN,TOTAL 0.7 mg/dL (0.2-1.0); BUN - BLOOD UREA NITROGEN 11 mg/dL (6-20); CALCIUM 7.9 mg/dL (8.5-10.3); CARBON DIOXIDE - CO2 26 mmol/L (21-32); CHLORIDE 102 mmol/L (101-111); CREATININE 0.7 mg/dL (0.6-1.2); GFR - MDRD 111 (>89); GLUCOSE 131 mg/dL (70-100); MAGNESIUM 2.1 mg/dL (1.7-2.8); PHOSPHORUS 2.2 mg/dL (2.5-4.6); SODIUM 136 mmol/L (135-145); TOTAL PROTEIN 5.4 g/dL (6.7-8.2)
[2018-11-12 04:32] LABS: VBG PH 7.32 (7.31-7.41)
[2018-11-12] MEDS: NEUTRA-PHOS 250 MG TABLET PO SCH ×3 (05:21→11:03)
[2018-11-12] MEDS: BUTALB/ACETAM/CAFF 50/325/40MG TABLET PO PRN (05:21)
[2018-11-12] MEDS: oxyCODONE 5 MG TABLET PO PRN (05:21)
[2018-11-12] MEDS: FUROSEMIDE 20 MG/2 ML VIAL IVP SCH (05:23)
[2018-11-12] MEDS ORDERED: POTASSIUM CHLORIDE 20 MEQ TABLET PO ONE (06:00)
[2018-11-12] MEDS: PANTOPRAZOLE 40 MG TABLET PO SCH (06:28)
[2018-11-12] MEDS: MIDODRINE 2.5 MG TABLET PO SCH (06:43)
[2018-11-12 08:38] LABS: ABG PCO2 29 mmHg (34-45)
[2018-11-12 08:39] LABS: ABG BASE EXCESS 0.3 mmol/L (-2.0-3.0); ABG HCO3 22.5 mmol/L (22.0-26.0); ABG OXYGEN SATURATION 94 % (94-98); ABG PO2 65 mmHg (80-100); ABG TCO2 23.4 MMOL/L (21.0-29.0); ALLEN TEST POSITIVE
[2018-11-12] MEDS ORDERED: MIDODRINE 2.5 MG TABLET PO PRN (08:50)
[2018-11-12] MEDS ORDERED: FUROSEMIDE 40 MG/4 ML VIAL IVP SCH (09:00)
[2018-11-12] MEDS ORDERED: methylPREDNISolone SUCCINATE 40 MG/ML VIAL IVP SCH (09:00)
[2018-11-12] MEDS ORDERED: diltiaZEM INJ 125 MG in DEXTROSE 5% 100 ML IV SCH (09:00)
[2018-11-12] MEDS ORDERED: FUROSEMIDE 20 MG TABLET PO SCH (09:00)
[2018-11-12] MEDS: INSULIN ASPART 300 UNIT/3 ML PEN SUBQ SCH ×2 (09:03→12:33)
[2018-11-12] MEDS: ACETAMINOPHEN 325 MG TABLET PO PRN (09:04)
[2018-11-12] MEDS: APIXABAN 5 MG TABLET PO SCH ×2 (09:05→21:44)
[2018-11-12] MEDS: SERTRALINE 25 MG TABLET PO SCH (09:06)
[2018-11-12] MEDS: CLOPIDOGREL 75 MG TABLET PO SCH (09:06)
[2018-11-12] MEDS: MULTIVITAMIN TABLET PO SCH (09:07)
[2018-11-12] MEDS: ASCORBIC ACID CHEW 500 MG TABLET PO SCH (09:08)
[2018-11-12] MEDS: MEGESTROL 400 MG/10 ML UDC PO SCH (09:08)
[2018-11-12] MEDS: FAMOTIDINE 20 MG TABLET PO SCH ×2 (09:08→21:49)
[2018-11-12] MEDS: ASPIRIN EC 81 MG TABLET PO SCH (09:10)
[2018-11-12] MEDS: MAGNESIUM OXIDE 400 MG TABLET PO SCH (09:11)
--- NOTE | 2018-11-12 10:25 | MISCELLANEOUS PROVIDER NOTE ---
Miscellaneous Provider Note - - Note: Subjective: Patient with denies productive cough, hemoptysis, has fevers with a T-max of 38.5 Objective: Vital signs somewhat stable T-max 38.5, heart rate 114 with PVCs and A. fib, Blood pressure 120/70, 98% O2 saturation on 7 L nasal cannula. RR 40. General: Patient acutely ill-appearing, agitated responsive to command, increased work of breath noted, currently on CPAP at 7 L. In moderate respiratory distress HEENT: Pupils equal round react to light and accommodation extraocular muscles are bilateral intact, no buccal lesions, NCAT Neck: No JVD no bruits no lymphadenopathy CV lungs: Irregular rate and rhythm, RVR A. fib, no murmurs no gallops no clicks, decreased breath sounds bibasilarly with scattered pronounced marketed rales to the bases right more than left, increased work of breath with some intercostal retractions no wheezing. Abdomen: Nontender nondistended, bowel sounds are decreased no hepatosplenomegaly, no ascites, no HSM Extremities and skin no edema clubbing or cyanosis 2+ pulses dorsalis pedis bilateral. Neuro: Grossly intact. Labs: Reviewed Imaging studies: CTA chest shows extensive multifocal consolidation and groundglass opacities throughout both lungs concerning for multifocal pneumonia trace bilateral pleural effusion as well as bilateral pleural thickening which may indicate sequela of previous complicated pleural effusions. agitation and worsening shortness of breath. 11/12/18: Post CVP line chest x-ray shows patchy bilateral airspace opacities compatible with consolidation with developing small to moderate right effusion. Right-sided CVP terminating in the distal SVC Diagnostic Imaging Diagnostic Imaging Results: positive: Final report reviewed ABX Reporting Has patient been on IV antibiotics over the past 48 hours?: Yes Sepsis Event Note (H) - Evaluation Current Stage of Sepsis: Sepsis Possible source of Sepsis: positive: Pulmonary - Sepsis Criteria Sepsis Criteria: Recorded Heart Rate greater than 90 bpm, Respiratory: Increasing oxygen requirements, WBC count greater than 10% bands, WBC count greater than 12,000 or less than 4000 Assessment/Plan - Problem List (1) Sepsis Impression: There is obvious worsening multifocal pneumonia with groundglass opacities as per CTA with no evidence of pulmonary embolism. Secondary to Multi lobar pneumonia with extensive consolidation and groundglass opacities throughout both lungs. Community-acquired pneumonia with a component of aspiration perhaps (chronic "silent" aspiration), Versus atypical pneumonia such as mycoplasma or PCP pneumonia which would benefit from a bronchoscopy if patient's respiratory status further declines. Would change antibiotics to clindamycin plus Rocephin patient has adentulous status which may places him at high risk for further aspiration events. Speech pathology is following currently on a dysphagia mechanical altered diet. Continue with pulmonary toileting, nebs, steroids, incentive spirometry and supportive medical management. Blood cultures to follow. Hypotension was corrected and does not require pressor support. Patient had a right sided central venous catheter placement terminating in the distal SVC. There are persistent patchy bilateral L space opacities compatible with consolidation with developing small to moderate right-sided effusion. (2) Multilobar lung infiltrate>MRSA Impression: CT chest shows extensive multifocal consolidation and groundglass opacities throughout the both lungs concerning for multifocal pneumonia. Trace bilateral pleural effusions as well as bilateral pleural thickening, which may indicate sequela of previous complicated pleural effusions. No evidence of loculations or indication to think this was an empyema. We will at this time discontinue clindamycin and add Zosyn for broad-spectrum coverage for patient's sepsis along with vancomycin as patient has MRSA in sputum as well as in his nares likely with infection to the lungs at this time. Pharmacy has been consulted for vancomycin dosing (3) Acute hypoxemic respiratory failure secondary to multilobar MRSA pneumonia. We will continue with CPAP and transition to BiPAP if needed to recruit more alveoli along with Acapella as patient has very pronounced rales bibasilarly. Likely MRSA infection and pneumonia that will probably require bronchoscopy as patient has high risk of mucous plugging. (4) New onset a-fib, RVR Impression: Patient had confirmation of RVR A. fib on EKG with 2 sets of troponins that were unremarkable initially started on metoprolol however blood pressures did not tolerate. This is likely secondary to patient's aspiration pneumonia/community acquired pneumonia with MRSA in sputum likely causing infection. Patient was tolerated on digoxin for paroxysmal A. fib had converted to normal sinus rhythm. However patient has had RVR A. fib along with PVCs now on diltiazem drip. Chads VASC is 4 points. Eliquis was started. Due to patient's hypotensive events will likely receive a CVP line. (6) Chronic Diastolic Congestive heart failure Impression: Patient has diastolic dysfunction CHF grade 1 with ejection fraction of 50-55%. Qualifiers: Heart failure type: diastolic Heart failure chronicity: chronic Qualified Code(s): I50.32 - Chronic diastolic (congestive) heart failure (7) History of coronary artery disease Impression: Coronary disease with history of chronic angina for which patient was previously taking Ranexa. Has history of stents x14. Would consult and or call primary ca rdiologist as patient will have Eliquis added onto his aspirin and Plavix for which he currently takes. (8) Hyperlipidemia Impression: Continue with statin Qualifiers: Hyperlipidemia type: unspecified Qualified Code(s): E78.5 - Hyperlipidemia, unspecified (9) JAUN on CPAP Impression: Continue with CPAP, On home settings. Patient was on nasal CPAP at 7 L with poor oxygenation. (10) Type 2 diabetes mellitus with hyperglycemia Impression: Continue with glycemic control. Qualifiers: Diabetes mellitus lobsterman insulin use: with lobsterman use Qualified Code(s): E11.65 - Type 2 diabetes mellitus with hyperglycemia; Z79.4 - [facility] (current) use of insulin (11) Generalized weakness Impression: Physical therapy to evaluate for physical decondition status. (12) Severe protein-calorie malnutrition Impression: Optimize medical and nutritional management, Megace and Remeron on board for failure to thrive and anorexia. (13) Oropharyngeal dysphagia Impression: Patient with "silent" aspiration on barium with an MBSS showing a "slowing" hypopharynx along with vallecular pooling. Currently his diet is at a dysphagia mechanical altered diet with thin liquids to be replaced by speech pathology. Likelihood of patient chronically aspirating is high due to the involvement of the right middle lobe and bilateral lobes on presentation. Respiratory culture growing rare gram-positive cocci in pairs as well as rare fungal hyphae as this may be anuj normal. Speech pathology to continue working with patient for cueing as he eats as well as controlling swallowing and perhaps training patient. Total critical time is 35 minutes
[2018-11-12] MEDS: MOMETASONE FUROATE NAS SCH ×2 (11:04→22:22)
--- NOTE | 2018-11-12 11:43 | PROCEDURE REPORT ---
Hospitalist Procedure Note - Procedure Note Procedure Note: Patient signed consent for a right IJ Indication: Sepsis with associated MRSA pneumonia and hypotension with RVR A. fib requiring CVP line placement Procedure: Patient was placed in Trendelenburg and sterile prep was applied to right anterior neck; chlorhexidine prep. Patient required about 3 mL's of lidocaine. Ultrasound guidance was employed. Central line was placed with estimated blood loss less than 5 mL's. All ports were flushed appropriately, bi as site was placed as well as Tegaderm upon completion of CVP line placement.Patient tolerated procedure well with a post procedural chest x-ray showing good line placement and no pneumothorax. Patient to continue with IV fluids to address hypotension and dehydrated status along with diltiazem drip and may draw labs from central line. May also draw blood cultures from central line. Total procedural time: 45 minutes
[2018-11-12] MEDS: PIPERACILLIN/TAZOBACTAM 4.5 GM in SODIUM CHLORIDE 0.9% MINIBAG 100 ML IV SCH ×3 (11:54→22:49)
[2018-11-12] MEDS: SODIUM CHLORIDE FLUSH 0.9% 10 ML SYRINGE IVP PRN ×3 (11:54→14:56)
[2018-11-12] MEDS ORDERED: VANCOMYCIN INJ 1 GM, VANCOMYCIN INJ 250 MG in SODIUM CHLORIDE 0.9% 250 ML IV ONE (12:00)
[2018-11-12] MEDS: POLYETHYLENE GLYCOL 3350 17 GM PACKET PO SCH (12:27)
[2018-11-12] MEDS: METOPROLOL SUCCINATE 25 MG TABLET PO SCH (12:29)
[2018-11-12] MEDS: MIN OIL/DIMETHICON/COCONUT OIL 92 GM TUBE TOP PRN ×2 (12:34→16:34)
--- NOTE | 2018-11-12 13:17 | XRAY Report ---
Reason: Central line Procedure Date: 11/12/2018 Accession Number: [id number] / [id number] Procedure: XR - Chest for Line Placement CPT Code: FULL RESULT: EXAM: CHEST RADIOGRAPHY EXAM DATE: 11/12/2018 11:41 AM. CLINICAL HISTORY: Central line placement. COMPARISON: CHEST 2 VIEW 11/09/2018 8:59 PM CHEST W/O 11/11/2018 2:56 PM. TECHNIQUE: 1 view. FINDINGS: Lungs/Pleura: Patchy bilateral opacities are present, compatible with consolidation. There is suggestion of right pleural effusion, increased from previous CT scan. No evidence of pneumothorax present. Mediastinum: Within exam limitations, the cardiomediastinal contour is normal. Poststernotomy changes noted. Other: Right sided central venous catheter is noted to terminate in the distal SVC. IMPRESSION: 1. Patchy bilateral airspace opacities compatible with consolidation with developing small to moderate right effusion. 2. Right-sided central venous catheter terminating in the distal SVC. RADIA
[2018-11-12] MEDS: SODIUM CHLORIDE 0.9% 1,000 ML IV SCH ×2 (14:37→22:20)
[2018-11-12] MEDS: NITROGLYCERIN SL 0.4 MG TABLET SL PRN ×2 (19:02→22:00)
[2018-11-12] MEDS: methylPREDNISolone SUCCINATE 40 MG/ML VIAL IVP SCH (20:42)
[2018-11-12] MEDS ORDERED: GABAPENTIN 300 MG CAPSULE PO SCH (21:00)
[2018-11-12] MEDS: ATORVASTATIN 40 MG TABLET PO SCH (21:44)
[2018-11-12] MEDS: EZETIMIBE 10 MG TABLET PO SCH (21:45)
[2018-11-12] MEDS: diltiaZEM INJ 125 MG in DEXTROSE 5% 100 ML IV SCH (22:11)
[2018-11-12] MEDS: INSULIN GLARGINE 300 UNIT/3 ML PEN SUBQ SCH (22:24)
[2018-11-12] MEDS ORDERED: DIGOXIN 500 MCG/2 ML AMP IVP STA (23:32)
[2018-11-13] MEDS ORDERED: FUROSEMIDE 40 MG/4 ML VIAL IVP SCH (00:17)
[2018-11-13] MEDS: VANCOMYCIN INJ 1 GM in SODIUM CHLORIDE 0.9% 250 ML IV SCH ×2 (00:36→12:47)
[2018-11-13] MEDS: LORazepam 2 MG/ML VIAL IVP PRN ×2 (00:36→04:19)
[2018-11-13] MEDS: SODIUM CHLORIDE FLUSH 0.9% 10 ML SYRINGE IVP SCH ×2 (00:37→09:03)
[2018-11-13 00:46] LABS: DIGOXIN > 8.0 ng/mL
--- NOTE | 2018-11-13 01:01 | XRAY Report ---
Reason: DYSPNEA W AFIB Procedure Date: 11/13/2018 Accession Number: [id number] / [id number] Procedure: XR - Chest 1 View X-Ray CPT Code: 58883 FULL RESULT: EXAM: CHEST RADIOGRAPHY EXAM DATE: 11/13/2018 12:53 AM. CLINICAL HISTORY: DYSPNEA W AFIB. COMPARISON: CHEST FOR LINE PLACEMENT 11/12/2018 11:26 AM. TECHNIQUE: 1 view. FINDINGS: Lungs/Pleura: Stable widespread infiltrates. Right greater than left effusion. No pneumothorax. Mediastinum: Stable postoperative changes. Other: Right jugular central venous catheter terminating in the superior vena cava. IMPRESSION: Stable widespread airspace disease and effusions. No significant interval change. RADIA
[2018-11-13 01:10] LABS: CALCIUM 8.1 mg/dL (8.5-10.3); CREATININE 0.8 mg/dL (0.6-1.2); MAGNESIUM 2.2 mg/dL (1.7-2.8)
[2018-11-13] MEDS ORDERED: MAGNESIUM SULFATE 2 GRAM 2 GM/50 ML BAG IV ONE (03:02)
[2018-11-13 03:26] LABS: VBG PCO2 42.4 mmHg (41-51); VBG PH 7.332 (7.31-7.41)
[2018-11-13 03:27] LABS: VBG BASE EXCESS -3.8 mmol/L (-2 - +2); VBG PO2 52.5 mmHg (25-47); VBG TOTAL CO2 23.3 mmol/L (24-29)
[2018-11-13] MEDS: methylPREDNISolone SUCCINATE 40 MG/ML VIAL IVP SCH (05:25)
[2018-11-13] MEDS: PIPERACILLIN/TAZOBACTAM 4.5 GM in SODIUM CHLORIDE 0.9% MINIBAG 100 ML IV SCH ×2 (05:25→10:57)
[2018-11-13] MEDS: PANTOPRAZOLE 40 MG TABLET PO SCH (05:32)
[2018-11-13] MEDS ORDERED: PANTOPRAZOLE 40 MG VIAL IVP SCH (07:00)
[2018-11-13 07:10] LABS: BASOPHILS % (AUTO) 0.1 %; HGB - HEMOGLOBIN 10.7 g/dL (14.0-18.0); LYMPHOCYTES # (AUTO) 0.2 10^3/uL (1.5-3.5); LYMPHOCYTES % (AUTO) 1.3 %; MEAN CORPUSCULAR HEMOGLOBIN 28.8 pg (27.0-31.0); MEAN CORPUSCULAR HGB CONC 32.8 g/dL (32.0-36.0); MEAN PLATELET VOLUME 8.2 fL (7.4-11.4); MONOCYTES % (AUTO) 5.5 %; NEUTROPHILS # (AUTO) 16.5 10^3/uL (1.5-6.6); NEUTROPHILS % (AUTO) 93.1 %; PLT - PLATELET COUNT 213 10^3/uL (130-450); RED BLOOD COUNT 3.73 10^6/uL (4.70-6.10); RED CELL DISTRIBUTION WIDTH 15.9 % (12.0-15.0); WHITE BLOOD COUNT 17.7 x10^3/uL (4.8-10.8)
[2018-11-13 07:18] LABS: ABG BASE EXCESS -3.4 mmol/L (-2.0-3.0); ABG OXYGEN SATURATION 91 % (94-98); ABG PCO2 41 mmHg (34-45); ABG PH 7.35 (7.35-7.45); ABG PO2 64 mmHg (80-100); ABG TCO2 23.2 MMOL/L (21.0-29.0); ALLEN TEST POSITIVE
[2018-11-13 07:22] LABS: ALBUMIN 2.5 g/dL (3.2-5.5); ALBUMIN/GLOBULIN RATIO 0.7 (1.0-2.2); ALKALINE PHOSPHATASE 103 IU/L (42-121); ALT ALANINE AMINOTRANSFERASE 32 IU/L (10-60); AST ASPARTATE AMINOTRANSFERASE 28 IU/L (10-42); BILIRUBIN,TOTAL 0.6 mg/dL (0.2-1.0); BUN - BLOOD UREA NITROGEN 15 mg/dL (6-20); CARBON DIOXIDE - CO2 24 mmol/L (21-32); CHLORIDE 105 mmol/L (101-111); CREATININE 0.9 mg/dL (0.6-1.2); GFR - MDRD 83 (>89); GLUCOSE 286 mg/dL (70-100); MAGNESIUM 2.8 mg/dL (1.7-2.8); PHOSPHORUS 2.7 mg/dL (2.5-4.6); SODIUM 137 mmol/L (135-145)
[2018-11-13] MEDS: diltiaZEM INJ 125 MG in DEXTROSE 5% 100 ML IV SCH (07:41)
[2018-11-13] MEDS: LEVALBUTEROL 1.25 MG/3 ML NEB INH SCH ×2 (07:41)
[2018-11-13] MEDS: IPRATROPIUM 0.2 MG/ML NEB INH SCH ×2 (07:41)
[2018-11-13] MEDS ORDERED: INSULIN ASPART 300 UNIT/3 ML PEN SUBQ SCH (08:00)
[2018-11-13 08:57] LABS: HB2 TOTAL 12.7 g/dL; HEMOGLOBIN A1C 1.03 g/dL; HEMOGLOBIN A1C % 9.6 % (4.6-6.2)
[2018-11-13] MEDS ORDERED: CHLORHEXIDINE GLUCONATE 15 ML UDC PO SCH (09:00)
[2018-11-13] MEDS: ASPIRIN EC 81 MG TABLET PO SCH (09:01)
[2018-11-13] MEDS: APIXABAN 5 MG TABLET PO SCH (09:01)
[2018-11-13] MEDS: ASCORBIC ACID CHEW 500 MG TABLET PO SCH (09:01)
[2018-11-13] MEDS: MEGESTROL 400 MG/10 ML UDC PO SCH (09:02)
[2018-11-13] MEDS: MAGNESIUM OXIDE 400 MG TABLET PO SCH (09:02)
[2018-11-13] MEDS: FAMOTIDINE 20 MG TABLET PO SCH (09:02)
[2018-11-13] MEDS: MOMETASONE FUROATE NAS SCH (09:02)
[2018-11-13] MEDS: METOPROLOL SUCCINATE 25 MG TABLET PO SCH (09:02)
[2018-11-13] MEDS: CLOPIDOGREL 75 MG TABLET PO SCH (09:02)
[2018-11-13] MEDS: SERTRALINE 25 MG TABLET PO SCH (09:02)
[2018-11-13] MEDS: MULTIVITAMIN TABLET PO SCH (09:02)
[2018-11-13] MEDS: POLYETHYLENE GLYCOL 3350 17 GM PACKET PO SCH (09:02)
--- NOTE | 2018-11-13 09:38 | XRAY Report ---
Reason: worsening MRSA PNA Procedure Date: 11/13/2018 Accession Number: [id number] / [id number] Procedure: XR - Chest 1 View X-Ray CPT Code: 95002 FULL RESULT: EXAM: CHEST RADIOGRAPHY EXAM DATE: 11/13/2018 08:20 AM. CLINICAL HISTORY: Worsening MRSA PNA. COMPARISON: Chest radiograph from 11/13/2018 at 0037 hours, 11/09/2018. TECHNIQUE: 1 view. FINDINGS: Lungs/Pleura: There are extensive patchy airspace opacities throughout both lungs. Consolidation in the left base appears increased with obscuration of the left hemidiaphragm. In addition, left upper lung opacity also appears increased. Small bilateral pleural effusions demonstrated. No pneumothorax. Mediastinum: Cardiomediastinal silhouette is obscured. Other: Mediastinal surgical clips and sternal wires present. Right IJ catheter terminates in the region of the distal SVC. IMPRESSION: 1. Extensive bilateral airspace opacities, compatible with multifocal pneumonia. Opacities in the left upper lung and base appear increased since the prior examination. 2. No significant change in small bilateral pleural effusions. RADIA
[2018-11-13] MEDS: SODIUM CHLORIDE 0.9% 1,000 ML IV SCH (10:02)
[2018-11-13] MEDS ORDERED: MORPHINE 2 MG/ML CARPUJECT IVP PRN (10:19)
[2018-11-13] MEDS ORDERED: ASPIRIN 300 MG SUPP PR SCH (11:00)
[2018-11-13] MEDS ORDERED: MIDAZOLAM 2 MG/2 ML VIAL ONE (11:27)
[2018-11-13] MEDS ORDERED: PROPOFOL 200 MG/20 ML VIAL IVP ONE (11:27)
[2018-11-13] MEDS ORDERED: KETAMINE 500 MG/10 ML VIAL ONE (11:28)
[2018-11-13] MEDS ORDERED: ETOMIDATE 40 MG/20 ML VIAL IVP ONE (11:28)
[2018-11-13] MEDS ORDERED: PROPOFOL 1000 MG/100 ML 100 ML IV ONE (11:29)
[2018-11-13] MEDS ORDERED: MIDAZOLAM DRIP 50 MG/100 ML BAG IV SCH ×2 (12:00→13:00)
[2018-11-13] MEDS ORDERED: LEVALBUTEROL 1.25 MG/3 ML NEB INH SCH (12:00)
[2018-11-13] MEDS ORDERED: INSULIN REGULAR HUMAN 100 UNIT/1 ML 10 ML MDV SUBQ SCH (12:00)
--- NOTE | 2018-11-13 12:33 | PROCEDURE REPORT ---
Hospitalist Procedure Note - Procedure Note Procedure Note: S: patient was agitated and AMS with worsening SOB O: VS unstable with po2 60's abg's despite Bipap, encephalopathic, decreased BS with worsenign rales and neuro intact Labs: reviewed Imaging: reviewed A/P: (1) Sepsis Impression: There is obvious worsening multifocal pneumonia with groundglass opacities as per CTA with no evidence of pulmonary embolism. Secondary to Multi lobar pneumonia with extensive consolidation and groundglass opacities throughout both lungs. Community-acquired pneumonia with a component of aspiration perhaps (chronic "silent" aspiration), Versus atypical pneumonia such as mycoplasma or PCP pneumonia which would benefit from a bronchoscopy if patient's respiratory status further declines. Would change antibiotics to clindamycin plus Rocephin patient has adentulous status which may places him at high risk for further aspiration events. Speech pathology is following currently on a dysphagia mechanical altered diet. Continue with pulmonary toileting, nebs, steroids, incentive spirometry and supportive medical management. Blood cultures to follow. Hypotension was corrected and does not require pressor support. Patient had a right sided central venous catheter placement terminating in the distal SVC. There are persistent patchy bilateral L space opacities compatible with consolidation with developing small to moderate right-sided effusion. (2) Multilobar lung infiltrate>MRSA Impression: Required sedation, intubation and Mech ventilation for worsening hypoxemia sec to MRSA PNA with encepholapathy and unable to protect airways. CT chest shows extensive multifocal consolidation and groundglass opacities throughout the both lungs concerning for multifocal pneumonia. Trace bilateral pleural effusions as well as bilateral pleural thickening, which may indicate sequela of previous complicated pleural effusions. No evidence of loculations or indication to think this was an empyema. We will at this time discontinue cli ndamycin and add Zosyn for broad-spectrum coverage for patient's sepsis along with vancomycin as patient has MRSA in sputum as well as in his nares likely with infection to the lungs at this time. Pharmacy has been consulted for vancomycin dosing (3) Acute hypoxemic respiratory failure secondary to multilobar MRSA pneumonia. Required sedation, intubation and Mech ventilation for worsening hypoxemia sec to MRSA PNA with encepholapathy and unable to protect airways. (4) New onset a-fib, RVR Impression: Patient had confirmation of RVR A. fib on EKG with 2 sets of troponins that were unremarkable initially started on metoprolol however blood pressures did not tolerate. This is likely secondary to patient's aspiration pneumonia/community acquired pneumonia with MRSA in sputum likely causing infection. Patient was tolerated on digoxin for paroxysmal A. fib had converted to normal sinus rhythm. However patient has had RVR A. fib along with PVCs now on diltiazem drip. Chads VASC is 4 points. Eliquis was started. Due to patient's hypotensive events will likely receive a CVP line. (6) Chronic Diastolic Congestive heart failure Impression: Patient has diastolic dysfunction CHF grade 1 with ejection fraction of 50-55%. Qualifiers: Heart failure type: diastolic Heart failure chronicity: chronic Qualified Code(s): I50.32 - Chronic diastolic (congestive) heart failure (7) History of coronary artery disease Impression: Coronary disease with history of chronic angina for which patient was previously taking Ranexa. Has history of stents x14. Would consult and or call primary physician primary care sports medicine as patient will have Eliquis added onto his aspirin and Plavix for which he currently takes. (8) Hyperlipidemia Impression: Continue with statin Qualifiers: Hyperlipidemia type: unspecified Qualified Code(s): E78.5 - Hyperlipidemia, unspecified (9) JAUN on CPAP Impression: Continue with CPAP, On home settings. Patient was on nasal CPAP at 7 L with poor oxygenation. (10) Type 2 diabetes mellitus with hyperglycemia Impression: Continue with glycemic control. Qualifiers: Diabetes mellitus terminologist insulin use: with terminologist use Qualified Code(s): E11.65 - Type 2 diabetes mellitus with hyperglycemia; Z79.4 - [facility] ([facility] use of insulin (11) Generalized weakness Impression: Physical therapy to evaluate for physical decondition status. (12) Severe protein-calorie malnutrition Impression: Optimize medical and nutritional management, Megace and Remeron on board for failure to thrive and anorexia. (13) Oropharyngeal dysphagia Impression: Required sedation, intubation and Mech ventilation for worsening hypoxemia sec to MRSA PNA with encepholapathy and unable to protect airways. Patient with "silent" aspiration on barium with an MBSS showing a "slowing" h ypopharynx along with vallecular pooling. Currently his diet is at a dysphagia mechanical altered diet with thin liquids to be replaced by speech pathology. Likelihood of patient chronically aspirating is high due to the involvement of the right middle lobe and bilateral lobes on presentation. Respiratory culture growing rare gram-positive cocci in pairs as well as rare fungal hyphae as this may be anuj normal. Speech pathology to continue working with patient for cueing as he eats as well as controlling swallowing and perhaps training patient. Procedure note: Diagnosis: Acute worsening hypoxemic respiratory failure unable to tolerate BiPAP, MRSA multifocal pneumonia with superimposed aspiration that has progressed and worsened acute hypoxemic encephalopathy RVR atrial fibrillation Indication: Patient unable to tolerate BiPAP and is altered mental with a component of hypoxemic encephalopathy requiring intubation unable to protect airways. Procedure: Patient was Prepared with assessment of the airway medications checking of the equipment and placing a monitor and positioning of the patient were achieved. Preoxygenation with 100% Ambu bag for about 3 minutes was achieved. Patient did not receive pretreatment as patient responded well to succinylcholine for paralysis with a depolarizing neuromuscular blockade. Rapid sequence Intubation was initiated at 11:35 AM with 100 mg of succinylcholine IV x1 or saturations were 93%, 97 heart rate saline flush subsequently saturations decreased to 84% and heart rate down to 79 while patient was being Ambu bag with preoxygenation. Patient quickly desaturated down to 75% while being Ambu bag with increasing seal around mouth. Protection from aspiration with cricoid pressure was applied. Placement of ET tube with proof of end-tidal CO2 detector. Glieidoscope was introduced with an intubation at 11 3 7 AM. Co- oximetry was monitored with good placement of ET tube 7.5 with bilateral coarse sounds however increase chest rise bilaterally was obtained. Depth of insertion approximately 3-4 cm beyond the cords and placed at 24 cm for this patient. At 11:40 AM saturations improved to 89% and then subsequently to 93% once patient was hooked up to SIMV at a rate of 20 tidal volume 450 ml, FiO2 of 80%, PEEP of 5 with a pressure support of 12. At 11:40 AM saturations at 93% heart rate of 103 atrial fibrillation. Post intubation management with confirmation of chest x-ray of ET tube and ongoing Versed drip was achieved. Total critical time: 30 min
[2018-11-13 12:46] LABS: ABG HCO3 23.6 mmol/L (22.0-26.0); ABG PCO2 55 mmHg (34-45); ABG PH 7.25 (7.35-7.45); ABG PO2 76 mmHg (80-100); ABG TCO2 25.3 MMOL/L (21.0-29.0)
[2018-11-13 12:47] LABS: ABG OXYGEN SATURATION 93 % (94-98); ALLEN TEST POSITIVE
[2018-11-13] MEDS ORDERED: PROPOFOL 1000 MG/100 ML 100 ML IV SCH (13:00)
--- NOTE | 2018-11-13 14:08 | XRAY Report ---
Reason: post intubation and NG tube placement Procedure Date: 11/13/2018 Accession Number: [id number] / [id number] Procedure: XR - Chest 1 View X-Ray CPT Code: 76561 FULL RESULT: EXAM: CHEST RADIOGRAPHY EXAM DATE: 11/13/2018 12:24 PM. CLINICAL HISTORY: Post intubation and NG tube placement. COMPARISON: CHEST 1 VIEW 11/13/2018 8:05 AM. TECHNIQUE: 1 view. FINDINGS: Lungs/Pleura: Diffuse bilateral infiltrates/consolidation seen. Small bilateral pleural effusions are present. Mediastinum: Within exam limitations, the cardiomediastinal contour is normal. Poststernotomy changes noted. Other: Patient is intubated, with ET tube tip approximately 4.5 cm above the enma. Right-sided central venous catheter terminates at the caval atrial junction. IMPRESSION: 1. Diffuse bilateral infiltrates/consolidation noted with small effusions. 2. Lines and supporting devices as above. RADIA
--- NOTE | 2018-11-13 14:26 | Discharge Plan ---
Discharge Plan Disposition: 02 Transfer Acute Care Hosp Condition: Critical Activity Restrictions: Additional Comments (Bedrest for now) Additional Instructions or Follow Up instructions: Patient will be transferred to [facility] mechanically ventilated and intubated to continue with Versed and propofol drip sedation protocol continue with active MAR. Patient is currently n.p.o. No Smoking: If you smoke, Please STOP! Call for help. Follow-up with: Travon Morales MD [Primary Care Provider] - 4 Weeks
--- NOTE | 2018-11-13 14:31 | DISCHARGE SUMMARY ---
"Discharge Summary Admit Date: 11/09/18 Discharge Date: 11/13/18 Discharging Provider: Dr. Silva Primary Care Provider: Travon Morales Code Status: Attempt Resuscitation Condition at Discharge: Critical Discharge Disposition: 02 Transfer Acute Care Hosp Discharge Facility Name: [facility] - DIAGNOSES Admission Diagnoses: (1) Severe sepsis (2) CAP (community acquired pneumonia) (3) Type 2 diabetes mellitus with hyperglycemia (4) Congestive heart failure (5) COPD (chronic obstructive pulmonary disease) (6) History of coronary artery disease (7) Hyperlipidemia (8) Hypertension (9) JAUN on CPAP Discharge Diagnoses with Status of Each Condition: (1) Sepsis, Stable (2) Multilobar lung infiltrate>MRSA, Worsening (3) Acute hypoxemic respiratory failure secondary to multilobar MRSA pneumonia. Progressive and worsening (4) New onset a-fib, RVR. Stable (5) Chronic Diastolic Congestive heart failure. Chronic and stable (6) History of coronary artery disease. Chronic and stable (7) JAUN on CPAP. Chronic and stable (8) Type 2 diabetes mellitus with hyperglycemia. Chronic and stable (9) Generalized weakness, Progressive (10) Severe protein-calorie malnutrition, Chronic and stable (11) Oropharyngeal dysphagia, Progressive stable - HPI History of Present Illness: Patient is a very pleasant 73-year-old gentleman past medical history significant for coronary artery disease status post 14 stents most recent stent in July 2018 on Plavix and aspirin, insulin-dependent diabetes mellitus type 2, hypertension, hyperlipidemia, congestive heart failure with unknown ejection fraction, Obstructive sleep apnea on CPAP and COPD who presented to the emergency department with a chief complaint of generalized weakness. The patient states that he was in his normal state of health until a couple of weeks ago when he states that he began having coughing spells, felt as though his chest was congested and was short of breath with exertion. The patient states that at that time he also was feeling chest pain with deep inspirations. He also complained of having body aches and fevers. He states although he was feeling very sick unfortunately his was also sick and was hospitalized at [facility] and recently . He states that due to everything that was going on in his life he did not get a chance to see the doctor. He states that for a little while his symptoms seem to improve but then over the last few days he has felt increasingly weak. He states that today he was so weak he could not even turn in his bed to pick up attendant the phone as his daughter was trying to call him. He states that he had to go to the bathroom so he somehow was able to manage to get out of the bed and then held onto the harmon to get into the bathroom. He states that once he got up to the bathroom he was shaking and had chills. He ended up urinating all over the floor. He states that he slipped on the urine and fell and hit his head on the toilet. He states that he tried to get up and fell again and hit his head on the toilet once again. He states that he did not lose consciousness but was on the floor for 2- 3 hours before he was finally able to crawl to a phone and contact his daughter. The patient's daughter then called EMS who came to the patient's home. The patient does admit to a headache but denies any focal neurologic deficits. He states that he remembers the entire incident from this morning. He denies any blurred vision. He states that he did have some chest pain yesterday but it has resolved. He also states that he feels nauseated but denies vomiting. The patient admits to continued shortness of breath with exertion and a dry cough. The patient also states that he has lost 10-15 pounds since his as he has not been eating well and has been feeling very depressed. The patient denies any runny nose, sore throat, nasal congestion, difficulty swallowing, orthopnea, PND, increased lower extremity swelling, abdominal pain, diarrhea, constipation, urinary urgency, urinary frequency, dysuria, joint sw elling, joint pain, back pain, neck stiffness, skin rash, skin changes, dizziness, lightheadedness, syncope, night sweats or any changes in his appetite. On presentation to the emergency department the patient was febrile with a low- grade temperature of 37.9, tachycardic with a heart rate of 107 and had relative hypotension with blood pressure as low as 97/67. The patient was also found to be hypoxic with oxygen saturation down to 91% on room air. The patient was placed on 2 L of oxygen. The patient's initial lab work revealed a leukocytosis with a white blood cell count of 17.9, bandemia with 22% bands and an elevated lactic acid of 2.8. The patient's blood glucose was also elevated at 207. The patient's urinalysis was negative and influent a and B were negative. The patient's chest x-ray revealed bilateral peripheral midlung and anterior right base infiltrates. Patient also had a CT of his head given his fall which showed no acute fracture or bleed. The patient's EKG showed sinus tachycardia with no ST elevations or acute ischemic changes. The patient's troponin was negative. The patient's pneumonia severity index score was 91 which puts him at risk class IV with 8.2-9.3% mortality. Based on the score hospitalization is recommended. The patient was admitted to the medical so with sepsis due to community- acquired pneumonia. In the emergency department the patient received IV vancomycin and cefepime for treatment of his pneumonia. - CONSULTS | PROCEDURES Consultations: Dr. Harry Cerna pulmonology/sifter and miller at [facility]. Procedures: Sedation intubation and mechanical ventilation on 11/13/18 Ruiz catheter placement on 11/13/18 Ultrasound-guided Right internal jugular central line placement on 11/12/18 Echocardiogram showing a preserved ejection fraction and grade 1 diastolic dysfunction 50-55% ejection fraction - HOSPITAL COURSE Hospital Course: Mr. Parker Henriquez is a pleasant 73-year-old gentleman with significant cardiovascular comorbidities to include coronary artery disease status post 14 stents with most recent stent in July 2018 on Plavix and aspirin, insulin- dependent type 2 diabetes mellitus, hypertension, hyperlipidemia, diastolic heart failure stage I with ejection fraction of 55% study done here at [facility], obstructive sleep apnea on CPAP, COPD who essentially was complaining of generalized weakness with progressive shortness of breath on admission. Patient's initial lactic was 2.8, 22% bands and a WBC of 17.9 with a fever 37.9 C and tachycardic. Initially the source was found to be community-acquired pneumonia with severe sepsis as the initial presentation on chest x-ray showed bilateral Peripheral midlung in anterior right base infiltrates. However throughout hospitalization patient began having increasing oxygen requirements with nasal cannula up to 4 L and then switch over to an Oxymizer with intermittent BiPAP. Serial chest x-rays and serial ABGs confirmed worsening multifocal pneumonia. Throughout interim patient had agitation which was not relieved with Ativan and/or other medications like morphine. Patient's agitation and presumed hypoxemic encephalopathy prevented further noninvasive positive pressure ventilation.Patient did not respond to duo nebs, Solu-Medrol and aggressive IV antibiotics which was initially started with azithromycin and Rocephin and then changed over to clindamycin and Rocephin. Patient did grow out MRSA in sputum. Blood cultures x2 were negative growth to date. Patient had a CTA which showed no pulmonary embolism and multifocal/multilobar pneumonia presumedly MRSA pneumonia. Patient required intubation due to unable to protect airways and worsening pneumonia with acute hypoxemic respiratory failure (patient was not O2 dependent coming in). Patient received a central line placement with a right internal jugular ultrasound-guided on 11/12/18. Patient also developed a RVR A. fib which diltiazem drip was started with 4 sets of troponins unremarkable with no ST-T wave abnormalities. Coronary disease with history of chronic angina for which patient was previously taking Ranexa. Patient was resumed on aspirin and Plavix and the addition of Eliquis throughout hospitalization. Patient was previously anticoagulated with Eliquis that was started on this admission. Patient did have a history of oral pharyngeal dysphagia due to a edentulous status and previously worked up in September by speech pathology who had determined patient had a pooling at the level of the vallecula with slowing swallowing response. Patient had been on dysphagia mechanical altered diet. CT chest shows extensive multifocal consolidation and groundglass opacities throughout the both lungs concerning for multifocal pneumonia. Trace bilateral pleural effusions as well as bilateral pleural thickening, which may indicate sequela of previous complicated pleural effusions. No evidence of loculations or indication to think this was an empyema. Zosyn for broad-spectrum coverage for patient's sepsis along with vancomycin as patient has MRSA in sputum as well as in his nares likely with infection to the lungs at this time. Pharmacy has been consulted for vancomycin dosing. Patient was subsequently intubated due to acute hypoxemic respiratory failure and worsening hypoxemic seen on serial ABGs and unable to tolerate BiPAP with altered mental status/hypoxic encephalopathy. Patient was paralyzed with succinyl choline with uncomplicated intubation using kaleidoscope. Patient was subsequentlyPlaced on SIMV at an RR of 20 with tidal volume of 450 with a PEEP of 5 pressure support of 12 and an FiO2 of 80%. Post intubation chest x-ray and management were continued. Transfer was obtained through [facility] and I spoke to a college athletic director by name of Dr. Haryr Cerna who accepted the patient for possible bronchoscopy and continuation of critical care management with mechanical ventilation. - ALLERGIES Allergies/Adverse Reactions: Allergies Allergy/AdvReac Type Severity Reaction Status Date / Time amiodarone Allergy Severe Anaphylaxis Verified 11/09/18 20:09 levodopa Allergy Severe Nausea Verified 11/09/18 20:09 venom-honey bee Allergy Severe Edema/Light Verified 11/09/18 20:09 [bee venom (honey bee)] headed carbidopa Allergy Nausea Verified 11/09/18 20:09 moxifloxacin HCl * AdvReac Severe GI upset Verified 11/09/18 20:09 [From Avelox] - MEDICATIONS Home Medications: Ambulatory Orders Medication Instructions Recorded Confirmed HYDROcod/ACETAM 5/325 [Plessis 5/325] 1 tab PO QID PRN 06/09/13 11/09/18 Insulin Glargine,Hum.rec.anlog 40 unit SQ QPM 06/09/13 11/09/18 [Lantus] Ezetimibe [Zetia] 10 mg PO DAILY PM 02/25/16 11/09/18 Clopidogrel [Plavix] 75 mg PO DAILY 04/23/17 11/09/18 Magnesium Oxide [Magnesium] 500 mg PO DAILY 03/31/18 11/09/18 Acetaminophen [Tylenol] 650 mg PO Q4HR PRN tablet 11/13/18 Apixaban [Eliquis] 5 mg PO BID tablet 11/13/18 Aspirin Supp 300 mg OK DAILY supp 11/13/18 Atorvastatin [Lipitor] 80 mg PO QPM tablet 11/13/18 Insulin Regular Human [NovoLIN R] 1 - 9 unit SUBQ Q6HR ml 11/13/18 Ipratropium [Atrovent] 0.5 mg INH RTQ4H neb 11/13/18 LORazepam INJ [Ativan Inj (Vial)] 0.5 mg IVP Q2H PRN vial 11/13/18 Levalbuterol [Xopenex] 1.25 mg INH Q2HR neb 11/13/18 Multivitamin [Theragran] 1 tab PO DAILY tablet 11/13/18 Nitroglycerin [Nitrostat] 0.4 mg SL Q5MIN PRN tablet 11/13/18 Pantoprazole [Protonix inj] 40 mg IVP QDAC vial 03/10/19 Polyethylene Glycol 3350 [Miralax] 17 gm PO DAILY packet 11/13/18 Sertraline [Zoloft] 25 mg PO DAILY tablet 11/13/18 - PHYSICAL EXAM AT DISCHARGE General Appearance: positive: Other (Patient is sedated intubated mechanically ventilated) Eyes Bilateral: positive: Conjunctivae nml ENT: positive: Pharynx nml, Dry mucous membranes. negative: Pharyngeal erythema, Oral lesions Neck: positive: No JVD, Trachea midline. negative: Carotid bruit Respiratory: positive: Chest non-tender, Rales, Rhonchi, Other (Diffuse crackles to upper and lower bases) Cardiovascular: positive: No gallop, Irregularly irregular. negative: JVD present, Systolic murmur, Diastolic murmur, Friction rub Peripheral Pulses: positive: 2+ Abdomen: positive: No distention, Abnml bowel sounds. negative: Hepatomegaly, Splenomegaly Skin: positive: Warm, Dry Extremities: positive: No pedal edema Neurologic/Psychiatric: positive: Other (Patient sedated intubated mechanically ventilated) Reflexes: Knee (R): 2+, Knee (L): 2+, Ankle (R): 2+, Ankle (L): 2+ - LABS Result Diagrams: 11/13/18 05:25 11/13/18 05:25 - DIAGNOSTIC IMAGING Diagnostic Imaging Results: Final report reviewed (Post intubated chest x-ray shows bilateral coarseAirspace opacities with multifocal pneumonia left upper lobe/left base and small bilateral pleural effusion endotracheal tube in place) - SEPSIS Current Stage of Sepsis: Sepsis Possible source of Sepsis: Pulmonary Confirmed Source and Organism (if known) of Sepsis: MRSA in sputum Sepsis Criteria: Recorded Heart Rate greater than 90 bpm, Recorded Respiratory Rate greater than 20, Respiratory: Increasing oxygen requirements, WBC count greater than 10% bands, WBC count greater than 12,000 or less than 4000, SALES REPRESENTATIVE SALES MANAGER: altered consciousness (unrelated to primary neuro pathology) - FOLLOW UP Follow Up: Follow-up with Dr. Morales in approximately 4 weeks or sooner if patient is discharged from the [facility]. - TIME SPENT Time Spent in Discharge (Minutes): 40"
[2018-11-13] MEDS ORDERED: diltiaZEM INJ 125 MG in DEXTROSE 5% 100 ML IV SCH (15:00)
[2018-11-13 15:18] VITALS: BP 100/57
[2018-11-13] MEDS ORDERED: INSULIN GLARGINE 300 UNIT/3 ML PEN SUBQ SCH (21:00)
[2018-11-14] MEDS ORDERED: PANTOPRAZOLE 40 MG VIAL IVP SCH (07:00)
== END 2018-11-13 14:30 | disposition short-term general hospital (02) | DRG 871 ==
LOC: EDUNIT# → ED 20:03 → MS3 21:59 → ICU 11-11 20:51 → MS2 11-12 22:18 → ICU 11-12 22:20
PROVIDERS: ADMIT Internal Medicine; ATTEND Internal Medicine
PROC: 05HM33Z Insertion of Infusion Device into Right Internal Jugular Vein, Percutaneous Approach (ICD-10-PCS; principal; 2018-11-12)
PROC: 5A1935Z Respiratory Ventilation, Less than 24 Consecutive Hours (ICD-10-PCS; 2018-11-13)
PROC: 0BH17EZ Insertion of Endotracheal Airway into Trachea, Via Natural or Artificial Opening (ICD-10-PCS; 2018-11-13)
DX: A41.9 Sepsis, unspecified organism (principal); J18.9 Pneumonia, unspecified organism; I50.9 Heart failure, unspecified; A41.02 Sepsis due to Methicillin resistant Staphylococcus aureus; J15.212 Pneumonia due to Methicillin resistant Staphylococcus aureus; J96.01 Acute respiratory failure with hypoxia; E43 Unspecified severe protein-calorie malnutrition; I38 Endocarditis, valve unspecified; I49.9 Cardiac arrhythmia, unspecified; G47.30 Sleep apnea, unspecified; I50.42 Chronic combined systolic (congestive) and diastolic (congestive) heart failure; Z68.1 Body mass index [BMI] 19.9 or less, adult; I25.10 Atherosclerotic heart disease of native coronary artery without angina pectoris; R65.20 Severe sepsis without septic shock; Z95.1 Presence of aortocoronary bypass graft; Z95.5 Presence of coronary angioplasty implant and graft; I25.2 Old myocardial infarction; Z79.4 Long term (current) use of insulin; Z79.82 Long term (current) use of aspirin; E11.40 Type 2 diabetes mellitus with diabetic neuropathy, unspecified; K59.09 Other constipation; Z86.010 Personal history of colon polyps; K57.90 Diverticulosis of intestine, part unspecified, without perforation or abscess without bleeding; M19.90 Unspecified osteoarthritis, unspecified site; M79.7 Fibromyalgia; M06.9 Rheumatoid arthritis, unspecified; I48.91 Unspecified atrial fibrillation; I11.0 Hypertensive heart disease with heart failure; G47.33 Obstructive sleep apnea (adult) (pediatric); E11.65 Type 2 diabetes mellitus with hyperglycemia; R13.12 Dysphagia, oropharyngeal phase; E78.5 Hyperlipidemia, unspecified; J44.9 Chronic obstructive pulmonary disease, unspecified; R51 Headache; Z87.891 Personal history of nicotine dependence; R62.7 Adult failure to thrive
CPT/HCPCS: 36415; 36600; 70450; 71045; 71046; 71250; 80048; 80053; 80162; 81003; 82330; 82550; 82553; 82652; 82803; 83036; 83540; 83605; 83690; 83735; 83880; 84100; 84134; 84466; 84484; 85025; 87040; 87070; 87150; 87181; 87205; 87275; 87276; 92610; 93005; 93306; 94640; 94660; 94770; 97161; 99284; 99285; A6250; A9270; J1650; J1815; J2060; J2916; J3370; 81001; 87086